=== PATIENT | female | born 1940 | race Caucasian/White ===

== ENCOUNTER → 2017-03-01 | Outpatient (CLI) | payer MEDICARE, OTHER ==
[2017-01-16 12:48] VITALS: BMI 28.3
[~2017-03-01] MED LIST: ACE325 PO; ACET-1718 PO; ACET-2007 PO; ACET-2031 PO; ACET-3017 PO; ACET500T68 PO; ADV250/50 INH; ADV250/50 PUFF; ALB18R INH; ALBU2.5V36 IH; ALBU2.5V36 INH; ALBU2.5V44 IH; ALBU8.5H IH; ALBU8.5H12 IH; ALBUDR INH; ALE70 PO; ALP5 PO; ALPR-429 PO; ALPR-448 PO; ALPR-459 PO; ALPR-698 PO; AMLO-1 PO; AMPH10CA13 PO; AMPH5CAP7 PO; APIX2.5T PO; APIX5TAB PO; ARTO15 OU; ASC500 PO; ASCO-273 PO; ASPI-719 PO; ASPI1TAB35 PO; ASPI81TA94 PO; AZIT-1 PO; AZIT-17 PO; AZIT500T47 PO; Apixaban PO; BEN100 PO; BENADRYL; BETA15OI20 TP; CEFU500T10 PO; CEL100 PO; CELE-1 PO; CEPH-13 PO; CHOL100062 PO; CHOL200025 PO; CIPR-214 PO; CIPR-215 PO; CIPR-326 PO; CIPR500T12 PO; CIPRO; CLO10 MT; CLON0.5T66 PO; CLOT15CR62 TP; CODE118S5 PO; CRAN400C2 PO; CRANBERRY; CYCL1DRO6 OP; CYCL1DRO6 OU; CYCOD OP; DABI150C3 PO; DAR100 PO; DEX4 PO; DEX5 PO; DEXADRINE; DEXT10CA10 PO; DEXT10CA2 PO; DEXT10CA8 PO; DEXT10TA PO; DEXT5CAP PO; DEXT5TAB PO; DEXT5TAB12 PO; DIG125 PO; DIGO125T73 PO; DIGO125T77 PO; DIGO125T90 PO; DILCD120 PO; DILT-145 PO; DILT120C18 PO; DILT120C28 PO; DILT300C41 PO; DILT30TA35 PO; DILT360C25 PO; DILT360C3 PO; DIPH-740 PO; DOC100 PO; DOCU-202 PO; DOCU-416 PO; DOXY-179 PO; DOXY150C4 PO; DUL30 PO; DULO30CA35 PO; DULO30CA4 PO; DULO60CA51 PO; DULO60CA56 PO; ERYT1OIN3 OP; ERYT1OIN3 OU; ESCI20TA38 PO; ESOM20CA31 PO; ESOM40CA42 PO; ESTR0.5T16 PO; ESTR0.5T18 PO; ESTR1PAT95 PO; ESTR2TAB26 PO; EXC PO; EXCEDRIN; EYELID CLEANSER COMBINATION TOP; FISH OIL; FISH OIL 500 M500 MG PO; FISH OIL1 CAP PO; FLE100 PO; FLU IM; FLU45SYR25 IM ONLY; FLUT16SP20 NS; FLUT1DIS28 IH; FLUT1DIS28 INH; FLUT1DIS29 IH; FLUT9.9S NS; FOLI-68 PO; FOSAMAX; FURO-43 PO; FURO-45 PO; FURO-47 PO; FURO20TA19 PO; GABA-549 PO; GLIM2TAB43 PO; GUAI600T PO; GUAI600T57 PO; HYDR-2966 PO; HYDR12.558 PO; HYDROCHLORATHIAZIDE; IBU200 PO; IRO150 PO; L.AC1CAP6 PO; LACT1CAP6 PO; LEV125 PO; LEV500 PO; LEV88 PO; LEVO-3 PO; LEVO-85 PO; LEVO100T95 PO; LEVO125T77 PO; LEVO150T72 PO; LEVO500T83 PO; LEVOXYL; LIS10 PO; LOR5/325 PO; LORA-630 PO; LORA-802 PO; MAGN-40 PO; MAGN296S6 PO; MAGN400T36 PO; MET10 PO; METH4TAB66 PO; METO-1 PO; METO-221 PO; METO-224 PO; METO-253 PO; METO-257 PO; METO-566 PO; METO-734 PO; METO25TA91 PO; METO25TA93 PO; METO5TAB75 PO; MIR15 PO; MIRT-17 PO; MIRT-20 PO; MIRT-22 PO; MIRT-25 PO; MIRT45TA97 PO; MOM PO; MONT10TA PO; MORP-1 PO; MORP-20 PO; MULT-27 PO; MULT-820 PO; MULT1TAB67 PO; MULTI VITAMIN; MULTIPLE VITAMIN; NIT4 SL; NITR-1 PO; NITR-105 PO; NITR0.3T6 SL; OLME1TAB49 PO; OMEP-125 PO; ONDA4TAB PO; ONDA4TAB97 PO; ONDA8TAB91 PO; OXCA150T45 PO; OXYGEN INH; OXYGENHOME INH; POLY17PO25 PO; POTA20TA10 PO; POTA20TA85 PO; POTA20TA94 PO; PRE10 PO; PRE20 PO; PRED-314 PO; PRED20TA6 PO; PROM-110 PO; RHYTHMOL PO; SENN8.6T34 PO; SPIR25TA78 PO; SPIR50TA31 PO; TEL40 PO; TIAZAC; TIO18R INH; TRAM100T PO; TRAZ-133 PO; TRAZ50 PO; TRI100 PO; TRIA15CR40 TP; VALERIAN ROOT; VEN375 PO; VENL37.514 PO; VENL75CA PO; VENL75CA58 PO; VIT D; VIT-7 PO; VIT500TA6 PO; VITAMIN C; WAR5 PO; WARF-18 PO; WARF2.5T11 PO; WARF2.5T62 PO; ZANTAC; [UNRECOGNIZED DRUG - CODE] PO; [UNRECOGNIZED DRUG - CODE] PO; [UNRECOGNIZED DRUG - CODE] PO; [UNRECOGNIZED DRUG - CODE] PO; [UNRECOGNIZED DRUG - CODE] PO; [UNRECOGNIZED DRUG - CODE] PO; [UNRECOGNIZED DRUG - CODE] PO; [UNRECOGNIZED DRUG - CODE] PO; [UNRECOGNIZED DRUG - CODE] PO; [UNRECOGNIZED DRUG - CODE] TP; [UNRECOGNIZED DRUG - MIXTURE] PO; [UNRECOGNIZED DRUG - OTHER]; [UNRECOGNIZED DRUG - OTHER]; [UNRECOGNIZED DRUG - OTHER] PO
== END ==
LOC: AMB 16:22
PROVIDERS: ATTEND Nurse Practitioner
DX: R55 Syncope and collapse (principal); R42 Dizziness and giddiness; M25.562 Pain in left knee; M25.561 Pain in right knee; W18.30XA Fall on same level, unspecified, initial encounter
CPT/HCPCS: A0425; A0427

== ENCOUNTER → 2017-03-01 | Outpatient (CLI) | payer MEDICARE, OTHER ==
[2017-01-16 12:48] VITALS: BMI 28.3
== END ==
LOC: AMB 18:52
PROVIDERS: ATTEND Nurse Practitioner
DX: Z74.09 Other reduced mobility (principal)
CPT/HCPCS: A0425; A0428

== ENCOUNTER 2017-03-06 22:01 | Emergency (ER) | payer MEDICARE, OTHER ==
[2017-01-16 12:48] VITALS: Ht 162.6 cm; Wt 75.1 kg
[~2017-03-06] VITALS: Ht 162.6 cm; Wt 75.1 kg
[~2017-03-06 22:01] MED LIST changes: -ACET500T68 PO; -CLO10 MT; -FOLI-68 PO; -LACT1CAP6 PO; -POLY17PO25 PO; -SENN8.6T34 PO; -[UNRECOGNIZED DRUG - OTHER]
[2017-03-06] MEDS ORDERED: ALBUTEROL/IPRATROPIUM 3 ML NEB NEB ONE (22:35)
--- NOTE | 2017-03-06 22:59 | ER Report ---
History and Physical Time Seen By MD: 22:08 Hx. of Stated Complaint: REPORTED THAT PT HAD ALTERED MENTAL STATUS. PT CURRENTLY A&OX3. HPI/ROS CHIEF COMPLAINT: Altered mental status, syncope, hypotension HISTORY OF PRESENT ILLNESS: 76-year-old female with a host of complex medical problems, most recently she was diagnosed with ovarian carcinomatosis. She is receiving chemotherapy treatments, the last was approximately 10 days ago. Patient was seen in the ER 5 days ago. Macrobid was added for potential urinary tract infection. She is chronically on Cipro for urinary tract suppression Was brought in by EMS from home. Per report from her family. She was unresponsive in her wheelchair. They documented hypotension. EMS states that she perked up immediately after stimulation from them by transferring her to the ambulance gurney. She was documented have stable vital signs by EMS. Patient's family reports no concurrent illness, fever, chills or productive cough. Patient's had no hypoglycemic episodes. She is chronically on Decadron. Family reports she's not missed any doses. Although adrenal insufficiency is considered. Patient's family also reports slurred speech for several hours prior to the syncopal episode. Patient takes numerous medications which could cause sedation. On arrival. Patient's alert and oriented 3 with stable vital signs and stable, pulse ox. There is an extensive oncology note noted from 02/18/17 which was reviewed. Patient's family notes she's been complaining of a dry sore throat since receiving chemotherapy. REVIEW OF SYSTEMS: Respiratory: No cough, no dyspnea. Cardiovascular: No chest pain, no palpitations. Gastrointestinal: No vomiting, no abdominal pain. Musculoskeletal: No back pain. Allergies: Coded Allergies: tetanus toxoid, adsorbed (Verified Allergy, Severe, HIVES, 03/01/17) SHANNA Inhibitors (Verified Allergy, Mild, 03/01/17) Penicillins (Verified Allergy, Mild, SWELLING, 03/01/17) Sulfa (Sulfonamide Antibiotics) (Verified Allergy, Mild, RASH, 03/01/17) prednisone (Verified Allergy, Mild, Hallucinations, 03/01/17) modafinil (Verified Adverse Reaction, Severe, 03/01/17) Suicidal ideation Home Meds Active Scripts Clotrimazole (CLOTRIMAZOLE) 10 Mg Troc, 10 MG MT 3-5 times daily Y for oral candidiasis, #30 Prov:CARLOTA CUNNINGHAM DO 03/07/17 Mirtazapine (MIRTAZAPINE) 15 Mg Tablet, 15 MG PO QHS, #90 TAB 1 Refill Prov:JOSHUA MCGILL APRN 02/26/17 Fluticasone/Salmeterol (ADVAIR 500-50 DISKUS) 1 Each Disk.w.dev, 1 EACH IH BID, #1 INHALER 11 Refills Prov:MANISHA VÁZQUEZ MD 02/23/17 Dextroamphetamine Sulfate (DEXTROAMPHETAMINE SULFATE) 5 Mg Tablet, 5 MG PO BID, #60 TAB Prov:JOSHUA MCGILL APRN 02/22/17 Oxcarbazepine (OXCARBAZEPINE) 150 Mg Tablet, 1 TAB PO BID for to stabilize mood. , #180 TAB 3 Refills Prov:JOSHUA MCGILL APRN 02/22/17 Diltiazem Hcl (DILTIAZEM 24HR ER) 120 Mg Cap.er.24h, 120 MG PO QHS, #30 TAB Prov:MANISHA VÁZQUEZ MD 02/16/17 Diltiazem Hcl (CARDIZEM CD) 180 Mg Cap.er.24h, 180 MG PO QAM, #30 CAP 1 Refill Prov:MANISHA VÁZQUEZ MD 02/16/17 Clonazepam (KLONOPIN) 0.5 Mg Tablet, 1 MG PO BID, #60 TAB Prov:MANISHA VÁZQUEZ MD 02/16/17 Metoprolol Tartrate (METOPROLOL TARTRATE) 50 Mg Tab, 1 TAB PO BID, #180 TAB 4 Refills Prov:MANISHA VÁZQUEZ MD 02/04/17 Dextroamphetamine Sulfate (DEXTROAMPHETAMINE SULFATE) 10 Mg Capsule.er, 10 MG PO QAM, #30 CAP 0 Refills Prov:MANISHA VÁZQUEZ MD 12/31/16 Promethazine Hcl (PROMETHAZINE HCL) 25 Mg Tablet, 25 MG PO PRN for Nausea, #30 TAB Max of 1 a day Prov:MANISHA VÁZQUEZ MD 12/19/16 Nitroglycerin (NITROSTAT) 0.4 Mg Subl, 1 TAB SL Q5MIN, #14 TAB[address] 1 tab under tongue at the 1st sign of chest pain; repeat every 5 min. Prov:JOSHUA MCGILL APRNP-C 11/20/16 Tramadol Hcl (TRAMADOL HCL ER) 100 Mg Tab.er.24h, 3 TAB PO QDAY, #90 TAB 5 Refills Prov:JOSHUA MCGILL APRN [employer]-C 11/13/16 Digoxin (DIGOXIN) 125 Mcg Tablet, 1 TAB PO DAILY for to control heart rate. , # 90 TAB 4 Refills Prov:MANISHA VÁZQUEZ MD 10/23/16 Esomeprazole Magnesium (NEXIUM) 40 Mg Capsule.dr, 1 CAP PO QDAY, #90 CAP 3 Refills Prov:MANISHA VÁZQUEZ MD 10/21/16 Gabapentin (GABAPENTIN) 300 Mg Capsule, 300 MG PO QHS, #30 CAPSULE 11 Refills Prov:MANISHA VÁZQUEZ MD 10/16/16 Levothyroxine Sodium (LEVOTHYROXINE SODIUM) 100 Mcg Tablet, 100 MCG PO QDAY, # 90 TAB 4 Refills Prov:TIKA SCHAEFFER DNP, [facility]- 10/14/16 Ciprofloxacin Hcl (CIPROFLOXACIN HCL) 250 Mg Tablet, 1 TAB PO QDAY, #90 TAB 3 Refills Prov:TIKA SCHAEFFER DNP, [facility]- 10/05/16 Tiotropium [place] (SPIRIVA) 18 Mcg/Cap Inh, 18 MCG INH QDAY, #1 INH 11 Refills Prov:MANISHA VÁZQUEZ MD 09/11/16 Glimepiride (GLIMEPIRIDE) 2 Mg Tablet, 1 TAB PO QDAY, #30 TAB 5 Refills Prov:MANISHA VÁZQUEZ MD 09/04/16 Escitalopram Oxalate (LEXAPRO) 20 Mg Tablet, 1.5 TAB PO QDAY, #90 TAB 3 Refills Prov:MANISHA VÁZQUEZ MD 07/29/16 Oxygen (OXYGEN) Inha, 3 L INH DIRECTED, #2 L Wear 3 L Nasal Canula during the day and continue same dose of oxgen at night. Pt. will need portable oxygen to leave the house. Prov:MANISHA VÁZQUEZ MD 03/13/16 Posen-3 (FISH OIL 500 MG SOFTGEL) 500 Mg Cap, 1000 MG PO QDAY, #30 CAP Prov:YANELIS SO MD 02/27/15 Hypromellose (NATURAL BALANCE TEARS) 15 Ml Drop, 0 ML OU PRN Y for dry eyes, #1 BOTTLE Prov:YANELIS SO MD 02/27/15 Cyclosporine (RESTASIS) 1 Each Droperette, 1 EACH OU BID, #1 BOTTLE Prov:YANELIS SO MD 02/27/15 Reported Medications Acetaminophen (TYLENOL EXTRA STRENGTH) 500 Mg Tablet, 500 MG PO PRN, TAB 03/07/17 Polyethylene Glycol 3350 (MIRALAX) 17 Gm Powd.pack, 17 GM PO ONCE Y for BOWELS, PKT 03/07/17 Sennosides (SENNA) 8.6 Mg Tablet, 8.6 MG PO QPM 03/07/17 Lactobacillus Combination No.4 (PROBIOTIC) 1 Each Capsule, 1 EACH PO QAM, CAPSULE 03/07/17 Folic Acid (FOLIC ACID) 1 Mg Tablet, 1 MG PO QAM, TAB 03/07/17 Dexamethasone 4 Mg Tab (DEXAMETHASONE 4 MG TAB) 4 Mg Tab, 4 MG PO BID for BEFORE DURING AND AFTER CHEMO for 3 Days, TAB 03/07/17 Dabigatran Etexilate Mesylate (PRADAXA) 150 Mg Capsule, 150 MG PO BID, CAPSULE 02/02/17 Magnesium Oxide (MAGNESIUM OXIDE) 400 Mg Tablet, 400 MG PO BID 08/26/16 Vit A,C & E/Lutein/Minerals (OCUVITE TABLET) 1 Each Tablet, 1 TAB PO QDAY 04/22/16 Cholecalciferol (Vitamin D3) (VITAMIN D3) 2,000 Unit Capsule, 2000 UNIT PO QDAY , CAPSULE 09/28/15 Discontinued Scripts Nitrofurantoin Monohyd/M-Cryst (MACROBID 100 MG CAPSULE) 100 Mg Capsule, 100 MG PO BID, #12 CAPSULE Prov:SHAHZAD HERRERA PA-C 03/01/17 Clotrimazole/Betamethasone Dip (LOTRISONE CREAM) 15 Gm Cream..g., 0 TP BID for 14 Days, #1 TUBE Prov:MANISHA VÁZQUEZ MD 02/03/17 Albuterol Sulfate 0.083% (ALBUTEROL SULFATE 0.083%) 2.5 Mg/3 Ml Vial.neb, 2.5 MG INH Q4-6H Y for SHORTNESS OF BREATH, #20 VIAL Prov:GINA RENDONP 9/6/17 Albuterol Sulfate 90 Mcg/Act (PROAIR HFA 90 MCG/ACT) 8.5 Gm Hfa.aer.ad, 2 PUFF IH Q4-6H, #1 INHALER 9 Refills Prov:MANISHA VÁZQUEZ MD 11/28/15 Past Medical/Surgical History PAST MEDICAL HISTORY 1. Asthma. 2. COPD. 3. Ascites. 4. Hypertension. 5. Hypothyroidism. 6. GERD. 7. CVA. 8. Atrial fibrillation. 9. Congestive heart failure. 10. Depression. PAST SURGICAL HISTORY 1. Status post hysterectomy. 2. Status post cholecystectomy. FAMILY HISTORY Mother with breast cancer. Her father had anemia Reviewed Nurses Notes: Yes Old Medical Records Reviewed: Yes Hx Smoking: No Smoking Status: Never Smoker Exposure to Second Hand Smoke?: No Hx Substance Use Disorder: No (Used Darvocet for pain for 25 years) Hx Alcohol Use: No Constitutional Vital Sign - Last 24 Hours 03/06/17 03/06/17 03/06/17 03/06/17 22:07 22:08 22:31 22:47 Temp 97.5 Pulse 69 65 66 Resp 14 17 20 B/P (MAP) 145/59 (87) 145/59 Pulse Ox 100 100 O2 Delivery Nasal Cannula 03/06/17 03/06/17 03/06/17 03/06/17 22:51 22:53 23:01 23:31 Pulse 71 67 Resp 20 16 15 B/P (MAP) 140/61 (87) Pulse Ox 97 99 O2 Delivery Nasal Cannula O2 Flow Rate 2.0 03/06/17 03/06/17 03/07/17 03/07/17 23:36 23:51 00:06 00:07 Pulse 68 68 74 Resp 10 11 15 Pulse Ox 99 99 O2 Flow Rate 3.0 03/07/17 03/07/17 00:21 00:36 Pulse 67 73 Resp 7 17 Pulse Ox 99 98 Physical Exam Vital signs stable, afebrile, pulse ox normal and baseline O2, alert and oriented 3 General Appearance: The patient is alert, has no immediate need for airway protection and no current signs of toxicity. Skin warm, dry, pink HEENT: Pupils equal and round no injection. TMs normal, oropharynx without redness or exudate, mucous. Membranes are dry Respiratory: Chest is non tender, lungs are clear to auscultation. Cardiac: regular rate and rhythm Gastrointestinal: Abdomen is soft and non tender, no masses, bowel sounds normal. Musculoskeletal: Neck: Neck is supple and non tender. No lymphadenopathy Extremities have full range of motion and are non tender. Skin: No rashes or lesions. DIFFERENTIAL DIAGNOSIS: After history and physical exam differential diagnosis was considered for syncope including but not limited to vasovagal syncope, arrhythmia, dehydration, and blood loss. Additionally,weakness including but not limited to electrolyte abnormality, depression, anxiety, CVA, spinal cord abnormality, toxicity from chemotherapy and infectious causes. Medical Decision Making Data Points Result Diagram: 03/06/17229903/06/172299 Laboratory Hematology Test 03/06/17 00:00 03/06/17 23:00 Digoxin Level 1.2 ng/ml Digoxin Last Dose Date unk Digoxin Last Dose Time unk Carbamazepine (Tegretol) Level < 3.0 ug/ml Carbamazepine Time Since Last Dose unk Carbamazepine Last Dose Date unk Red Blood Count 3.22 M/uL (4.17-5.56) Mean Corpuscular Volume 95.2 fL (80.0-96.0) Mean Corpuscular Hemoglobin 32.7 pg (26.0-33.0) Mean Corpuscular Hemoglobin Concent 34.4 g/dL (32.0-36.0) Red Cell Distribution Width 16.4 % (11.5-14.5) Mean Platelet Volume 8.0 fL (7.2-11.1) Neutrophils (%) (Auto) 71.9 % (39.4-72.5) Lymphocytes (%) (Auto) 9.5 % (17.6-49.6) Monocytes (%) (Auto) 16.8 % (4.1-12.4) Eosinophils (%) (Auto) 1.5 % (0.4-6.7) Basophils (%) (Auto) 0.3 % (0.3-1.4) Nucleated RBC Relative Count (auto) 0.0 /100WBC Neutrophils # (Auto) 4.7 K/uL (2.0-7.4) Lymphocytes # (Auto) 0.6 K/uL (1.3-3.6) Monocytes # (Auto) 1.1 K/uL (0.3-1.0) Eosinophils # (Auto) 0.1 K/uL (0.0-0.5) Basophils # (Auto) 0.0 K/uL (0.0-0.1) Nucleated RBC Absolute Count (auto) 0.00 K/uL Peripheral Blood Smear Yes Y/N Sodium Level 131 mmol/L (137-145) Potassium Level 4.1 mmol/L (3.5-5.0) Chloride Level 93 mmol/L (98-107) Carbon Dioxide Level 30 mmol/L (22-31) Blood Urea Nitrogen 27 mg/dl (7-18) Creatinine 1.10 mg/dl (0.52-1.04) Glomerular Filtration Rate Calc 48.2 Random Glucose 196 mg/dl (75-110) Calcium Level 8.9 mg/dl (8.4-10.2) Total Bilirubin 0.6 mg/dl (0.2-1.3) Aspartate Amino Transf (AST/SGOT) 36 U/L (0-35) Alanine Aminotransferase (ALT/SGPT) 43 U/L (0-56) Alkaline Phosphatase 111 U/L (0-126) Troponin I < 0.012 ng/ml B-Type Natriuretic Peptide 274 pg/ml (0-100) Total Protein 6.4 gm/dl (6.3-8.2) Albumin 3.2 g/dl (3.5-5.0) Chemistry Test 03/06/17 00:00 03/06/17 23:00 Digoxin Level 1.2 ng/ml Digoxin Last Dose Date unk Digoxin Last Dose Time unk Carbamazepine (Tegretol) Level < 3.0 ug/ml Carbamazepine Time Since Last Dose unk Carbamazepine Last Dose Date unk White Blood Count 6.6 k/uL (4.5-11.0) Red Blood Count 3.22 M/uL (4.17-5.56) Hemoglobin 10.6 g/dL (12.0-16.0) Hematocrit 30.7 % (34.0-47.0) Mean Corpuscular Volume 95.2 fL (80.0-96.0) Mean Corpuscular Hemoglobin 32.7 pg (26.0-33.0) Mean Corpuscular Hemoglobin Concent 34.4 g/dL (32.0-36.0) Red Cell Distribution Width 16.4 % (11.5-14.5) Platelet Count 139 K/uL (150-450) Mean Platelet Volume 8.0 fL (7.2-11.1) Neutrophils (%) (Auto) 71.9 % (39.4-72.5) Lymphocytes (%) (Auto) 9.5 % (17.6-49.6) Monocytes (%) (Auto) 16.8 % (4.1-12.4) Eosinophils (%) (Auto) 1.5 % (0.4-6.7) Basophils (%) (Auto) 0.3 % (0.3-1.4) Nucleated RBC Relative Count (auto) 0.0 /100WBC Neutrophils # (Auto) 4.7 K/uL (2.0-7.4) Lymphocytes # (Auto) 0.6 K/uL (1.3-3.6) Monocytes # (Auto) 1.1 K/uL (0.3-1.0) Eosinophils # (Auto) 0.1 K/uL (0.0-0.5) Basophils # (Auto) 0.0 K/uL (0.0-0.1) Nucleated RBC Absolute Count (auto) 0.00 K/uL Peripheral Blood Smear Yes Y/N Glomerular Filtration Rate Calc 48.2 Calcium Level 8.9 mg/dl (8.4-10.2) Total Bilirubin 0.6 mg/dl (0.2-1.3) Aspartate Amino Transf (AST/SGOT) 36 U/L (0-35) Alanine Aminotransferase (ALT/SGPT) 43 U/L (0-56) Alkaline Phosphatase 111 U/L (0-126) Troponin I < 0.012 ng/ml B-Type Natriuretic Peptide 274 pg/ml (0-100) Total Protein 6.4 gm/dl (6.3-8.2) Albumin 3.2 g/dl (3.5-5.0) Toxicology Test 03/06/17 00:00 Digoxin Level 1.2 ng/ml Digoxin Last Dose Date unk Digoxin Last Dose Time unk Carbamazepine (Tegretol) Level < 3.0 ug/ml Carbamazepine Time Since Last Dose unk Carbamazepine Last Dose Date unk EKG/Imaging EKG Interpretation 12 lead EK Rhythm: Atrial fibrillation, a rate of 75 bpm [place]: normal QRS: normal ST segments: Nonspecific ST and T-wave slurring? Digitalis effect, comparison to previous EKG dated 03/01/17, no significant change ED Course/Re-evaluation Clinical Indication for ER IV: IV Access ED Course Patient was admitted to an examination room. H&P was done. The differential diagnosis was considered. On clinical examination. Patient's alert and oriented 3. She has stable vital signs. She's voicing no complaints. Apparently she had a syncopal episode or fell asleep in her chair. I'm suspicious that she is overmedicated. Patient noted some slurred speech throughout the afternoon. She takes numerous sedating medications. A CT of the head was performed which was unremarkable for acute disease. Her diagnostic laboratory studies look good. Patient has follow-up scheduled with Dr. Traylor on Wednesday. I see no indication for admission at this time. Patient 's other complaint was a dry sore throat. I recommended Biotene moisturizing solution or lozengers. Mycelex troches were prescribed for potential oral candidiasis. Decision to Disposition Date: Mar 07, 2017 Decision to Disposition Time: 00:28 Depart Departure Latest Vital Signs Vital Signs Date Time Temp Pulse Resp B/P (MAP) Pulse Ox O2 Delivery O2 Flow Rate FiO2 03/07/17 00:36 73 17 98 03/07/17 00:07 3.0 03/06/17 23:31 140/61 (87) 03/06/17 22:51 Nasal Cannula 03/06/17 22:08 97.5 Impression: Primary Impression: Weakness Additional Impressions: Altered mental status, unspecified Ovarian cancer Sore throat Condition: Improved Disposition: HOME OR SELF-CARE Referrals: MANISHA VÁZQUEZ MD (PCP) New Scripts Clotrimazole (CLOTRIMAZOLE) 10 Mg Troc 10 MG MT 3-5 times daily Y for oral candidiasis, #30 Prov: CARLOTA CUNNINGHAM DO 03/07/17 Patient Instructions: Oral Candidiasis (ED) Additional Instructions: Use Biotene solution or candies to moisturize mouth and throat Follow-up with primary care as planned on Wednesday Problem Qualifiers Additional Impressions: Altered mental status, unspecified Altered mental status type: unspecified Qualified Codes: R41.82 - Altered mental status, unspecified Ovarian cancer Laterality: unspecified laterality Qualified Codes: C56.9 - Malignant neoplasm of unspecified ovary CARLOTA CUNNINGHAM DO Mar 06, 2017 22:58
--- NOTE | 2017-03-06 23:01 | EKG ---
FACILITY: [facility] PATIENT NAME: PEGGY LOZOYA : [id number] MR: [id number] V: [id number] EXAM DATE: ORDERING PHYSICIAN: CARLOTA CUNNINGHAM TECHNOLOGIST: STEPHANY Test Reason : DYSPNEA AMS Blood Pressure : / mmHG Vent. Rate : 075 BPM Atrial Rate : 357 BPM P-R Int : 000 ms QRS Dur : 096 ms QT Int : 406 ms P-R-T Axes : 000 021 097 degrees QTc Int : 453 ms Atrial fibrillation with a competing junctional pacemaker Nonspecific ST and T wave abnormality , probably digitalis effect Abnormal ECG When compared with ECG of 01-MAR-2017 17:03, No significant change was found Confirmed by YARELIS VAZ ([id number]) on 03/07/2017 3:05:01 PM Referred By: Confirmed By:YARELIS VZA
[2017-03-06 23:14] LABS: PLATELET COUNT, AUTOMATED 139 K/uL (150-450)
[2017-03-06 23:31] VITALS: BP 140/61
--- NOTE | 2017-03-06 23:45 | RADIOLOGY IMAGING REPORT ---
FACILITY: [facility] PATIENT NAME: El Hastings : 1940 MR: [id number] V: [id number] EXAM DATE: ORDERING PHYSICIAN: CARLOTA CUNNINGHAM TECHNOLOGIST: Location: [facility] Patient: El Hastings : 1940 Visit/Account:[id number] Date of Sevice: 03/06/2017 CHEST SINGLE AP History: Respiratory distress Comparison 03/01/2017. FINDINGS: Cardiomegaly and mediastinal contour stable. No focal consolidation. Mild bibasilar atelectasis. No g ross effusion. No pneumothorax. Right-sided chest port in place. IMPRESSION: Mild bibasilar atelectasis, otherwise no evidence of acute cardiopulmonary disease. Report Dictated By: Rudy Hameed MD at 03/06/2017 11:39 PM Report E-Signed By: Rudy Hameed MD at 03/06/2017 11:41 PM WSN:[id number]
--- NOTE | 2017-03-06 23:48 | RADIOLOGY IMAGING REPORT ---
FACILITY: [facility] [place] PATIENT NAME: El Hastings : 1940 MR: [id number] V: [id number] EXAM DATE: ORDERING PHYSICIAN: CARLOTA CUNNINGHAM TECHNOLOGIST: Location: [facility] [place] Patient: El Hastings : 1940 Visit/Account:[id number] Date of Sevice: 03/06/2017 EXAMINATION: Head CT without intravenous contrast History:Altered mental status TECHNIQUE: Contiguous axial images were obtained from the skull base to the vertex without intraven ous contrast. One of the following dose optimization techniques was utilized in the performance of th is exam: Automated exposure control; adjustment of the mA and/or kV according to the patient's size; or use of an iterative reconstruction technique. Specific details can be referenced in the facility 's radiology CT exam operational policy. COMPARISON STUDIES: 03/01/2017 FINDINGS: Visualized mastoid air cells / paranasal sinuses: Mucosal thickening with increased fluid level left maxillary sinus. Skull base / calvarium: negative White matter: Moderate chronic small vessel disease with evidence of multiple remote lacunar infarcts in the basal ganglia. Dural venous sinuses / arterial structures: negative Ventricles / sulci / fissures: Enlarged but within normal limits for age. Masses / hemorrhage / midline shift: negative Extra-axial spaces: negative IMPRESSION: 1. No evidence of an intracranial mass, hemorrhage or acute cortical infarct. 2. Stable findings of moderate chronic small vessel disease and multiple remote lacunar infarcts in t he basal ganglia. 3. Progression of left maxillary paranasal sinus disease. Report Dictated By: Rudy Hameed MD at 03/06/2017 11:41 PM Report E-Signed By: Rudy Hameed MD at 03/06/2017 11:44 PM WSN:[id number]
[2017-03-07] MEDS ORDERED: DEX4 PO
[2017-03-07] MEDS ORDERED: FOLI-68 PO (00:04)
[2017-03-07] MEDS ORDERED: LACT1CAP6 PO (00:04)
[2017-03-07] MEDS ORDERED: SENN8.6T34 PO (00:05)
[2017-03-07] MEDS ORDERED: POLY17PO25 PO (00:06)
[2017-03-07] MEDS ORDERED: ACET500T68 PO (00:07)
[2017-03-07] MEDS ORDERED: CLO10 MT (00:31)
[2017-03-07] MEDS ORDERED: HEPARIN FLSH (PORT) 500 UN/5ML ONE (00:43)
== END 2017-03-07 00:57 | disposition home or self-care (01) ==
LOC: ER 22:06
DX: R41.82 Altered mental status, unspecified (principal); R53.1 Weakness; C56.9 Malignant neoplasm of unspecified ovary; J02.9 Acute pharyngitis, unspecified; R06.00 Dyspnea, unspecified; I48.91 Unspecified atrial fibrillation; Z95.0 Presence of cardiac pacemaker
CPT/HCPCS: 70450; 71010; 80156; 80162; 83880; 84484; 85025; 93005; 94640; 99284; J1642; J7620; 82040; 82247; 82310; 82374; 82435; 82565; 82947; 84075; 84132; 84155; 84295; 84450; 84460; 84520

== ENCOUNTER → 2017-03-06 | Outpatient (CLI) | payer MEDICARE, OTHER ==
[2017-03-10 15:50] VITALS: BMI 28.5
== END ==
LOC: AMB 21:49
PROVIDERS: ATTEND Nurse Practitioner
DX: R41.82 Altered mental status, unspecified (principal); I95.9 Hypotension, unspecified
CPT/HCPCS: A0425; A0429

== ENCOUNTER → 2017-03-07 | Outpatient (CLI) | payer MEDICARE, OTHER ==
[~2017-03-07] MED LIST changes: +ACET500T68 PO; +CLO10 MT; +FOLI-68 PO; +LACT1CAP6 PO; +POLY17PO25 PO; +SENN8.6T34 PO; +[UNRECOGNIZED DRUG - OTHER]
[2017-03-10 15:50] VITALS: BMI 28.5
== END ==
LOC: AMB 00:46
PROVIDERS: ATTEND Nurse Practitioner
DX: R53.1 Weakness (principal); C56.9 Malignant neoplasm of unspecified ovary
CPT/HCPCS: A0425; A0428

== ENCOUNTER 2017-03-09 13:27 | Inpatient (IN) | payer MEDICARE, OTHER ==
[~2017-03-09] VITALS: Ht 162.6 cm; Wt 75.3 kg
[~2017-03-09 13:27] MED LIST changes: -[UNRECOGNIZED DRUG - OTHER]
--- NOTE | 2017-03-09 13:33 | ER Report ---
History and Physical Time Seen By : 13:32 HPI/ROS CHIEF COMPLAINT: Altered mental status HISTORY OF PRESENT ILLNESS: 76-year-old female patient presents to emergency room with complaint of altered mental status. Patient has a history of breast cancer and is well-known to emergency room. Her family states that the last couple days she's not been acting like herself. She's been more fatigued, more lethargic. They state that she's not had any fevers, chills, nausea, vomiting or diarrhea. He states that she just does not seem to be normal. She was seen in the emergency room 2 days ago and was discharged home. Family states she's gotten worse. They did take her to see her primary care provider who evaluated her and felt that she likely is dehydrated should be admitted. She talked with the hospitalist who recommended she come over here for further evaluation and workup. REVIEW OF SYSTEMS: Unable to obtain due to patient's mental status Allergies: Coded Allergies: tetanus toxoid, adsorbed (Verified Allergy, Severe, HIVES, 03/09/17) SHANNA Inhibitors (Verified Allergy, Mild, 03/09/17) Penicillins (Verified Allergy, Mild, SWELLING, 03/09/17) Sulfa (Sulfonamide Antibiotics) (Verified Allergy, Mild, RASH, 03/09/17) prednisone (Verified Allergy, Mild, Hallucinations, 03/09/17) modafinil (Verified Adverse Reaction, Severe, 03/09/17) Suicidal ideation Home Meds Active Scripts Clotrimazole (CLOTRIMAZOLE) 10 Mg Troc, 10 MG MT 3-5 times daily Y for oral candidiasis, #30 Prov:CARLOTA CUNNINGHAM DO 03/07/17 Mirtazapine (MIRTAZAPINE) 15 Mg Tablet, 15 MG PO QHS, #90 TAB 1 Refill Prov:JOSHUA MCGILL APRN-C 02/26/17 Fluticasone/Salmeterol (ADVAIR 500-50 DISKUS) 1 Each Disk.w.dev, 1 EACH IH BID, #1 INHALER 11 Refills Prov:MANISHA VÁZQUEZ MD 02/23/17 Dextroamphetamine Sulfate (DEXTROAMPHETAMINE SULFATE) 5 Mg Tablet, 5 MG PO BID, #60 TAB Prov:JOSHUA MCGILL APRNP-C 02/22/17 Oxcarbazepine (OXCARBAZEPINE) 150 Mg Tablet, 1 TAB PO BID for to stabilize mood. , #180 TAB 3 Refills Prov:JOSHUA MCGILL APRN 02/22/17 Diltiazem Hcl (DILTIAZEM 24HR ER) 120 Mg Cap.er.24h, 120 MG PO QHS, #30 TAB Prov:MANISHA VÁZQUEZ MD 02/16/17 Diltiazem Hcl (CARDIZEM CD) 180 Mg Cap.er.24h, 180 MG PO QAM, #30 CAP 1 Refill Prov:MANISHA VÁZQUEZ MD 02/16/17 Clonazepam (KLONOPIN) 0.5 Mg Tablet, 1 MG PO BID, #60 TAB Prov:MANISHA VÁZQUEZ MD 02/16/17 Metoprolol Tartrate (METOPROLOL TARTRATE) 50 Mg Tab, 1 TAB PO BID, #180 TAB 4 Refills Prov:MANISHA VÁZQUEZ MD 02/04/17 Dextroamphetamine Sulfate (DEXTROAMPHETAMINE SULFATE) 10 Mg Capsule.er, 10 MG PO QAM, #30 CAP 0 Refills Prov:MANISHA VÁZQUEZ MD 12/31/16 Promethazine Hcl (PROMETHAZINE HCL) 25 Mg Tablet, 25 MG PO PRN for Nausea, #30 TAB Max of 1 a day Prov:MANISHA VÁZQUEZ MD 12/19/16 Nitroglycerin (NITROSTAT) 0.4 Mg Subl, 1 TAB SL Q5MIN, #14 TAB[address] 1 tab under tongue at the 1st sign of chest pain; repeat every 5 min. Prov:JOSHUA MCGILL APRN 11/20/16 Tramadol Hcl (TRAMADOL HCL ER) 100 Mg Tab.er.24h, 3 TAB PO QDAY, #90 TAB 5 Refills Prov:JOSHUA MCGILL APRN 11/13/16 Digoxin (DIGOXIN) 125 Mcg Tablet, 1 TAB PO DAILY for to control heart rate. , # 90 TAB 4 Refills Prov:MANISHA VÁZQUEZ MD 10/23/16 Esomeprazole Magnesium (NEXIUM) 40 Mg Capsule.dr, 1 CAP PO QDAY, #90 CAP 3 Refills Prov:MANISHA VÁZQUEZ MD 10/21/16 Gabapentin (GABAPENTIN) 300 Mg Capsule, 300 MG PO QHS, #30 CAPSULE 11 Refills Prov:MANISHA VÁZQUEZ MD 10/16/16 Levothyroxine Sodium (LEVOTHYROXINE SODIUM) 100 Mcg Tablet, 100 MCG PO QDAY, # 90 TAB 4 Refills Prov:TIKA SCHAEFFER DNP, [facility] 10/14/16 Ciprofloxacin Hcl (CIPROFLOXACIN HCL) 250 Mg Tablet, 1 TAB PO QDAY, #90 TAB 3 Refills Prov:TIKA SCHAEFFER DNP, [facility] 10/05/16 Tiotropium Albert (SPIRIVA) 18 Mcg/Cap Inh, 18 MCG INH QDAY, #1 INH 11 Refills Prov:MANISHA VÁZQUEZ MD 09/11/16 Glimepiride (GLIMEPIRIDE) 2 Mg Tablet, 1 TAB PO QDAY, #30 TAB 5 Refills Prov:MANISHA VÁZQUEZ MD 09/04/16 Escitalopram Oxalate (LEXAPRO) 20 Mg Tablet, 1.5 TAB PO QDAY, #90 TAB 3 Refills Prov:MANISHA VÁZQUEZ MD 07/29/16 Oxygen (OXYGEN) Inha, 3 L INH DIRECTED, #2 L Wear 3 L Nasal Canula during the day and continue same dose of oxgen at night. Pt. will need portable oxygen to leave the house. Prov:MANISHA VÁZQUEZ MD 03/13/16 Saluda-3 (FISH OIL 500 MG SOFTGEL) 500 Mg Cap, 1000 MG PO QDAY, #30 CAP Prov:YANELIS SO MD 02/27/15 Hypromellose (NATURAL BALANCE TEARS) 15 Ml Drop, 0 ML OU PRN Y for dry eyes, #1 BOTTLE Prov:YANELIS SO MD 02/27/15 Cyclosporine (RESTASIS) 1 Each Droperette, 1 EACH OU BID, #1 BOTTLE Prov:YANELIS SO MD 02/27/15 Reported Medications [Misolex] No Conflict Check 03/09/17 Acetaminophen (TYLENOL EXTRA STRENGTH) 500 Mg Tablet, 500 MG PO PRN, TAB 03/07/17 Polyethylene Glycol 3350 (MIRALAX) 17 Gm Powd.pack, 17 GM PO ONCE Y for BOWELS, PKT 03/07/17 Sennosides (SENNA) 8.6 Mg Tablet, 8.6 MG PO QPM 03/07/17 Lactobacillus Combination No.4 (PROBIOTIC) 1 Each Capsule, 1 EACH PO QAM, CAPSULE 03/07/17 Folic Acid (FOLIC ACID) 1 Mg Tablet, 1 MG PO QAM, TAB 03/07/17 Dexamethasone 4 Mg Tab (DEXAMETHASONE 4 MG TAB) 4 Mg Tab, 4 MG PO BID for BEFORE DURING AND AFTER CHEMO for 3 Days, TAB 03/07/17 Dabigatran Etexilate Mesylate (PRADAXA) 150 Mg Capsule, 150 MG PO BID, CAPSULE 02/02/17 Magnesium Oxide (MAGNESIUM OXIDE) 400 Mg Tablet, 400 MG PO BID 08/26/16 Vit A,C & E/Lutein/Minerals (OCUVITE TABLET) 1 Each Tablet, 1 TAB PO QDAY 04/22/16 Cholecalciferol (Vitamin D3) (VITAMIN D3) 2,000 Unit Capsule, 2000 UNIT PO QDAY , CAPSULE 09/28/15 Discontinued Scripts Nitrofurantoin Monohyd/M-Cryst (MACROBID 100 MG CAPSULE) 100 Mg Capsule, 100 MG PO BID, #12 CAPSULE Prov:SHAHZAD HERRERA PA-C 03/01/17 Clotrimazole/Betamethasone Dip (LOTRISONE CREAM) 15 Gm Cream..g., 0 TP BID for 14 Days, #1 TUBE Prov:MANISHA VÁZQUEZ MD 02/03/17 Albuterol Sulfate 0.083% (ALBUTEROL SULFATE 0.083%) 2.5 Mg/3 Ml Vial.neb, 2.5 MG INH Q4-6H Y for SHORTNESS OF BREATH, #20 VIAL Prov:GINA RENDON 11/11/16 Albuterol Sulfate 90 Mcg/Act (PROAIR HFA 90 MCG/ACT) 8.5 Gm Hfa.aer.ad, 2 PUFF IH Q4-6H, #1 INHALER 9 Refills Prov:MANISHA VÁZQUEZ MD 11/28/15 Past Medical/Surgical History Patient has a past medical history of narcolepsy, dementia, A. fib, congestive heart failure, DVT, hypertension, sleep apnea, asthma, pneumonia, COPD, reflux, ovarian cancer, arthritis, osteoporosis, back pain, hypothyroidism. Patient has a surgical history of angiography, appendectomy, cholecystectomy, bilateral knee surgery, right hip surgery, screws and back, rotator cuff surgery , tonsillectomy, glaucoma surgery. Patient has a family medical history of cancer, stroke. Reviewed Nurses Notes: Yes Hx Smoking: No Smoking Status: Never Smoker Exposure to Second Hand Smoke?: No Hx Substance Use Disorder: No (Used Darvocet for pain for 25 years) Hx Alcohol Use: No Constitutional Vital Sign - Last 24 Hours 03/09/17 03/09/17 03/09/17 03/09/17 13:33 13:37 13:57 14:00 Temp 99.2 Pulse 120 Resp 20 B/P (MAP) 116/72 116/72 (87) 132/90 (104) Pulse Ox 96 98 O2 Delivery Nasal Cannula 03/09/17 03/09/17 03/09/17 03/09/17 14:05 14:10 14:32 14:40 Pulse 116 120 98 B/P (MAP) 133/85 (101) Pulse Ox 98 98 03/09/17 03/09/17 03/09/17 03/09/17 15:10 15:30 15:40 16:00 Pulse 84 85 B/P (MAP) 148/86 (106) 156/73 (100) Pulse Ox 98 97 03/09/17 03/09/17 03/09/17 03/09/17 16:05 16:30 16:35 17:00 Pulse 74 81 B/P (MAP) 129/51 (77) 134/63 (86) Pulse Ox 96 98 03/09/17 17:05 Pulse 70 Pulse Ox 98 Intake and Output 03/09/17 03/09/17 03/10/17 15:00 23:00 07:00 Output Total 50 ml Balance -50 ml Physical Exam General Appearance: The patient is alert, has no immediate need for airway protection and no current signs of toxicity. Respiratory: Chest is non tender, lungs are clear to auscultation. Cardiac: regular rate and rhythm Gastrointestinal: Abdomen is soft and non tender, no masses, bowel sounds normal. Musculoskeletal: Neck: Neck is supple and non tender. Extremities have full range of motion and are non tender. Skin: No rashes or lesions. Neuro: Patient struggled answering questions, patient has very little energy, she is slumped over in her chair. Patient was transferred to bed, which took 3 staff to transfer. DIFFERENTIAL DIAGNOSIS: After history and physical exam differential diagnosis was considered for weakness, urinary tract infection, stroke, MD. Medical Decision Making Data Points Laboratory Hematology Test 03/09/17 13:48 03/09/17 14:03 03/09/17 16:00 Ammonia 15 UMOL/L (9-33) Troponin I < 0.012 ng/ml Serum Alcohol < 10 mg/dl Blood Gas Puncture Site Right radial Blood Gas Patient Temperature 99.2 DEGREES Arterial Blood pH 7.50 (7.35-7.45) Arterial Blood Partial Pressure CO2 33 mmHg (32-37) Arterial Blood Partial Pressure O2 106 mmHg (60-80) Arterial Blood HCO3 26 mmol/L (20-26) Arterial Blood Oxygen Saturation 99 % (92-100) Arterial Blood Base Excess 2.0 mmol/L Hardeep Test Acceptable Oxygen Liters/Minute 4l Urine Color Zehra Urine Clarity Cloudy Urine pH 5.0 pH (4.8-9.5) Urine Specific Andrews 1.015 Urine Protein 30 mg/dL (NEGATIVE) Urine Glucose (UA) Negative mg/dL (NEGATIVE) Urine Ketones Negative mg/dL (NEGATIVE) Urine Blood Negative (NEGATIVE) Urine Nitrite Negative (NEGATIVE) Urine Bilirubin Negative (NEGATIVE) Urine Urobilinogen Negative mg/dL (0.2-1.9) Urine Leukocyte Esterase Large (NEGATIVE) Urine RBC <1 /HPF (0-2/HPF) Urine WBC 149 /HPF (0-5/HPF) Urine WBC Clumps Many /HPF Urine Squamous Epithelial Cells None /LPF (</=FEW) Urine Transitional Epithelial Cells Many /LPF (NONE-FEW) Urine Bacteria Many /HPF (NONE-FEW) Urine Mucus Few /HPF (NONE-FEW) Urine Opiates Screen Negative Urine Barbiturates Screen Negative Ur Tricyclic Antidepressants Screen Negative Urine Phencyclidine Screen Negative Urine Amphetamines Screen Positive Urine Benzodiazepines Screen Negative Urine Cocaine Screen Negative Urine Cannabinoids Screen Negative Chemistry Test 03/09/17 13:48 03/09/17 14:03 03/09/17 16:00 Ammonia 15 UMOL/L (9-33) Troponin I < 0.012 ng/ml Serum Alcohol < 10 mg/dl Blood Gas Puncture Site Right radial Blood Gas Patient Temperature 99.2 DEGREES Arterial Blood pH 7.50 (7.35-7.45) Arterial Blood Partial Pressure CO2 33 mmHg (32-37) Arterial Blood Partial Pressure O2 106 mmHg (60-80) Arterial Blood HCO3 26 mmol/L (20-26) Arterial Blood Oxygen Saturation 99 % (92-100) Arterial Blood Base Excess 2.0 mmol/L Hardeep Test Acceptable Oxygen Liters/Minute 4l Urine Color Zehra Urine Clarity Cloudy Urine pH 5.0 pH (4.8-9.5) Urine Specific Andrews 1.015 Urine Protein 30 mg/dL (NEGATIVE) Urine Glucose (UA) Negative mg/dL (NEGATIVE) Urine Ketones Negative mg/dL (NEGATIVE) Urine Blood Negative (NEGATIVE) Urine Nitrite Negative (NEGATIVE) Urine Bilirubin Negative (NEGATIVE) Urine Urobilinogen Negative mg/dL (0.2-1.9) Urine Leukocyte Esterase Large (NEGATIVE) Urine RBC <1 /HPF (0-2/HPF) Urine WBC 149 /HPF (0-5/HPF) Urine WBC Clumps Many /HPF Urine Squamous Epithelial Cells None /LPF (</=FEW) Urine Transitional Epithelial Cells Many /LPF (NONE-FEW) Urine Bacteria Many /HPF (NONE-FEW) Urine Mucus Few /HPF (NONE-FEW) Urine Opiates Screen Negative Urine Barbiturates Screen Negative Ur Tricyclic Antidepressants Screen Negative Urine Phencyclidine Screen Negative Urine Amphetamines Screen Positive Urine Benzodiazepines Screen Negative Urine Cocaine Screen Negative Urine Cannabinoids Screen Negative Toxicology Test 03/09/17 13:48 03/09/17 16:00 Serum Alcohol < 10 mg/dl Urine Opiates Screen Negative Urine Barbiturates Screen Negative Ur Tricyclic Antidepressants Screen Negative Urine Phencyclidine Screen Negative Urine Amphetamines Screen Positive Urine Benzodiazepines Screen Negative Urine Cocaine Screen Negative Urine Cannabinoids Screen Negative Urinalysis Test 03/09/17 16:00 Urine Color Zhera Urine Clarity Cloudy Urine pH 5.0 pH (4.8-9.5) Urine Specific Andrews 1.015 Urine Protein 30 mg/dL (NEGATIVE) Urine Glucose (UA) Negative mg/dL (NEGATIVE) Urine Ketones Negative mg/dL (NEGATIVE) Urine Blood Negative (NEGATIVE) Urine Nitrite Negative (NEGATIVE) Urine Bilirubin Negative (NEGATIVE) Urine Urobilinogen Negative mg/dL (0.2-1.9) Urine Leukocyte Esterase Large (NEGATIVE) Urine RBC <1 /HPF (0-2/HPF) Urine WBC 149 /HPF (0-5/HPF) Urine WBC Clumps Many /HPF Urine Squamous Epithelial Cells None /LPF (</=FEW) Urine Transitional Epithelial Cells Many /LPF (NONE-FEW) Urine Bacteria Many /HPF (NONE-FEW) Urine Mucus Few /HPF (NONE-FEW) EKG/Imaging EKG Interpretation 12 lead EKG: Rhythm: Atrial fibrillation with RVR, ventricular rate of 106 bpm [place]: normal QRS: normal ST segments: ST depression in V2 through V6 as well as V1. Imaging Exam type: CHEST SINGLE AP History: AMS Comparison: March 06, 2017. Findings: Cardiac silhouette is enlarged but unchanged. There Is a implanted right IJ port with the distal tip projecting over the superior vena cava. There is very mild haziness over the inferolateral right thorax which could represent a developing airspace consolidation or small right pleural effusion. There is no evidence of overt pulmonary edema. Extensive degenerative changes of both shoulder joints noted IMPRESSION: 1. Cardiomegaly unchanged Subtle haziness over the inferolateral right thorax which could be related to developing airspace consolidation versus small right pleural effusion Report Dictated By: Ricarda Candelario MD at 03/09/2017 3:13 PM Report E-Signed By: Ricarda Candelario MD at 03/09/2017 3:14 PM ED Course/Re-evaluation ED Course Patient was admitted to examine room, history of physical or obtained. Differential diagnoses were considered. On examination patient has some altered mental status. Lungs are clear, heart is regular. A CBC, CMP were done in the cancer center. The emergency room patient had an ABG which was done which showed an elevated PO2 of 106, ammonia 15 and a negative alcohol. Urinalysis was also done which showed a large urinary tract infection with 149 I blood cells per high-power field. Patient had a purulent drainage from the catheter replaced. Chest x-ray, CT scan of the head were done. The CT scan was negative, the chest x-ray was also negative. The EKG showed fibrillation with rapid ventricular response, patient has a ventricular rate of 106 bpm. a troponin was done which was negative. I discussed the case with Dr. Duncan Basurto, hospitalist who agreed to accept the patient for admission with diagnosis of altered mental status, urinary tract infection. Discussed this with the patient and her family who verbalized understanding and agreement. Decision to Disposition Date: Mar 09, 2017 Decision to Disposition Time: 17:11 Depart Departure Latest Vital Signs Vital Signs Date Time Temp Pulse Resp B/P (MAP) Pulse Ox O2 Delivery O2 Flow Rate FiO2 03/09/17 17:05 70 98 1/2/18 17:00 134/63 (86) 03/09/17 13:33 99.2 20 Nasal Cannula Impression: Primary Impression: UTI (urinary tract infection) Additional Impression: Altered mental status Condition: Condition Unchanged Disposition: Admitted from ER Referrals: MANISHA VÁZQUEZ MD (PCP) Problem Qualifiers Primary Impression: UTI (urinary tract infection) Urinary tract infection type: acute cystitis Hematuria presence: without hematuria Qualified Codes: N30.00 - Acute cystitis without hematuria Additional Impression: Altered mental status Altered mental status type: transient alteration of awareness Qualified Codes : R40.4 - Transient alteration of awareness GINA RENDON Mar 09, 2017 13:33
[2017-03-09] MEDS ORDERED: [UNRECOGNIZED DRUG - OTHER] (13:42)
--- NOTE | 2017-03-09 14:00 | EKG ---
[place] [facility] [place] NAME: PEGGY LOZOYA : [id number] MR: [id number] V: [id number] EXAM DATE: ORDERING PHYSICIAN: GINA RENDON TECHNOLOGIST: Willard Juarez Reason : Blood Pressure : / mmHG Vent. Rate : 106 BPM Atrial Rate : 083 BPM P-R Int : 000 ms QRS Dur : 106 ms QT Int : 296 ms P-R-T Axes : 000 006 201 degrees QTc Int : 393 ms Atrial fibrillation with rapid ventricular response Marked ST abnormality, possible lateral subendocardial injury Abnormal ECG When compared with ECG of 06-MAR-2017 22:47, ST now depressed in Anterolateral leads T wave inversion now evident in Inferior leads QT has shortened Confirmed by VICTOR HUGO RUBI ([id number]) on 03/10/2017 1:56:58 AM Referred By: Confirmed By:VICTOR HUGO RUBI
--- NOTE | 2017-03-09 15:18 | RADIOLOGY IMAGING REPORT ---
FACILITY: [facility] PATIENT NAME: El Hastings : 1940 MR: [id number] V: [id number] EXAM DATE: ORDERING PHYSICIAN: GINA RENDON TECHNOLOGIST: [facility] Patient: El Hastings : 1940 Visit/Account:[id number] Date of Sevice: 03/09/2017 Exam type: CHEST SINGLE AP History: AMS Comparison: March 06, 2017. Findings: Cardiac silhouette is enlarged but unchanged. There Is a implanted right IJ port with the distal tip projecting over the superior vena cava. There is very mild haziness over the inferolateral right th orax which could represent a developing airspace consolidation or small right pleural effusion. Ther e is no evidence of overt pulmonary edema. Extensive degenerative changes of both shoulder joints no leatha IMPRESSION: 1. Cardiomegaly unchanged Subtle haziness over the inferolateral right thorax which could be related to developing airspace con solidation versus small right pleural effusion Report Dictated By: Ricarda Candelario MD at 03/09/2017 3:13 PM Report E-Signed By: Ricarda Candelario MD at 03/09/2017 3:14 PM [id number]
--- NOTE | 2017-03-09 16:45 | RADIOLOGY IMAGING REPORT ---
[place] [facility] [place]: El Hastings : 1940 MR: [id number] V: [id number] EXAM DATE: ORDERING PHYSICIAN: GINA RENDON TECHNOLOGIST: [place] [facility] [place] El [place] : 1940 Visit/Account:[id number] Date of Sevice: 03/09/[address] scan without contrast COMPARISONS: 03/06/2017 HISTORY: Altered TECHNIQUE: Non-contrast head CT was performed with sagittal and coronal reformations. One of the following dose optimization techniques was utilized in the performance of this exam: autom ated exposure control; adjustment of the mA and/or kV according to patient size; or use of iterative reconstruction technique. Specific details can be referenced in the facility's radiology CT exam ope rational policy. FINDINGS: There is no intracranial hemorrhage, hydrocephalus or midline shift. The basal cisterns, clemons-white differentiation, and convexity sulci are maintained. Vascular calcifications noted. Mild atrophy. Cat aract postsurgical change noted. Bilateral unchanged chronic lacunar infarcts. Unchanged patchy white matter hypoattenuation. Clear mastoid air cells, left maxillary sinus mucosal thickening. No acute osseous abnormality. IMPRESSION: No acute intracranial abnormality. Unchanged bilateral chronic lacunar infarcts and unchanged moderate chronic small vessel ischemic ronny nge. Report Dictated By: Reg Keane MD at 03/09/2017 4:35 PM Report E-Signed By: Reg Keane MD at 03/09/2017 4:40 PM WSN:[id number]
[2017-03-09] MEDS ORDERED: NS(*) 0.9% 1000 ML BAG 1,000 ML IV ONE (16:55)
[2017-03-09 18:09] VITALS: BP 160/71
[2017-03-09] MEDS ORDERED: ACETAMINOPHEN(*)1000 MG/100 ML 100 ML IVPB PRN (21:00)
[2017-03-09] MEDS ORDERED: INFLUENZA VIRUS VAC 0.5 ML SYR IM ONLY ONE (21:00)
[2017-03-09] MEDS ORDERED: PROMETHAZINE 25 MG/ML 1 ML AMP IVP PRN (21:00)
[2017-03-09] MEDS ORDERED: VANCOMYCIN(*) 1 GM VIAL 1 GM, VANCOMYCIN HCL 0.750 GM VIAL 0.75 GM in NS(*) 0.9% 500 ML... IVPB ONE (22:00)
[2017-03-09] MEDS: NS(*) 0.9% 1000 ML BAG 1,000 ML IV PRN (22:12)
--- NOTE | 2017-03-09 22:17 | History & Physical ---
History of Present Illness History of Present Illness 76yo female with abdominal carcinomatosis, atrial fibrillation, chronic pain who was sent to the ER from her PCP for AMS. The patient last received chemotherapy 12 days ago. For the last 8-9 days, she has been more weak, such that she has difficulty helping with transitions. She was in the ER about 8 days ago and they diagnosed a UTI and started her on Macrobid. She progressively weakened and having more difficulty swallowing. She was in the ER 3 days ago, and was started on clotrimazole troches for concern of thrush. Very little oral intake, but taking medications for the last couple of days. The family has had some concern that she is swallowing well. She has been having more pain with rolling in bed, specifically in her left shoulder. There has been no trauma. She has an intermittent cough for many days to weeks. No BM for about 4 days. Today, it was noted that her right 2nd MCP was erythematous and tender. She was seen at her PCP's office today, who noted that she more lethargic. She has an intermittent cough for many days to weeks. No BM for about 4 days. In the ER, she was given IVF. History Problems: (1) GERD (gastroesophageal reflux disease) Status: Chronic (2) CVA (cerebral infarction) Status: Chronic (3) Atrial fibrillation Status: Chronic (4) Depression Status: Chronic (5) Hypertension, benign Status: Chronic (6) Hypothyroidism Status: Chronic (7) Incontinence Onset Date: 11/07/2013 Status: Chronic (8) Chronic heart failure with normal ejection fraction Status: Chronic (9) Asthma with COPD Status: Chronic Home Meds Active Scripts Clotrimazole (CLOTRIMAZOLE) 10 Mg Troc, 10 MG MT 3-5 times daily Y for oral candidiasis, #30 Prov:CARLOTA CUNNINGHAM DO 03/07/17 Mirtazapine (MIRTAZAPINE) 15 Mg Tablet, 15 MG PO QHS, #90 TAB 1 Refill Prov:JOSHUA MCGILL APRN TELETYPESETTER MONITOR-C 02/26/17 Fluticasone/Salmeterol (ADVAIR 500-50 DISKUS) 1 Each Disk.w.dev, 1 EACH IH BID, #1 INHALER 11 Refills Prov:NORY MESA MD 02/23/17 Dextroamphetamine Sulfate (DEXTROAMPHETAMINE SULFATE) 5 Mg Tablet, 5 MG PO BID, #60 TAB Prov:JOSHUA MCGILL APRN 02/22/17 Oxcarbazepine (OXCARBAZEPINE) 150 Mg Tablet, 1 TAB PO BID for to stabilize mood. , #180 TAB 3 Refills Prov:JOSHUA MCGILL APRN 02/22/17 Diltiazem Hcl (DILTIAZEM 24HR ER) 120 Mg Cap.er.24h, 120 MG PO QHS, #30 TAB Prov:NORY MESA MD 02/16/17 Diltiazem Hcl (CARDIZEM CD) 180 Mg Cap.er.24h, 180 MG PO QAM, #30 CAP 1 Refill Prov:NORY MESA MD 02/16/17 Clonazepam (KLONOPIN) 0.5 Mg Tablet, 1 MG PO BID, #60 TAB Prov:NORY MESA MD 02/16/17 Metoprolol Tartrate (METOPROLOL TARTRATE) 50 Mg Tab, 1 TAB PO BID, #180 TAB 4 Refills Prov:NORY MESA MD 02/04/17 Dextroamphetamine Sulfate (DEXTROAMPHETAMINE SULFATE) 10 Mg Capsule.er, 10 MG PO QAM, #30 CAP 0 Refills Prov:NORY MESA MD 12/31/16 Promethazine Hcl (PROMETHAZINE HCL) 25 Mg Tablet, 25 MG PO PRN for Nausea, #30 TAB Max of 1 a day Prov:NORY MESA MD 12/19/16 Nitroglycerin (NITROSTAT) 0.4 Mg Subl, 1 TAB SL Q5MIN, #14 TAB[address]SL [address] 1 tab under tongue at the 1st sign of chest pain; repeat every 5 min. Prov:JOSHUA MCGILL APRN 11/20/16 Tramadol Hcl (TRAMADOL HCL ER) 100 Mg Tab.er.24h, 3 TAB PO QDAY, #90 TAB 5 Refills Prov:JOSHUA MCGILL APRN 11/13/16 Digoxin (DIGOXIN) 125 Mcg Tablet, 1 TAB PO DAILY for to control heart rate. , # 90 TAB 4 Refills Prov:NORY MESA MD 10/23/16 Esomeprazole Magnesium (NEXIUM) 40 Mg Capsule.dr, 1 CAP PO QDAY, #90 CAP 3 Refills Prov:NORY MESA MD 10/21/16 Gabapentin (GABAPENTIN) 300 Mg Capsule, 300 MG PO QHS, #30 CAPSULE 11 Refills Prov:NORY MESA MD 10/16/16 Levothyroxine Sodium (LEVOTHYROXINE SODIUM) 100 Mcg Tablet, 100 MCG PO QDAY, # 90 TAB 4 Refills Prov:TIKA SCHAEFFER DNP, [facility]- 10/14/16 Ciprofloxacin Hcl (CIPROFLOXACIN HCL) 250 Mg Tablet, 1 TAB PO QDAY, #90 TAB 3 Refills Prov:TIKA SCHAEFFER DNP, [facility]- 10/05/16 Tiotropium [place] (SPIRIVA) 18 Mcg/Cap Inh, 18 MCG INH QDAY, #1 INH 11 Refills Prov:NORY MESA MD 09/11/16 Glimepiride (GLIMEPIRIDE) 2 Mg Tablet, 1 TAB PO QDAY, #30 TAB 5 Refills Prov:NORY MESA MD 09/04/16 Escitalopram Oxalate (LEXAPRO) 20 Mg Tablet, 1.5 TAB PO QDAY, #90 TAB 3 Refills Prov:NORY MESA MD 07/29/16 Oxygen (OXYGEN) Inha, 3 L INH DIRECTED, #2 L Wear 3 L Nasal Canula during the day and continue same dose of oxgen at night. Pt. will need portable oxygen to leave the house. Prov:NORY MESA MD 03/13/16 Lachine-3 (FISH OIL 500 MG SOFTGEL) 500 Mg Cap, 1000 MG PO QDAY, #30 CAP Prov:YANELIS SO MD 02/27/15 Hypromellose (NATURAL BALANCE TEARS) 15 Ml Drop, 0 ML OU PRN Y for dry eyes, #1 BOTTLE Prov:YANELIS SO MD 02/27/15 Cyclosporine (RESTASIS) 1 Each Droperette, 1 EACH OU BID, #1 BOTTLE Prov:YANELIS SO MD 02/27/15 Reported Medications [Misolex] No Conflict Check 03/09/17 Acetaminophen (TYLENOL EXTRA STRENGTH) 500 Mg Tablet, 500 MG PO PRN, TAB 03/07/17 Polyethylene Glycol 3350 (MIRALAX) 17 Gm Powd.pack, 17 GM PO ONCE Y for BOWELS, PKT 03/07/17 Sennosides (SENNA) 8.6 Mg Tablet, 8.6 MG PO QPM 03/07/17 Lactobacillus Combination No.4 (PROBIOTIC) 1 Each Capsule, 1 EACH PO QAM, CAPSULE 03/07/17 Folic Acid (FOLIC ACID) 1 Mg Tablet, 1 MG PO QAM, TAB 03/07/17 Dexamethasone 4 Mg Tab (DEXAMETHASONE 4 MG TAB) 4 Mg Tab, 4 MG PO BID for BEFORE DURING AND AFTER CHEMO for 3 Days, TAB 03/07/17 Dabigatran Etexilate Mesylate (PRADAXA) 150 Mg Capsule, 150 MG PO BID, CAPSULE 02/02/17 Magnesium Oxide (MAGNESIUM OXIDE) 400 Mg Tablet, 400 MG PO BID 08/26/16 Vit A,C & E/Lutein/Minerals (OCUVITE TABLET) 1 Each Tablet, 1 TAB PO QDAY 04/22/16 Cholecalciferol (Vitamin D3) (VITAMIN D3) 2,000 Unit Capsule, 2000 UNIT PO QDAY , CAPSULE 09/28/15 Discontinued Scripts Nitrofurantoin Monohyd/M-Cryst (MACROBID 100 MG CAPSULE) 100 Mg Capsule, 100 MG PO BID, #12 CAPSULE Prov:SHAHZAD HERRERA PA-C 03/01/17 Clotrimazole/Betamethasone Dip (LOTRISONE CREAM) 15 Gm Cream..g., 0 TP BID for 14 Days, #1 TUBE Prov:NORY MESA MD 02/03/17 Albuterol Sulfate 0.083% (ALBUTEROL SULFATE 0.083%) 2.5 Mg/3 Ml Vial.neb, 2.5 MG INH Q4-6H Y for SHORTNESS OF BREATH, #20 VIAL Prov:GINA RENDON TELETYPESETTER MONITOR 11/11/16 Albuterol Sulfate 90 Mcg/Act (PROAIR HFA 90 MCG/ACT) 8.5 Gm Hfa.aer.ad, 2 PUFF IH Q4-6H, #1 INHALER 9 Refills Prov:NORY MESA MD 11/28/15 Allergies: Coded Allergies: tetanus toxoid, adsorbed (Verified Allergy, Severe, HIVES, 03/09/17) SHANNA Inhibitors (Verified Allergy, Mild, 03/09/17) Penicillins (Verified Allergy, Mild, SWELLING, 1/2/18) Sulfa (Sulfonamide Antibiotics) (Verified Allergy, Mild, RASH, 03/09/17) prednisone (Verified Allergy, Mild, Hallucinations, 03/09/17) modafinil (Verified Adverse Reaction, Severe, 03/09/17) Suicidal ideation Patient History: FH: CHF (congestive heart failure) MOTHER FH: breast cancer MOTHER MATERNAL GRANDMOTHER FH: dementia FATHER FHx: anemia FHx: anemia FHx: anemia Unobtainable due to patient's condition FATHER MOTHER MATERNAL GRANDMOTHER CHILD, Age:54 CHILD, Age:50 Valvular heart disease MOTHER Hx Smoking: No Smoking Status: Never Smoker Exposure to Second Hand Smoke?: No Caffeine Intake: Coffee, Soda Caffeine/Cups Per Day: "I consume a great deal of all three" Hx Alcohol Use: No Hx Substance Use Disorder: No (Used Darvocet for pain for 25 years) Social Drug Use: Never Social Drugs: Prescription Drugs Review of Systems All Systems Reviewed/Normal: Yes, Except as Noted Exam Vital Signs Vital Signs Date Time Temp Pulse Resp B/P (MAP) Pulse Ox O2 Delivery O2 Flow Rate FiO2 03/09/17 18:13 94 Nasal Cannula 4.0 03/09/17 18:09 99.2 79 20 160/71 (100) General Appearance: No Acute Distress, Other (Sleepy, but awakens easily) Neuro: No Gross deficits (but not talkative and not clear on the events of the day.) ENT: Moist Mucous Membranes (no white plaques) Cardiovascular: Regular Rate and Rhythm Respiratory: Clear to Auscultation GI: Other (mildly firm. Diffusely tender with palpation. Active BS.) Extremities: No Edema, Other (Right 2nd MCP with erythema, warmth, tenderness and swelling) Medical Decision Making Data Points Item Value Date Time Cyclosporine 1 ea 01/11/11 1915 (Restasis 0.05% BID/OU 01/19/11 0903 (Or Equiv)) White Blood Count 11.3 k/uL H 03/09/17 1225 White Blood Count 6.6 k/uL 03/06/17 2300 Hemoglobin 10.6 g/dL L 03/06/17 2300 Hemoglobin 10.3 g/dL L 03/09/17 1225 Platelet Count 139 K/uL L 03/06/17 2300 Platelet Count 187 K/uL 03/09/17 1225 Neutrophils (%) (Auto) 71.9 % 03/06/17 2300 Neutrophils (%) (Auto) 75.4 % H 03/09/17 1225 Arterial Blood pH 7.50 H 03/09/17 1403 Arterial Blood Partial Pressure CO2 33 mmHg 03/09/17 1403 Arterial Blood Partial Pressure O2 106 mmHg *H 03/09/17 1403 Arterial Blood HCO3 26 mmol/L 03/09/17 1403 Arterial Blood Oxygen Saturation 99 % 03/09/17 1403 Arterial Blood Base Excess 2.0 mmol/L 03/09/17 1403 Troponin I < 0.012 ng/ml 03/09/17 1348 Ammonia 15 UMOL/L 03/09/17 1348 Total Bilirubin 0.7 mg/dl 03/09/17 1225 Aspartate Amino Transf (AST/SGOT) 28 U/L 03/09/17 1225 Alanine Aminotransferase (ALT/SGPT) 33 U/L 03/09/17 1225 Alkaline Phosphatase 131 U/L H 03/09/17 1225 Creatinine 1.00 mg/dl 03/01/17 1710 Creatinine 1.10 mg/dl H 03/06/17 2300 Creatinine 0.90 mg/dl 02/25/17 1330 Creatinine 1.30 mg/dl H 03/09/17 1225 Urine RBC <1 /HPF 03/09/17 1600 Urine WBC 149 /HPF 03/09/17 1600 Urine Leukocyte Esterase Large H 03/09/17 1600 Urine Leukocyte Esterase Moderate H 03/01/17 1800 Urine RBC 1 /HPF 03/01/17 1800 Urine WBC 37 /HPF 03/01/17 1800 Urine Transitional Epithelial Cells Many /LPF H 03/09/17 1600 Urine Squamous Epithelial Cells None /LPF 03/09/17 1600 Urine Bacteria Many /HPF H 03/09/17 1600 Urine Mucus Few /HPF 03/09/17 1600 Urine Amphetamines Screen Positive 03/09/17 1600 Influenza Type A Antigen Negative 04/22/16 1128 Influenza Type B Antigen Negative 04/22/16 1128 EKG / Imaging Imaging CXR - 1. Cardiomegaly unchanged Subtle haziness over the inferolateral right thorax which could be related to developing airspace consolidation versus small right pleural effusion Head CT - No acute intracranial abnormality. Unchanged bilateral chronic lacunar infarcts and unchanged moderate chronic small vessel ischemic change. Assessment and Plan Problems: (1) Altered mental status, unspecified Status: Acute Assessment & Plan: Secondary to dehydration, UTI, and sedating medications. She has been progressively getting weaker, taking in littler fluids/food and more somnolent over the last week and a half. However, she has been given her usual medications. She was started on Macrobid and Clotrimazole troches on two different ER visits. Will hold her tramadol, Klonopin and Remeron. Will delay the dose of Gabapentin until tomorrow. She is getting hydrated. (2) UTI (urinary tract infection) Status: Acute Assessment & Plan: She grew Enterococcus Faecalis on 03/01, but has been growing it on 3 other cultures back to December. She seems to have failed Macrobid because on the catheter UA she has more WBC. Will treat with IV Vancomycin and Rocephin. Will give a dose of Vancomycin and now then check a random tomorrow because of the ARF. Blood cultures from the port and periphery have been done. Urine culture is pending. She has a catheter in place. (3) ARF (acute renal failure) Status: Acute Assessment & Plan: Secondary to dehydration. Hydrating with fluids. (4) Gout Status: Acute Assessment & Plan: Right second MCP. Will try methylprednisone IV. It might help the left shoulder pain, also. (5) Carcinomatosis Status: Chronic Assessment & Plan: Last chemotherapy was 12 days prior to admission with Avastin and Alimta. She received Neulasta and Dexamethasone around the time of chemotherapy. (6) Sore throat Status: Acute Assessment & Plan: She is reporting mouth pain, but it appears clear. Will change from the clotrimazole troches to Nystatin swish and spit. (7) Atrial fibrillation *Optional Permanent Comment*: With intermittent RVR Last Edited By: Nory Mesa MD on Jun 19, 2016 10:30 Status: Chronic Assessment & Plan: Rate controlled currently. Continue pradaxa, diltiazem and metoprolol. Will check a digoxin level. (8) Asthma with COPD Status: Chronic Assessment & Plan: Lungs clear. Continue Spiriva. (9) DM2 (diabetes mellitus, type 2) Status: Chronic Assessment & Plan: Hold glimepiride because of the ARF and use SSI. (10) Hypothyroidism Status: Chronic Assessment & Plan: Continue levothyroxine. (11) Narcolepsy Status: Chronic Assessment & Plan: Continue dextroamphetamine (12) Chronic heart failure with normal ejection fraction Status: Chronic Assessment & Plan: No evidence of exacerbation. Follow closely for fluid overload with the hydration. Copies to: SADIE ROMERO MD; NORY MESA MD Venous Thromboembolism Antithrombotics Is Pt On Any Antithrombotics?: Yes Exam Sepsis Risk: No Definite Risk VICTOR HUGO RUBI MD Mar 09, 2017 22:17
[2017-03-09] MEDS ORDERED: NS(*) 0.9% 500 ML BAG 500 ML ONE (22:19)
[2017-03-09] MEDS: DABIGATRAN ETEXILATE 75 MG CAP PO SCH (22:26)
[2017-03-09] MEDS: METOPROLOL TART 50 MG TAB PO SCH (22:26)
[2017-03-09] MEDS: NYSTATIN 5 ML UDCUP PO SCH (22:27)
[2017-03-09] MEDS: cycloSPORINE 0.05% EMUL 1 DROP OU SCH (22:30)
[2017-03-09] MEDS: DEXTROAMPHETAMINE 5 MG PO SCH (22:31)
[2017-03-09] MEDS: cefTRIAXone 2 GM VIAL IVP SCH (22:31)
[2017-03-09] MEDS: DILTIAZEM CD 120 MG CAPCR PO SCH (22:31)
[2017-03-10 02:14] VITALS: BP 147/59
[2017-03-10] MEDS: TIOTROPIUM BROM INH 18 MCG/CAP INH SCH (05:30)
[2017-03-10] MEDS: LEVOTHYROXINE SOD 0.1 MG TAB PO SCH (05:55)
--- NOTE | 2017-03-10 06:36 | EKG ---
FACILITY: [facility] PATIENT NAME: PEGGY LOZOYA : [id number] MR: [id number] V: [id number] EXAM DATE: ORDERING PHYSICIAN: VICTOR HUGO RUBI TECHNOLOGIST: KIMBERLYN Juarez Reason : ST DEPRESSION Blood Pressure : / mmHG Vent. Rate : 058 BPM Atrial Rate : 079 BPM P-R Int : 000 ms QRS Dur : 100 ms QT Int : 340 ms P-R-T Axes : 000 025 245 degrees QTc Int : 333 ms Atrial fibrillation with controlled ventricular response. ST and T wave abnormality, consider inferior ischemia or digitalis effect . Changes are less pronoun maurice that on ECG from 03/06/17 Abnormal ECG Confirmed by STUART DUMONT ([id number]) on 03/10/2017 8:31:51 AM Referred By: Confirmed By:STUART DUMONT
[2017-03-10 06:51] LABS: PLATELET COUNT, AUTOMATED 147 K/uL (150-450)
[2017-03-10 07:35] VITALS: BP 148/69
[2017-03-10] MEDS: DILTIAZEM CD 180 MG CAPCR PO SCH (08:38)
[2017-03-10] MEDS: DEXTROAMPHETAMINE 10 MG PO SCH (08:38)
[2017-03-10] MEDS: DEXTROAMPHETAMINE 5 MG PO SCH ×2 (08:38→21:39)
[2017-03-10] MEDS: METOPROLOL TART 50 MG TAB PO SCH ×2 (08:38→21:39)
[2017-03-10] MEDS: cycloSPORINE 0.05% EMUL 1 DROP OU SCH ×2 (08:39→21:41)
[2017-03-10] MEDS: NYSTATIN 100,000 U/GM PWD 15GM TP SCH ×2 (08:39→21:42)
[2017-03-10] MEDS: PANTOPRAZOLE SOD 40 MG IV VIAL IVP SCH (08:39)
[2017-03-10] MEDS: OXCARBAZEPINE 150 MG TABLET PO SCH ×2 (08:39→21:41)
[2017-03-10] MEDS: NYSTATIN 5 ML UDCUP PO SCH ×4 (08:39→21:39)
[2017-03-10] MEDS: DABIGATRAN ETEXILATE 75 MG CAP PO SCH ×2 (08:39→21:39)
[2017-03-10] MEDS: POLYETHYLENE GLYCOL 17 GM PKT PO SCH (08:43)
[2017-03-10] MEDS: FOLIC ACID 1 MG TAB PO SCH (10:24)
[2017-03-10 10:48] VITALS: BP 138/62
[2017-03-10] MEDS: NS(*) 0.9% 1000 ML BAG 1,000 ML IV PRN ×2 (11:35→22:57)
--- NOTE | 2017-03-10 12:13 | RADIOLOGY IMAGING REPORT ---
[place] [facility] [place] NAME: El Hastings : 1940 MR: [id number] V: [id number] EXAM DATE: ORDERING PHYSICIAN: AVTAR SO TECHNOLOGIST: Location: [facility] [place] Patient: El Hastings : 1940 Visit/Account:[id number] Date of Sevice: 03/10/2017 SHOULDER MIN 2 VIEWS LEFT Provided history: left shoulder pain Additional pertinent history: Possible fall Views obtained: 2 views COMPARISON STUDIES: Chest x-ray 03/06/17 FINDINGS: Acute osseous and soft tissue findings: None Chronic osseous and soft tissue findings: There is near complete loss of glenohumeral joint thicknes s. A large spur projects along the undersurface of the humeral head, unchanged. There is mild spurr ing about the AC joint. No abnormal calcification course of the cuff. Calcified lymph node noted left hilum. Visualized left lung otherwise clear. Lesions: None significant IMPRESSION: Stable chronic changes as noted. No acute bone or joint abnormality. Report Dictated By: Eddie Whitman MD at 03/10/2017 12:05 PM Report E-Signed By: Eddie Whitman MD at 03/10/2017 12:08 PM WSN:[id number]
[2017-03-10] MEDS ORDERED: BISACODYL 10 MG SUPP PR ONE (12:15)
[2017-03-10] MEDS: INSULIN HUM LISPRO 100 UN/ML 3 ML VIAL SUBQ PRN ×2 (12:29→17:15)
[2017-03-10] MEDS ORDERED: DEXT10CA2 PO (13:06)
--- NOTE | 2017-03-10 13:44 | Hospitalist Progress Note ---
Subjective Progress Notes Subjective She is awake and alert. She does c/o left shoulder pain. Physical Exam Vital Signs Date Time Temp Pulse Resp B/P (MAP) Pulse Ox O2 Delivery O2 Flow Rate FiO2 03/10/17 10:48 97.6 68 16 138/62 (87) 98 Nasal Cannula 4.0 Intake and Output 03/11/17 07:00 Intake Total 980 ml Balance 980 ml IV Total 980 ml General Appearance: Alert, Awake Cardiovascular: Other (Irregular) Respiratory: Other (fairly clear) GI: Soft and Non-Tender Extremities: Warm, Perfused, Other (very limited ROM left shoulder with significant pain with testing ROM/possible small effusion/no callor or erythema) Integumentary: Generalized Fragile Skin Result Diagram: 03/10/1761903/10/17619 Assessment and Plan Problems: (1) Altered mental status, unspecified Status: Acute Assessment & Plan: Secondary to dehydration, UTI, and sedating medications. She has been progressively getting weaker, taking in less fluids/food and more somnolent over the last week and a half. However, she has been given her usual medications. She was started on Macrobid and Clotrimazole troches on two different ER visits. We have started her on IV Rocephin. Will continue to hold her tramadol, Klonopin and Remeron for now. Continue IV fluids. (2) UTI (urinary tract infection) Status: Acute Assessment & Plan: She grew Enterococcus faecalis on 03/01, but has also been growing it on 3 other cultures back to December 2016. She seems to have failed Macrobid. Will continue with IV Vancomycin and Rocephin. Blood cultures from the port and peripheral have been done. Urine culture is pending. She has a catheter in place. (3) ARF (acute renal failure) Status: Acute Assessment & Plan: Secondary to dehydration. Continue with IV fluids. (4) Gout Status: Acute Assessment & Plan: Right second MCP. Improved with IV steroids. It might help the left shoulder pain, also. (5) Carcinomatosis Status: Chronic Assessment & Plan: Last chemotherapy was 12 days prior to admission with Avastin and Alimta. She received Neulasta and Dexamethasone around the time of chemotherapy. (6) Sore throat Status: Acute Assessment & Plan: Will continue Nystatin swish and spit. (7) Atrial fibrillation *Optional Permanent Comment*: With intermittent RVR Last Edited By: Nory Mesa MD on Jun 19, 2016 10:30 Status: Chronic Assessment & Plan: Rate controlled currently. Continue pradaxa, diltiazem and metoprolol. Digoxin level 1.2. (8) Asthma with COPD Status: Chronic Assessment & Plan: Lungs clear. Continue Spiriva. (9) DM2 (diabetes mellitus, type 2) Status: Chronic Assessment & Plan: Hold glimepiride and use SSI. (10) Hypothyroidism Status: Chronic Assessment & Plan: Continue levothyroxine. (11) Narcolepsy Status: Chronic Assessment & Plan: Continue dextroamphetamine (12) Chronic heart failure with normal ejection fraction Status: Chronic Assessment & Plan: No evidence of exacerbation. Follow closely for fluid overload with the hydration. Exam Sepsis Risk: No Definite Risk AVTAR SO MD Mar 10, 2017 13:44
[2017-03-10] MEDS: VANCOMYCIN IVPB SCH (14:13)
[2017-03-10] MEDS: [UNRECOGNIZED DRUG - OTHER] IVPB SCH (14:13)
[2017-03-10 15:08] VITALS: BP 141/60
[2017-03-10 15:50] VITALS: Ht 162.6 cm; Wt 75.3 kg
[2017-03-10 18:28] VITALS: BP 142/69
[2017-03-10] MEDS ORDERED: methylPREDNIS SUCC 125 MG/2ML IVP SCH (21:30)
[2017-03-10] MEDS: GABAPENTIN 300 MG CAP PO SCH (21:39)
[2017-03-10] MEDS: DILTIAZEM CD 120 MG CAPCR PO SCH (21:41)
[2017-03-10] MEDS: cefTRIAXone 2 GM VIAL IVP SCH (22:55)
[2017-03-11] MEDS: VANCOMYCIN IVPB SCH (02:24)
[2017-03-11] MEDS: [UNRECOGNIZED DRUG - OTHER] IVPB SCH (02:24)
[2017-03-11] MEDS ORDERED: methylPREDNIS SUCC 125 MG/2ML IVP SCH (05:00)
[2017-03-11] MEDS: TIOTROPIUM BROM INH 18 MCG/CAP INH SCH (05:37)
[2017-03-11] MEDS: LEVOTHYROXINE SOD 0.1 MG TAB PO SCH ×3 (06:15→07:17)
[2017-03-11 06:25] LABS: PLATELET COUNT, AUTOMATED 164 K/uL (150-450)
[2017-03-11 07:10] VITALS: BP 148/65
[2017-03-11] MEDS: POLYETHYLENE GLYCOL 17 GM PKT PO SCH (07:25)
[2017-03-11] MEDS: PANTOPRAZOLE SOD 40 MG IV VIAL IVP SCH (07:27)
[2017-03-11] MEDS: OXCARBAZEPINE 150 MG TABLET PO SCH ×2 (07:28→20:53)
[2017-03-11] MEDS: DEXTROAMPHETAMINE 5 MG PO SCH ×2 (07:29→20:54)
[2017-03-11] MEDS: DEXTROAMPHETAMINE 10 MG PO SCH (07:29)
[2017-03-11] MEDS: FOLIC ACID 1 MG TAB PO SCH (07:29)
[2017-03-11] MEDS: cycloSPORINE 0.05% EMUL 1 DROP OU SCH ×2 (07:29→20:52)
[2017-03-11] MEDS: DABIGATRAN ETEXILATE 75 MG CAP PO SCH ×2 (07:29→20:52)
[2017-03-11] MEDS: METOPROLOL TART 50 MG TAB PO SCH ×2 (07:29→20:52)
[2017-03-11] MEDS: NYSTATIN 5 ML UDCUP PO SCH ×4 (07:29→20:54)
[2017-03-11] MEDS: DILTIAZEM CD 180 MG CAPCR PO SCH (07:29)
[2017-03-11] MEDS: NYSTATIN 100,000 U/GM PWD 15GM TP SCH ×2 (07:32→20:51)
[2017-03-11] MEDS: INSULIN HUM LISPRO 100 UN/ML 3 ML VIAL SUBQ PRN ×4 (08:00→20:55)
[2017-03-11 10:48] VITALS: BP 143/55
--- NOTE | 2017-03-11 11:32 | Hospitalist Progress Note ---
Subjective Progress Notes Subjective She is more alert and interactive. She denies any pain and has no concerns. Eating well this morning and slept well last night. Physical Exam Vital Signs Date Time Temp Pulse Resp B/P (MAP) Pulse Ox O2 Delivery O2 Flow Rate FiO2 03/11/17 10:48 97.8 72 16 143/55 (84) 97 Nasal Cannula 4.0 Intake and Output 03/12/17 07:00 Intake Total 1872 ml Balance 1872 ml Intake Oral 120 ml IV Total 1752 ml General Appearance: Alert, Awake, No Acute Distress Result Diagram: 03/11/1752303/11/17523 Assessment and Plan Problems: (1) Altered mental status, unspecified Status: Acute Assessment & Plan: Secondary to dehydration, UTI, and sedating medications. She has been progressively getting weaker, taking in less fluids/food and more somnolent over the last week and a half prior to admission. However, she had been given her usual medications. Today, she is much improved. Will continue to hold her tramadol, Klonopin and Remeron for now. Stop IV fluids (2) UTI (urinary tract infection) Status: Acute Assessment & Plan: She grew Enterococcus faecalis on 03/01, but has also been growing it on 3 other cultures back to December 2016. She seems to have failed Macrobid. Will continue with IV Vancomycin and Rocephin. Blood cultures from the port and peripheral have been done. Urine culture is pending. She has a catheter in place. (3) ARF (acute renal failure) Status: Acute Assessment & Plan: Secondary to dehydration. Better with fluids, and will saline lock today. (4) Gout Status: Resolved Assessment & Plan: Right second MCP. Improved with IV steroids. Will stop steroids. Still having left shoulder pain which doesn't appear to be gout related and more from arthritis by the Xray. (5) Carcinomatosis Status: Chronic Assessment & Plan: Last chemotherapy was 12 days prior to admission. She received Neulasta and Dexamethasone around the time of chemotherapy. (6) Sore throat Status: Acute Assessment & Plan: Will continue Nystatin swish and spit. (7) Atrial fibrillation *Optional Permanent Comment*: With intermittent RVR Last Edited By: Nory Mesa MD on Jun 19, 2016 10:30 Status: Chronic Assessment & Plan: Rate controlled currently. Continue pradaxa, diltiazem and metoprolol. Digoxin level 1.2. (8) Asthma with COPD Status: Chronic Assessment & Plan: Lungs clear. Continue Spiriva. (9) DM2 (diabetes mellitus, type 2) Status: Chronic Assessment & Plan: Glimepiride held, but will restart. Continue SSI. (10) Hypothyroidism Status: Chronic Assessment & Plan: Continue levothyroxine. (11) Narcolepsy Status: Chronic Assessment & Plan: Continue dextroamphetamine (12) Chronic heart failure with normal ejection fraction Status: Chronic Assessment & Plan: No evidence of exacerbation. Follow closely for fluid overload with the hydration. Exam Sepsis Risk: No Definite Risk VICTOR HUGO RUBI MD Mar 11, 2017 11:32
[2017-03-11] MEDS: GLIMEPIRIDE 2 MG TAB PO SCH (12:07)
[2017-03-11 15:04] VITALS: BP 149/73
--- NOTE | 2017-03-11 16:56 | Medical Nutrition Therapy ---
Nutrition Anthropometrics Height (Inches): 64.00 Height (Calculated Centimeters: 162.141074 Weight (Pounds): 166 Weight (Calculated Kilograms): 75.523 BMI Calculated: 28.49 Ryan Nutrition Score: Probably Inadequate Ryan Nutrition Risk Score: 14 Dietary Referral Nutrition Risk Factors: Diff. Swallowing Nutrition Risk Comment: Pt has stage 4 cancer and is on chemotherapy Physical Findings Physical Appearance: Overweight BMI 25-29 Skin Appearance Skin Appearance: Edema Edema Location Modifier: Both Edema Location: Lower Extremity Type of Edema: Degree of Edema: Gastrointestinal Symptoms GI Symtoms: Tube Present: Bowel Sounds: Recent Bowel Pattern: Stool Characteristics: Nutritional Diagnosis Nutritional Risk Acuity 1: Acute/ES Renal Nutritional Risk Acuity 2: Pr Appetite > 3d Nutritional Risk Acuity 3: Cancer Nutritional Risk Acuity 4: Good Appetite Past Medical History: breast cancer, chemo, UTI, GERD, CVA, depression, acute renal failure, gout, type 2 DM, HTN, hypothyroidism, CHF, COPD, a fib, abdominal carcinomatosis Nutritional Acuity: 1-High Nutrition Diagnosis: Increased Nutrient Needs Nutrition Etiology: Physiological Causes Nutrition Problem/Etiology/Sym: Increased fluid needs r/t acute renal failure secondary to dehydration AEB elevated Cr/BUN. Energy Requirement: 1580 ([place] Jeor) Protein Requirement: 75 (1 g/kg) Fluid Requirement: 2250 (30 ml/kg) Diet Type: Diabetic Nutrition Intervention: Cont diet as ordered, Encourage intake Diet Comment To [facility]: PLEASE OFFER DIABETIC NUTR SUPPLEMENT PLEASE PUT PROTEIN POWDER IN APPROPRIATE FOODS Nutrition Monitoring & Eval Nutrition Goals: Drink > 1500 cc/day RD Patient Assessment Time: [address] Assessment Type: RD Assessment Patient Nutrition Acuity: 1-High Follow Up Date: Mar 12, 2017 Nutritional Comment: 03/10 Pt admitted for AMS and UTI. Pt has acute renal failure secondary to dehydration. Family reports little intake over last few days. Last chemotherapy was 12 days ago. Pt had 25% of clear liquids at breakfast. Upgraded to diabetic diet. Notable labs include low H/H, alb 2.6, total pro 5.3, elevated BUN/CR. Will provide diabetic nutrition supplement and encourage food/fluid intake. / Pt continues on ADA diet with 100% intake over last 2 meals. Pt also had 100% of a sugar free health shake at breakfast. Total pro 5.7 and alb 2.8, both improving. Bun/Cr WNL. Pt is more alert and eating with this morning, per hospitalist note. Will continue to encourage intake of food and fluids. WISAM BONILLA Mar 11, 2017 13:24
[2017-03-11 18:31] VITALS: BP 172/87
[2017-03-11] MEDS: DILTIAZEM CD 120 MG CAPCR PO SCH (20:53)
[2017-03-11] MEDS: GABAPENTIN 300 MG CAP PO SCH (20:54)
[2017-03-11] MEDS: cefTRIAXone 2 GM VIAL IVP SCH (23:15)
[2017-03-11 23:39] VITALS: BP 164/72
[2017-03-12] MEDS: TIOTROPIUM BROM INH 18 MCG/CAP INH SCH (06:05)
[2017-03-12] MEDS: LEVOTHYROXINE SOD 0.1 MG TAB PO SCH (06:13)
[2017-03-12 06:24] LABS: PLATELET COUNT, AUTOMATED 186 K/uL (150-450)
[2017-03-12 07:30] VITALS: BP 161/62
[2017-03-12] MEDS: PANTOPRAZOLE SOD 40 MG TABEC PO SCH (09:12)
[2017-03-12] MEDS: NYSTATIN 5 ML UDCUP PO SCH ×4 (09:12→21:11)
[2017-03-12] MEDS: METOPROLOL TART 50 MG TAB PO SCH ×2 (09:12→21:10)
[2017-03-12] MEDS: GLIMEPIRIDE 2 MG TAB PO SCH (09:12)
[2017-03-12] MEDS: OXCARBAZEPINE 150 MG TABLET PO SCH ×2 (09:12→21:10)
[2017-03-12] MEDS: POLYETHYLENE GLYCOL 17 GM PKT PO SCH (09:12)
[2017-03-12] MEDS: DABIGATRAN ETEXILATE 75 MG CAP PO SCH ×2 (09:12→21:11)
[2017-03-12] MEDS: NYSTATIN 100,000 U/GM PWD 15GM TP SCH ×2 (09:12→21:11)
[2017-03-12] MEDS: cycloSPORINE 0.05% EMUL 1 DROP OU SCH ×2 (09:12→21:11)
[2017-03-12] MEDS: FOLIC ACID 1 MG TAB PO SCH (09:12)
[2017-03-12] MEDS: DILTIAZEM CD 180 MG CAPCR PO SCH (09:12)
[2017-03-12] MEDS: INSULIN HUM LISPRO 100 UN/ML 3 ML VIAL SUBQ PRN ×3 (09:14→21:24)
[2017-03-12] MEDS: DEXTROAMPHETAMINE 5 MG PO SCH ×2 (09:18→21:10)
[2017-03-12] MEDS: DEXTROAMPHETAMINE 10 MG PO SCH (09:19)
--- NOTE | 2017-03-12 10:41 | Hospitalist Depart ---
Discharge Summary Reason for Hosp/Final Diag: (1) Altered mental status, unspecified Status: Acute Hospital Course & Plan: Secondary to dehydration, UTI, and sedating medications. We have discontinued several of her psychotropic medications. (2) UTI (urinary tract infection) Status: Acute Hospital Course & Plan: She grew Enterococcus faecalis on 03/01, but has also been growing it on 3 other cultures back to December 2016. We did treat her with ceftriaxone and vancomycin. Her last vancomycin trough was 18, and we suspect that this will maintain her levels through a full course of treatment. She will require a repeat urine culture at her follow up visit in the cancer center. (3) ARF (acute renal failure) Status: Acute Hospital Course & Plan: Resolved with IV fluids. (4) Gout Status: Resolved Hospital Course & Plan: She did have a flair of gout in her right 2nd metacarpal phalangeal joint. It resolved with a dose of IV steroids. (5) Carcinomatosis Status: Chronic Hospital Course & Plan: Last chemotherapy was 12 days prior to admission. She received Neulasta and Dexamethasone around the time of chemotherapy. (6) Sore throat Status: Acute Hospital Course & Plan: She was treated with nystatin. (7) Atrial fibrillation *Optional Permanent Comment*: With intermittent RVR Last Edited By: Nory Mesa MD on Jun 19, 2016 10:30 Status: Chronic Hospital Course & Plan: She is on chronic treatment with diltiazem, metoprolol , and Pradaxa. (8) Asthma with COPD Status: Chronic Hospital Course & Plan: She is on chronic treatment with Spiriva. (9) DM2 (diabetes mellitus, type 2) Status: Chronic Hospital Course & Plan: She is on chronic treatment with glimepiride. (10) Hypothyroidism Status: Chronic Hospital Course & Plan: She is on chronic treatment with levothyroxine. (11) Narcolepsy Status: Chronic Hospital Course & Plan: She is on chronic treatment with dextroamphetamine Departure Latest Vital Signs Vital Signs 03/12/17 07:30 Temp 98.3 Pulse 66 Resp 16 B/P (MAP) 161/62 (95) Pulse Ox 100 O2 Delivery Nasal Cannula O2 Flow Rate 4.0 Weight (Pounds): 166 Weight (Ounces): 8.0 Result Diagram: 03/12/17 0546 03/12/17 0546 Condition: Improved Discharge: Home Health PT/OT Follow Up For: PT Evaluation and Treat Home Health RN Follow Up For: Nursing Assessment Discharge Instructions Home Meds Active Scripts Dextroamphetamine Sulfate (DEXTROAMPHETAMINE SULFATE) 10 Mg Capsule.er, 10 MG PO QAM, #30 CAP 0 Refills Prov:NORY MESA MD 03/10/17 Clotrimazole (CLOTRIMAZOLE) 10 Mg Troc, 10 MG MT 3-5 times daily Y for oral candidiasis, #30 Prov:CARLOTA CUNNINGHAM DO 03/07/17 Dextroamphetamine Sulfate (DEXTROAMPHETAMINE SULFATE) 5 Mg Tablet, 5 MG PO BID, #60 TAB Prov:JOSHUA MCGILL APRN 02/22/17 Oxcarbazepine (OXCARBAZEPINE) 150 Mg Tablet, 1 TAB PO BID for to stabilize mood. , #180 TAB 3 Refills Prov:JOSHUA MCGILL APRN 02/22/17 Diltiazem Hcl (DILTIAZEM 24HR ER) 120 Mg Cap.er.24h, 120 MG PO QHS, #30 TAB Prov:NORY MESA MD 02/16/17 Diltiazem Hcl (CARDIZEM CD) 180 Mg Cap.er.24h, 180 MG PO QAM, #30 CAP 1 Refill Prov:NORY MESA MD 02/16/17 Metoprolol Tartrate (METOPROLOL TARTRATE) 50 Mg Tab, 1 TAB PO BID, #180 TAB 4 Refills Prov:NORY MESA MD 02/04/17 Nitroglycerin (NITROSTAT) 0.4 Mg Subl, 1 TAB SL Q5MIN, #14 TAB[address] 1 tab under tongue at the 1st sign of chest pain; repeat every 5 min. Prov:JOSHUA MCGILL APRN 11/20/16 Tramadol Hcl (TRAMADOL HCL ER) 100 Mg Tab.er.24h, 3 TAB PO QDAY, #90 TAB 5 Refills Prov:JOSHUA MCGILL APRN 11/13/16 Gabapentin (GABAPENTIN) 300 Mg Capsule, 300 MG PO QHS, #30 CAPSULE 11 Refills Prov:NORY MESA MD 10/16/16 Levothyroxine Sodium (LEVOTHYROXINE SODIUM) 100 Mcg Tablet, 100 MCG PO QDAY, # 90 TAB 4 Refills Prov:TIKA SCHAEFFER DNP, FINGERER-BC 10/14/16 Tiotropium [place] (SPIRIVA) 18 Mcg/Cap Inh, 18 MCG INH QDAY, #1 INH 11 Refills Prov:NORY MESA MD 09/11/16 Glimepiride (GLIMEPIRIDE) 2 Mg Tablet, 1 TAB PO QDAY, #30 TAB 5 Refills Prov:NORY MESA MD 09/04/16 Oxygen (OXYGEN) Inha, 3 L INH DIRECTED, #2 L Wear 3 L Nasal Canula during the day and continue same dose of oxgen at night. Pt. will need portable oxygen to leave the house. Prov:NORY MESA MD 03/13/16 [place]-3 (FISH OIL 500 MG SOFTGEL) 500 Mg Cap, 1000 MG PO QDAY, #30 CAP Prov:YANELIS SO MD 02/27/15 Hypromellose (NATURAL BALANCE TEARS) 15 Ml Drop, 0 ML OU PRN Y for dry eyes, #1 BOTTLE Prov:YANELIS SO MD 02/27/15 Cyclosporine (RESTASIS) 1 Each Droperette, 1 EACH OU BID, #1 BOTTLE Prov:YANELIS SO MD 02/27/15 Reported Medications Acetaminophen (TYLENOL EXTRA STRENGTH) 500 Mg Tablet, 500 MG PO PRN, TAB 03/07/17 Polyethylene Glycol 3350 (MIRALAX) 17 Gm Powd.pack, 17 GM PO ONCE Y for BOWELS, PKT 03/07/17 Sennosides (SENNA) 8.6 Mg Tablet, 8.6 MG PO QPM 03/07/17 Lactobacillus Combination No.4 (PROBIOTIC) 1 Each Capsule, 1 EACH PO QAM, CAPSULE 03/07/17 Folic Acid (FOLIC ACID) 1 Mg Tablet, 1 MG PO QAM, TAB 03/07/17 Dabigatran Etexilate Mesylate (PRADAXA) 150 Mg Capsule, 150 MG PO BID, CAPSULE 02/02/17 Vit A,C & E/Lutein/Minerals (OCUVITE TABLET) 1 Each Tablet, 1 TAB PO QDAY 04/22/16 Cholecalciferol (Vitamin D3) (VITAMIN D3) 2,000 Unit Capsule, 2000 UNIT PO QDAY , CAPSULE 09/28/15 Discontinued Reported Medications [Misolex] No Conflict Check 03/09/17 Dexamethasone 4 Mg Tab (DEXAMETHASONE 4 MG TAB) 4 Mg Tab, 4 MG PO BID for BEFORE DURING AND AFTER CHEMO for 3 Days, TAB 03/07/17 Magnesium Oxide (MAGNESIUM OXIDE) 400 Mg Tablet, 400 MG PO BID 08/26/16 Discontinued Scripts Mirtazapine (MIRTAZAPINE) 15 Mg Tablet, 15 MG PO QHS, #90 TAB 1 Refill Prov:JOSHUA MCGILL APRN FINGERER-C 02/26/17 Fluticasone/Salmeterol (ADVAIR 500-50 DISKUS) 1 Each Disk.w.dev, 1 EACH IH BID, #1 INHALER 11 Refills Prov:NORY MESA MD 02/23/17 Clonazepam (KLONOPIN) 0.5 Mg Tablet, 1 MG PO BID, #60 TAB Prov:NORY MESA MD 02/16/17 Promethazine Hcl (PROMETHAZINE HCL) 25 Mg Tablet, 25 MG PO PRN for Nausea, #30 TAB Max of 1 a day Prov:NORY MESA MD 12/19/16 Digoxin (DIGOXIN) 125 Mcg Tablet, 1 TAB PO DAILY for to control heart rate. , # 90 TAB 4 Refills Prov:NORY MESA MD 10/23/16 Esomeprazole Magnesium (NEXIUM) 40 Mg Capsule.dr, 1 CAP PO QDAY, #90 CAP 3 Refills Prov:NORY MESA MD 10/21/16 Ciprofloxacin Hcl (CIPROFLOXACIN HCL) 250 Mg Tablet, 1 TAB PO QDAY, #90 TAB 3 Refills Prov:TIKA SCHAEFFER DNP, FINGERER-BC 10/05/16 Escitalopram Oxalate (LEXAPRO) 20 Mg Tablet, 1.5 TAB PO QDAY, #90 TAB 3 Refills Prov:NORY MESA MD 07/29/16 Nitrofurantoin Monohyd/M-Cryst (MACROBID 100 MG CAPSULE) 100 Mg Capsule, 100 MG PO BID, #12 CAPSULE Prov:SHAHZAD HERRERA PA-C 03/01/17 Clotrimazole/Betamethasone Dip (LOTRISONE CREAM) 15 Gm Cream..g., 0 TP BID for 14 Days, #1 TUBE Prov:NORY MESA MD 02/03/17 Albuterol Sulfate 0.083% (ALBUTEROL SULFATE 0.083%) 2.5 Mg/3 Ml Vial.neb, 2.5 MG INH Q4-6H Y for SHORTNESS OF BREATH, #20 VIAL Prov:GINA RENDON SUKHWINDER 11/11/16 Albuterol Sulfate 90 Mcg/Act (PROAIR HFA 90 MCG/ACT) 8.5 Gm Hfa.aer.ad, 2 PUFF IH Q4-6H, #1 INHALER 9 Refills Prov:NORY MESA MD 11/28/15 Diet: Diabetic Activity: As Tolerated Copies to: GREGORY ARMSTRONG FINGERER-BC, ONC Venous Thromboembolism Antithrombotics Is Pt On Any Antithrombotics?: Yes [id number] Certification Face to Face Home Health Certification [facility] Provider conducted the [id number] encounter. Electronic Undersigning Physician Certifies Home Health. I certify that the patient has been under my care and that I had a [id number] encounter that meets the physician [id number] encounter requirements with this patient. This patient is home-bound due to safety issues and continues to require assistance with ADL's. I certify that based on my findings, that Nursing, Aides and the following Home Health services are medically necessary: Medical Necessity: Nursing, Rehab Date Face to Face Conducted: Mar 12, 2017 YARELIS VAZ DO Mar 12, 2017 10:41
[2017-03-12 11:16] VITALS: BP 165/70
[2017-03-12] MEDS ORDERED: HEPARIN FLSH (PORT) 500 UN/5ML ONE (11:48)
[2017-03-12 14:15] VITALS: BP 144/57
[2017-03-12 19:33] VITALS: BP 151/63
[2017-03-12] MEDS: DILTIAZEM CD 120 MG CAPCR PO SCH (21:10)
[2017-03-12] MEDS: GABAPENTIN 300 MG CAP PO SCH (21:10)
[2017-03-13 03:41] VITALS: BP 153/51
[2017-03-13] MEDS: TIOTROPIUM BROM INH 18 MCG/CAP INH SCH (05:28)
[2017-03-13] MEDS: LEVOTHYROXINE SOD 0.1 MG TAB PO SCH (05:38)
--- NOTE | 2017-03-13 06:50 | Hospitalist Progress Note ---
Subjective Progress Notes Subjective This patient was scheduled for discharge yesterday, but it was delayed when the family decided that they would prefer to have her [facility] in a prison. She had no acute events overnight. Patient Complains of: Cardiovascular: No: Chest Pain Respiratory: No: Shortness of Breath Physical Exam Vital Signs Date Time Temp Pulse Resp B/P (MAP) Pulse Ox O2 Delivery O2 Flow Rate FiO2 03/13/17 05:28 74 16 03/13/17 03:41 97.5 153/51 (85) 96 Nasal Cannula 4.0 Cardiovascular: Regular Rate and Rhythm Respiratory: Clear to Auscultation Result Diagram: 03/12/17 0546 03/12/17 0546 Assessment and Plan Problems: (1) Altered mental status, unspecified Status: Acute Assessment & Plan: Secondary to dehydration, UTI, and sedating medications. We have discontinued several of her psychotropic medications. [facility] will [facility] the [facility] once arrangements have been made. (2) UTI (urinary tract infection) Status: Acute Assessment & Plan: She grew Enterococcus faecalis on 03/01, but has also been growing it on 3 other cultures back to December 2016. We did treat her with ceftriaxone and vancomycin. Her last vancomycin trough was 18, and we suspect that this will maintain her levels through a full course of treatment. She will require a repeat urine culture at her follow up visit in the cancer center. (3) ARF (acute renal failure) Status: Acute Assessment & Plan: Resolved with IV fluids. (4) Gout Status: Resolved Assessment & Plan: She did have a flair of gout in her right 2nd metacarpal phalangeal joint. It resolved with a dose of IV steroids. (5) Carcinomatosis Status: Chronic Assessment & Plan: Last chemotherapy was 12 days prior to admission. She received Neulasta and Dexamethasone around the time of chemotherapy. (6) Sore throat Status: Acute Assessment & Plan: She was treated with nystatin. (7) Atrial fibrillation *Optional Permanent Comment*: With intermittent RVR Last Edited By: Nory Mesa MD on Jun 19, 2016 10:30 Status: Chronic Assessment & Plan: She is on chronic treatment with diltiazem, metoprolol, and Pradaxa. (8) Asthma with COPD Status: Chronic Assessment & Plan: She is on chronic treatment with Spiriva. (9) DM2 (diabetes mellitus, type 2) Status: Chronic Assessment & Plan: She is on chronic treatment with glimepiride. (10) Hypothyroidism Status: Chronic Assessment & Plan: She is on chronic treatment with levothyroxine. (11) Narcolepsy Status: Chronic Assessment & Plan: She is on chronic treatment with dextroamphetamine Exam Sepsis Risk: No Definite Risk YARELIS VAZ DO Mar 13, 2017 06:50
[2017-03-13 09:02] VITALS: BP 152/61
[2017-03-13] MEDS: PANTOPRAZOLE SOD 40 MG TABEC PO SCH (10:06)
[2017-03-13] MEDS: METOPROLOL TART 50 MG TAB PO SCH ×2 (10:06→21:48)
[2017-03-13] MEDS: DILTIAZEM CD 180 MG CAPCR PO SCH (10:06)
[2017-03-13] MEDS: GLIMEPIRIDE 2 MG TAB PO SCH (10:06)
[2017-03-13] MEDS: FOLIC ACID 1 MG TAB PO SCH (10:07)
[2017-03-13] MEDS: POLYETHYLENE GLYCOL 17 GM PKT PO SCH (10:07)
[2017-03-13] MEDS: NYSTATIN 5 ML UDCUP PO SCH ×4 (10:07→21:39)
[2017-03-13] MEDS: cycloSPORINE 0.05% EMUL 1 DROP OU SCH ×2 (10:08→21:38)
[2017-03-13] MEDS: OXCARBAZEPINE 150 MG TABLET PO SCH ×2 (10:08→21:39)
[2017-03-13] MEDS: DABIGATRAN ETEXILATE 75 MG CAP PO SCH ×2 (10:08→21:37)
[2017-03-13] MEDS: NYSTATIN 100,000 U/GM PWD 15GM TP SCH ×2 (10:09→21:37)
[2017-03-13] MEDS: DEXTROAMPHETAMINE 10 MG PO SCH (10:12)
[2017-03-13] MEDS: DEXTROAMPHETAMINE 5 MG PO SCH ×2 (10:12→21:48)
--- NOTE | 2017-03-13 10:43 | Medical Nutrition Therapy ---
Nutrition Anthropometrics Height (Inches): 64.00 Height (Calculated Centimeters: 162.433175 Weight (Pounds): 166 Weight (Calculated Kilograms): 75.523 BMI Calculated: 28.49 Ryan Nutrition Score: Probably Inadequate Ryan Nutrition Risk Score: 14 Dietary Referral Nutrition Risk Factors: Diff. Swallowing Nutrition Risk Comment: Pt has stage 4 cancer and is on chemotherapy Physical Findings Physical Appearance: Overweight BMI 25-29 Skin Appearance Skin Appearance: Edema Edema Location Modifier: Both Edema Location: Lower Extremity Type of Edema: Degree of Edema: Gastrointestinal Symptoms GI Symtoms: Tube Present: Bowel Sounds: Recent Bowel Pattern: Stool Characteristics: Nutritional Diagnosis Nutritional Risk Acuity 1: Acute/ES Renal Nutritional Risk Acuity 2: Pr Appetite > 3d Nutritional Risk Acuity 3: Cancer Nutritional Risk Acuity 4: Good Appetite Past Medical History: breast cancer, chemo, UTI, GERD, CVA, depression, acute renal failure, gout, type 2 DM, HTN, hypothyroidism, CHF, COPD, a fib, abdominal carcinomatosis Nutritional Acuity: 1-High Nutrition Diagnosis: Increased Nutrient Needs Nutrition Etiology: Physiological Causes Nutrition Problem/Etiology/Sym: Increased fluid needs r/t acute renal failure secondary to dehydration AEB elevated Cr/BUN. Energy Requirement: 1580 ([place] St Jeor) Protein Requirement: 75 (1 g/kg) Fluid Requirement: 2250 (30 ml/kg) Diet Type: Diabetic Nutrition Intervention: Cont diet as ordered, Encourage intake Diet Comment To RSA: PLEASE OFFER DIABETIC NUTR SUPPLEMENT PLEASE PUT PROTEIN POWDER IN APPROPRIATE FOODS Nutrition Monitoring & Eval Nutrition Goals: Eat 75-100% Meal RD Patient Assessment Time: [address] Assessment Type: RD Assessment Patient Nutrition Acuity: 1-High Follow Up Date: Mar 16, 2017 Nutritional Comment: / Pt admitted for AMS and UTI. Pt has acute renal failure secondary to dehydration. Family reports little intake over last few days. Last chemotherapy was 12 days ago. Pt had 25% of clear liquids at breakfast. Upgraded to diabetic diet. Notable labs include low H/H, alb 2.6, total pro 5.3, elevated BUN/CR. Will provide diabetic nutrition supplement and encourage food/fluid intake. / Pt continues on ADA diet with 100% intake over last 2 meals. Pt also had 100% of a sugar free health shake at breakfast. Total pro 5.7 and alb 2.8, both improving. Bun/Cr WNL. Pt is more alert and eating with this morning, per hospitalist note. Will continue to encourage intake of food and fluids. 03/13/17 Continues on diabetic diet with 100% consumption of meals. Glu 157, Low H/H. [facility] as family finalizes arrangements. Follow intake, labs, etc. DORI QUICK Mar 13, 2017 10:43
[2017-03-13] MEDS: INSULIN HUM LISPRO 100 UN/ML 3 ML VIAL SUBQ PRN (12:43)
[2017-03-13 15:01] VITALS: BP 169/61
[2017-03-13 19:51] VITALS: BP 164/67
[2017-03-13] MEDS: GABAPENTIN 300 MG CAP PO SCH (21:39)
[2017-03-13] MEDS: DILTIAZEM CD 120 MG CAPCR PO SCH (21:39)
[2017-03-13 23:50] VITALS: BP 141/77
[2017-03-14 04:10] VITALS: BP 174/69
[2017-03-14] MEDS: TIOTROPIUM BROM INH 18 MCG/CAP INH SCH (05:18)
[2017-03-14 06:11] LABS: PLATELET COUNT, AUTOMATED 290 K/uL (150-450)
[2017-03-14] MEDS: LEVOTHYROXINE SOD 0.1 MG TAB PO SCH (06:14)
[2017-03-14 07:40] VITALS: BP 175/79
[2017-03-14] MEDS: DEXTROAMPHETAMINE 5 MG PO SCH ×2 (08:47→21:00)
[2017-03-14] MEDS: NYSTATIN 5 ML UDCUP PO SCH ×4 (08:47→20:59)
[2017-03-14] MEDS: DEXTROAMPHETAMINE 10 MG PO SCH (08:47)
[2017-03-14] MEDS: METOPROLOL TART 50 MG TAB PO SCH ×2 (08:47→21:00)
[2017-03-14] MEDS: GLIMEPIRIDE 2 MG TAB PO SCH (08:47)
[2017-03-14] MEDS: PANTOPRAZOLE SOD 40 MG TABEC PO SCH (08:47)
[2017-03-14] MEDS: POLYETHYLENE GLYCOL 17 GM PKT PO SCH (08:47)
[2017-03-14] MEDS: FOLIC ACID 1 MG TAB PO SCH (08:47)
[2017-03-14] MEDS: DILTIAZEM CD 180 MG CAPCR PO SCH (08:47)
[2017-03-14] MEDS: cycloSPORINE 0.05% EMUL 1 DROP OU SCH ×2 (08:49→21:00)
[2017-03-14] MEDS: OXCARBAZEPINE 150 MG TABLET PO SCH ×2 (08:52→21:00)
[2017-03-14] MEDS: NYSTATIN 100,000 U/GM PWD 15GM TP SCH ×2 (08:52→21:05)
[2017-03-14] MEDS: DABIGATRAN ETEXILATE 75 MG CAP PO SCH ×2 (09:00→21:00)
[2017-03-14] MEDS: INSULIN HUM LISPRO 100 UN/ML 3 ML VIAL SUBQ PRN ×3 (12:23→17:28)
--- NOTE | 2017-03-14 13:21 | Hospitalist Progress Note ---
Subjective Progress Notes Subjective She is awake and alert. She denies any new problems. Physical Exam Vital Signs Date Time Temp Pulse Resp B/P (MAP) Pulse Ox O2 Delivery O2 Flow Rate FiO2 03/14/17 07:40 95 Nasal Cannula 4.0 03/14/17 07:40 98.5 78 16 175/79 (111) Intake and Output 03/15/17 07:01 Intake Total 300 ml Balance 300 ml Intake Oral 300 ml # Voids 2 # Bowel Movements 2 General Appearance: Alert, Awake Cardiovascular: Other (Irregular) Respiratory: Other (decreased effort, but fairly clear) GI: Soft and Non-Tender Extremities: Warm, Perfused Integumentary: Generalized Fragile Skin Result Diagram: 03/14/1759903/14/17599 Assessment and Plan Problems: (1) Altered mental status, unspecified Status: Acute Assessment & Plan: Secondary to dehydration, UTI, and sedating medications. We have discontinued several of her psychotropic medications. [facility] been made. (2) UTI (urinary tract infection) Status: Acute Assessment & Plan: She grew Enterococcus faecalis on 03/01, but has also been growing it on 3 other cultures back to December 2016. We did treat her with ceftriaxone and vancomycin. She will require a repeat UA and urine culture to make sure she has cleared. (3) ARF (acute renal failure) Status: Acute Assessment & Plan: Resolved with IV fluids. Creatinine is 1.2 today. (4) Gout Status: Resolved Assessment & Plan: She did have a flair of gout in her right 2nd metacarpal phalangeal joint. It resolved with a dose of IV steroids. (5) Carcinomatosis Status: Chronic Assessment & Plan: Last chemotherapy was 12 days prior to admission. She received Neulasta and Dexamethasone around the time of chemotherapy. (6) Sore throat Status: Acute Assessment & Plan: She was treated with nystatin. (7) Atrial fibrillation *Optional Permanent Comment*: With intermittent RVR Last Edited By: Nory Mesa MD on Jun 19, 2016 10:30 Status: Chronic Assessment & Plan: She is on chronic treatment with diltiazem, metoprolol, and Pradaxa. (8) Asthma with COPD Status: Chronic Assessment & Plan: She is on chronic treatment with Spiriva. (9) DM2 (diabetes mellitus, type 2) Status: Chronic Assessment & Plan: She is on chronic treatment with glimepiride. (10) Hypothyroidism Status: Chronic Assessment & Plan: She is on chronic treatment with levothyroxine. (11) Narcolepsy Status: Chronic Assessment & Plan: She is on chronic treatment with dextroamphetamine (12) ANEMIA, UNSPECIFIED Status: Chronic Assessment & Plan: Most likely due to her malignancy and chemotherapy. No evidence of overt blood loss. Exam Sepsis Risk: No Definite Risk AVTAR SO MD Mar 14, 2017 13:21
[2017-03-14 18:47] VITALS: BP 186/86
[2017-03-14] MEDS: GABAPENTIN 300 MG CAP PO SCH (21:00)
[2017-03-14] MEDS: DILTIAZEM CD 120 MG CAPCR PO SCH (21:00)
[2017-03-15 03:33] VITALS: BP 156/67
[2017-03-15] MEDS: TIOTROPIUM BROM INH 18 MCG/CAP INH SCH (05:31)
[2017-03-15] MEDS: LEVOTHYROXINE SOD 0.1 MG TAB PO SCH (06:17)
[2017-03-15 07:22] VITALS: BP 166/75
[2017-03-15] MEDS: INSULIN HUM LISPRO 100 UN/ML 3 ML VIAL SUBQ PRN ×2 (07:26→11:20)
[2017-03-15] MEDS: NYSTATIN 100,000 U/GM PWD 15GM TP SCH ×2 (09:06→20:42)
[2017-03-15] MEDS: POLYETHYLENE GLYCOL 17 GM PKT PO SCH (09:06)
[2017-03-15] MEDS: OXCARBAZEPINE 150 MG TABLET PO SCH ×2 (09:06→20:44)
[2017-03-15] MEDS: cycloSPORINE 0.05% EMUL 1 DROP OU SCH ×2 (09:06→20:43)
[2017-03-15] MEDS: METOPROLOL TART 50 MG TAB PO SCH ×2 (09:06→20:43)
[2017-03-15] MEDS: DABIGATRAN ETEXILATE 75 MG CAP PO SCH ×2 (09:06→20:44)
[2017-03-15] MEDS: GLIMEPIRIDE 2 MG TAB PO SCH (09:07)
[2017-03-15] MEDS: DEXTROAMPHETAMINE 10 MG PO SCH (09:07)
[2017-03-15] MEDS: NYSTATIN 5 ML UDCUP PO SCH ×4 (09:07→20:43)
[2017-03-15] MEDS: FOLIC ACID 1 MG TAB PO SCH (09:07)
[2017-03-15] MEDS: DILTIAZEM CD 180 MG CAPCR PO SCH (09:07)
[2017-03-15] MEDS: PANTOPRAZOLE SOD 40 MG TABEC PO SCH (09:07)
[2017-03-15] MEDS: DEXTROAMPHETAMINE 5 MG PO SCH ×2 (09:07→20:43)
--- NOTE | 2017-03-15 10:24 | Hospitalist Progress Note ---
Subjective Progress Notes Subjective This patient was admitted for urinary infection. She had no acute events overnight. Patient Complains of: Cardiovascular: No: Chest Pain Respiratory: No: Shortness of Breath Physical Exam Vital Signs Date Time Temp Pulse Resp B/P (MAP) Pulse Ox O2 Delivery O2 Flow Rate FiO2 03/15/17 07:29 97 Nasal Cannula 2.0 03/15/17 07:22 98.1 72 16 166/75 (105) Intake and Output 03/16/17 07:01 Intake Total 640 ml Balance 640 ml Intake Oral 640 ml # Voids 1 # Bowel Movements 1 Cardiovascular: Regular Rate and Rhythm Respiratory: Clear to Auscultation Result Diagram: 03/14/17 0600 03/14/17 0600 Item Value Date Time Urine Culture - Final Complete 03/09/17 1600 Cath Urine Enterococcus Faecalis (Grp D) Assessment and Plan Problems: (1) Altered mental status, unspecified Status: Acute Assessment & Plan: Secondary to dehydration, UTI, and sedating medications. We have discontinued several of her psychotropic medications. She will discharge to the [facility] once arrangements have been made. (2) UTI (urinary tract infection) Status: Acute Assessment & Plan: She grew Enterococcus faecalis on 03/01, but has also been growing it on 3 other cultures back to December 2016. We did treat her with ceftriaxone and vancomycin. A repeat urine culture is pending. Her antibiotics have been discontinued. (3) ARF (acute renal failure) Status: Acute Assessment & Plan: Resolved with IV fluids. Creatinine is 1.2 today. (4) Gout Status: Resolved Assessment & Plan: She did have a flair of gout in her right 2nd metacarpal phalangeal joint. It resolved with a dose of IV steroids. (5) Carcinomatosis Status: Chronic Assessment & Plan: Last chemotherapy was 12 days prior to admission. She received Neulasta and Dexamethasone around the time of chemotherapy. (6) Sore throat Status: Acute Assessment & Plan: She was treated with nystatin. (7) Atrial fibrillation *Optional Permanent Comment*: With intermittent RVR Last Edited By: Nory Mesa MD on Jun 19, 2016 10:30 Status: Chronic Assessment & Plan: She is on chronic treatment with diltiazem, metoprolol, and Pradaxa. (8) Asthma with COPD Status: Chronic Assessment & Plan: She is on chronic treatment with Spiriva. (9) DM2 (diabetes mellitus, type 2) Status: Chronic Assessment & Plan: She is on chronic treatment with glimepiride. (10) Hypothyroidism Status: Chronic Assessment & Plan: She is on chronic treatment with levothyroxine. (11) Narcolepsy Status: Chronic Assessment & Plan: She is on chronic treatment with dextroamphetamine (12) ANEMIA, UNSPECIFIED Status: Chronic Assessment & Plan: Most likely due to her malignancy and chemotherapy. No evidence of overt blood loss. Exam Sepsis Risk: No Definite Risk YARELIS VAZ DO Mar 15, 2017 10:24
[2017-03-15 11:02] VITALS: BP 149/84
[2017-03-15] MEDS: HYPROMELLOSE 0.4% LUB 15ML BTL OU PRN ×3 (12:54→23:00)
[2017-03-15 16:25] VITALS: BP 184/90
[2017-03-15 16:30] VITALS: BP 181/70
[2017-03-15 18:45] VITALS: BP 153/76
[2017-03-15] MEDS: GABAPENTIN 300 MG CAP PO SCH (20:43)
[2017-03-15] MEDS: DILTIAZEM CD 120 MG CAPCR PO SCH (20:43)
[2017-03-16] MEDS: TIOTROPIUM BROM INH 18 MCG/CAP INH SCH (05:28)
[2017-03-16] MEDS: LEVOTHYROXINE SOD 0.1 MG TAB PO SCH (05:47)
[2017-03-16 07:10] VITALS: BP 153/73
[2017-03-16] MEDS: HYPROMELLOSE 0.4% LUB 15ML BTL OU PRN ×2 (07:20→11:24)
[2017-03-16] MEDS: POLYETHYLENE GLYCOL 17 GM PKT PO SCH (09:00)
[2017-03-16] MEDS: OXCARBAZEPINE 150 MG TABLET PO SCH (09:25)
[2017-03-16] MEDS: DEXTROAMPHETAMINE 5 MG PO SCH (09:25)
[2017-03-16] MEDS: DILTIAZEM CD 180 MG CAPCR PO SCH (09:25)
[2017-03-16] MEDS: DEXTROAMPHETAMINE 10 MG PO SCH (09:25)
[2017-03-16] MEDS: NYSTATIN 5 ML UDCUP PO SCH ×2 (09:25→13:35)
[2017-03-16] MEDS: METOPROLOL TART 50 MG TAB PO SCH (09:25)
[2017-03-16] MEDS: GLIMEPIRIDE 2 MG TAB PO SCH (09:26)
[2017-03-16] MEDS: PANTOPRAZOLE SOD 40 MG TABEC PO SCH (09:26)
[2017-03-16] MEDS: NYSTATIN 100,000 U/GM PWD 15GM TP SCH (09:26)
[2017-03-16] MEDS: FOLIC ACID 1 MG TAB PO SCH (09:26)
[2017-03-16] MEDS: DABIGATRAN ETEXILATE 75 MG CAP PO SCH (09:26)
[2017-03-16] MEDS: cycloSPORINE 0.05% EMUL 1 DROP OU SCH (09:26)
[2017-03-16] MEDS: INSULIN HUM LISPRO 100 UN/ML 3 ML VIAL SUBQ PRN (11:21)
[2017-03-16 11:23] VITALS: BP 164/72
--- NOTE | 2017-03-16 12:31 | Hospitalist Progress Note ---
Subjective Progress Notes Subjective No concerns from the patient or staff. Physical Exam Vital Signs Date Time Temp Pulse Resp B/P (MAP) Pulse Ox O2 Delivery O2 Flow Rate FiO2 03/16/17 11:23 98.3 73 14 164/72 (102) 96 Nasal Cannula 2.0 Intake and Output 03/17/17 07:00 Intake Total 840 ml Balance 840 ml Intake Oral 840 ml # Voids 2 # Bowel Movements 2 General Appearance: Alert, Awake, No Acute Distress Result Diagram: 03/14/17 0600 03/14/17 0600 Item Value Date Time Blood Urea Nitrogen 21 mg/dl H 03/14/17 0600 Creatinine 1.20 mg/dl H 03/14/17 0600 Blood Urea Nitrogen 22 mg/dl H 03/12/17 0546 Creatinine 1.00 mg/dl 03/12/17 0546 Blood Urea Nitrogen 17 mg/dl 03/11/17 0524 Creatinine 0.90 mg/dl 03/11/17 0524 Troponin I < 0.012 ng/ml 03/10/17 0620 Blood Urea Nitrogen 23 mg/dl H 03/10/17 0620 Creatinine 1.10 mg/dl H 03/10/17 0620 Urine Amphetamines Screen Positive 03/09/17 1600 Serum Alcohol < 10 mg/dl 03/09/17 1348 Urine Leukocyte Esterase Large H 03/09/17 1600 Urine Leukocyte Esterase Negative 03/14/17 2210 Urine RBC <1 /HPF 03/09/17 1600 Urine RBC 1 /HPF 03/14/17 2210 Urine WBC 149 /HPF 03/09/17 1600 Urine WBC <1 /HPF 03/14/17 2210 Urine Squamous Epithelial Cells Many /LPF H 03/14/17 2210 Urine Squamous Epithelial Cells None /LPF 03/09/17 1600 Urine Transitional Epithelial Cells Many /LPF H 03/09/17 1600 Urine Bacteria Many /HPF H 03/09/17 1600 Urine Bacteria Negative /HPF 03/14/17 2210 Urine Mucus None /HPF 03/14/17 2210 Urine Mucus Few /HPF 03/09/17 1600 Urine Blood Small 03/14/17 2210 Urine Blood Negative 03/09/17 1600 Urine Protein 30 mg/dL 03/09/17 1600 Urine Protein Negative mg/dL 03/14/17 2210 Arterial Blood pH 7.50 H 03/09/17 1403 Arterial Blood Partial Pressure CO2 33 mmHg 03/09/17 1403 Arterial Blood Partial Pressure O2 106 mmHg *H 03/09/17 1403 Arterial Blood HCO3 26 mmol/L 03/09/17 1403 Arterial Blood Oxygen Saturation 99 % 03/09/17 1403 Arterial Blood Base Excess 2.0 mmol/L 03/09/17 1403 Whole Blood Glucose 131 mg/DL H 03/16/17 0709 Whole Blood Glucose 143 mg/DL H 03/15/17 2043 Whole Blood Glucose 84 mg/DL 03/15/17 1623 Whole Blood Glucose 288 mg/DL H 03/15/17 1119 Whole Blood Glucose 161 mg/DL H 03/15/17 0723 Assessment and Plan Problems: (1) Altered mental status, unspecified Status: Resolved Assessment & Plan: Secondary to dehydration, UTI, and sedating medications. We have discontinued several of her psychotropic medications, given her hydration and treated the UTI. She will discharged to the [facility] today. (2) UTI (urinary tract infection) Status: Resolved Assessment & Plan: She grew Enterococcus faecalis on 03/01, but has also been growing it on 3 other cultures back to December 2016. We did treat her with ceftriaxone and vancomycin until 03/11. A repeat urine culture from 03/14 has no growth to date. (3) CKD (chronic kidney disease) stage 3, GFR 30-59 ml/min Status: Chronic Assessment & Plan: Creatinine was 1.1 on admission and then as low as 0.9. On 03/14, it was 1.2. She will need a BMP on 03/18. (4) Carcinomatosis Status: Chronic Assessment & Plan: Last chemotherapy was 12 days prior to admission. She received Neulasta and Dexamethasone around the time of chemotherapy. (5) Sore throat Status: Acute Assessment & Plan: She was treated with nystatin. (6) Atrial fibrillation *Optional Permanent Comment*: With intermittent RVR Last Edited By: Nory Vázquez MD on Jun 19, 2016 10:30 Status: Chronic Assessment & Plan: She is on chronic treatment with diltiazem, metoprolol, and Pradaxa. (7) ANEMIA, UNSPECIFIED Status: Chronic Assessment & Plan: Most likely due to her malignancy and chemotherapy. No evidence of overt blood loss. CBC on 03/18. (8) Asthma with COPD Status: Chronic Assessment & Plan: She is on chronic treatment with Spiriva. (9) DM2 (diabetes mellitus, type 2) Status: Chronic Assessment & Plan: She is on chronic treatment with glimepiride. (10) Hypothyroidism Status: Chronic Assessment & Plan: She is on chronic treatment with levothyroxine. (11) Narcolepsy Status: Chronic Assessment & Plan: She is on chronic treatment with dextroamphetamine (12) Gout Status: Resolved Assessment & Plan: She did have a flair of gout in her right 2nd metacarpal phalangeal joint. It resolved with a dose of IV steroids. Copies to: AJ HERRERA MD; NORY VÁZQUEZ MD Exam Sepsis Risk: No Definite Risk VICTOR HUGO RUBI MD Mar 16, 2017 12:31
--- NOTE | 2017-03-17 10:06 | Medical Nutrition Therapy ---
Nutrition Anthropometrics Height (Inches): 64.00 Height (Calculated Centimeters: 162.632422 Weight (Pounds): 166 Weight (Calculated Kilograms): 75.523 BMI Calculated: 28.49 Ryan Nutrition Score: Adequate Ryan Nutrition Risk Score: 15 Dietary Referral Nutrition Risk Factors: Diff. Swallowing Nutrition Risk Comment: Pt has stage 4 cancer and is on chemotherapy Physical Findings Physical Appearance: Overweight BMI 25-29 Skin Appearance Skin Appearance: Edema Edema Location Modifier: Both Edema Location: Generalized Type of Edema: Degree of Edema: Gastrointestinal Symptoms GI Symtoms: Tube Present: Bowel Sounds: Recent Bowel Pattern: Stool Characteristics: Nutritional Diagnosis Nutritional Risk Acuity 1: Acute/ES Renal Nutritional Risk Acuity 2: Pr Appetite > 3d Nutritional Risk Acuity 3: Cancer Nutritional Risk Acuity 4: Good Appetite Past Medical History: breast cancer, chemo, UTI, GERD, CVA, depression, acute renal failure, gout, type 2 DM, HTN, hypothyroidism, CHF, COPD, a fib, abdominal carcinomatosis Nutritional Acuity: 1-High Nutrition Diagnosis: Increased Nutrient Needs Nutrition Etiology: Physiological Causes Nutrition Problem/Etiology/Sym: Increased fluid needs r/t acute renal failure secondary to dehydration AEB elevated Cr/BUN. Energy Requirement: 1580 ([place] St Jeor) Protein Requirement: 75 (1 g/kg) Fluid Requirement: 2250 (30 ml/kg) Diet Type: Diabetic Nutrition Intervention: Cont diet as ordered, Encourage intake Diet Comment To RSA: PLEASE OFFER DIABETIC NUTR SUPPLEMENT PLEASE PUT PROTEIN POWDER IN APPROPRIATE FOODS Nutrition Monitoring & Eval Nutrition Goals: Eat 75-100% Meal Nutrition Follow-Up: Good Intake RD Patient Assessment Time: [address] Assessment Type: RD Re-Assessment Patient Nutrition Acuity: 1-High Follow Up Date: Mar 18, 2017 Nutritional Comment: 1/3 Pt admitted for AMS and UTI. Pt has acute renal failure secondary to dehydration. Family reports little intake over last few days. Last chemotherapy was 12 days ago. Pt had 25% of clear liquids at breakfast. Upgraded to diabetic diet. Notable labs include low H/H, alb 2.6, total pro 5.3, elevated BUN/CR. Will provide diabetic nutrition supplement and encourage food/fluid intake. / Pt continues on ADA diet with 100% intake over last 2 meals. Pt also had 100% of a sugar free health shake at breakfast. Total pro 5.7 and alb 2.8, both improving. Bun/Cr WNL. Pt is more alert and eating with this morning, per hospitalist note. Will continue to encourage intake of food and fluids. 03/13/17 Continues on diabetic diet with 100% consumption of meals. Glu 157, Low H/H. [facility] family finalizes arrangements. Follow intake, labs, etc. 03/16 Pt continues on diabetic diet averging 95% intake. Low H/H, Glu 131. Pt continues to await discharge to care center. Will continue to monitor. WISAM BONILLA Mar 16, 2017 08:59
[2017-03-19] MEDS ORDERED: DEXT5TAB PO (13:26)
[2017-03-19] MEDS ORDERED: DEXT10CA2 PO (13:26)
== END 2017-03-16 14:45 | disposition home or self-care (01) | DRG 690 ==
LOC: ER 13:44 → MED 17:19
PROVIDERS: ADMIT Internal Medicine; ATTEND Internal Medicine
DX: N39.0 Urinary tract infection, site not specified (principal); N17.9 Acute kidney failure, unspecified; I13.0 Hypertensive heart and chronic kidney disease with heart failure and stage 1 through stage 4 chronic kidney disease, or unspecified chronic kidney disease; C80.0 Disseminated malignant neoplasm, unspecified; I50.32 Chronic diastolic (congestive) heart failure; E86.0 Dehydration; B95.2 Enterococcus as the cause of diseases classified elsewhere; M1A.9XX0 Chronic gout, unspecified, without tophus (tophi); J02.9 Acute pharyngitis, unspecified; I48.0 Paroxysmal atrial fibrillation; J44.9 Chronic obstructive pulmonary disease, unspecified; E03.9 Hypothyroidism, unspecified; G47.419 Narcolepsy without cataplexy; K21.9 Gastro-esophageal reflux disease without esophagitis; F32.9 Major depressive disorder, single episode, unspecified; E11.22 Type 2 diabetes mellitus with diabetic chronic kidney disease; N18.3 Chronic kidney disease, stage 3 (moderate); F03.90 Unspecified dementia, unspecified severity, without behavioral disturbance, psychotic disturbance, mood disturbance, and anxiety; G47.30 Sleep apnea, unspecified; M81.0 Age-related osteoporosis without current pathological fracture; T43.025A Adverse effect of tetracyclic antidepressants, initial encounter; T42.4X5A Adverse effect of benzodiazepines, initial encounter; T40.4X5A Adverse effect of other synthetic narcotics, initial encounter; D63.0 Anemia in neoplastic disease; D64.81 Anemia due to antineoplastic chemotherapy; Z79.01 Long term (current) use of anticoagulants; Z86.73 Personal history of transient ischemic attack (TIA), and cerebral infarction without residual deficits; Z92.21 Personal history of antineoplastic chemotherapy; Z85.3 Personal history of malignant neoplasm of breast; Z86.718 Personal history of other venous thrombosis and embolism; Z90.49 Acquired absence of other specified parts of digestive tract; Z88.2 Allergy status to sulfonamides; Z88.8 Allergy status to other drugs, medicaments and biological substances; Z88.7 Allergy status to serum and vaccine; Z79.02 Long term (current) use of antithrombotics/antiplatelets; Z99.81 Dependence on supplemental oxygen; Z79.84 Long term (current) use of oral hypoglycemic drugs; Z88.0 Allergy status to penicillin
CPT/HCPCS: 36415; 36416; 36591; 36600; 70450; 71010; 71045; 80156; 80162; 80202; 80305; 80320; 81001; 82040; 82140; 82247; 82310; 82374; 82435; 82565; 82803; 82947; 82948; 83880; 84075; 84132; 84155; 84295; 84450; 84460; 84484; 84520; 85014; 85018; 85025; 87040; 87077; 87088; 87186; 93005; 94640; 96360; 97161; 97166; 99284; 99285; A4353; C9113; J0696; J1642; J2930; J3370; J3535; J7030; J7040; J7060

== ENCOUNTER 2017-03-16 10:29 | Outpatient (RCR) | payer MEDICARE, OTHER ==
[2017-03-10 15:50] VITALS: BMI 28.5
--- NOTE | 2017-03-16 10:25 | PT PLAN OF CARE ---
Physician: SUKHWINDER Inman Patient is being seen: 1x/MO~1/2x/Week depending on pt preference Therapist: Bárbara Engel, PT, DPT, CLT Medical Diagnosis: Ovarian Cancer Treatment Diagnosis: Ovarian Cancer, Generalized Weakness Date of Onset: 01/25/15 Date of Initial Evaluation: 11/12/16 Date patient was last seen: 02/04/17 Number of treatments: 3 Number of cancellations/No shows: 2 INTERVENTIONS: Manual Therapy/STM/MET Strengthening/condition Ice/Heat Range of Motion Spinal Stabilization Ultrasound Work Hardening/Cond Stretching Iontophoresis Neuromuscular Re-ed Closed Chain Program Electrical Stim Posture/Body mechanics Gait Trg/Balance Trg Biofeedback Home Exercise Program Mech./Manual Traction Therapeutic Activities Pelvic Floor GOALS: In 3 Months pt will be able to perform 3 sit<>stand transfers without use of B UE from regular chair height increase ability to perform transfers and ADL's and decrease caregiver burden. In progress In 3 Months pt will increase B LE strength to 4/5 or greater in all major muscle groups to increase ability to perform transfers and ADL's and decrease caregiver burden. In Progress In 3 Months pt will improve FACT-G score to > 45/108 indicating improved physical, emotional, functional, and social wellness. In 6 Months pt will improve FACT-G score to > 45/108 indicating improved physical, emotional, functional, and social wellness. PATIENT'S GOAL: Decrease pain and improve/maintain well-being Status of Patient's Goals: In Progress Patient Compliance: Poor Prognosis: Fair Reasons for discharge from therapy: Juanita is to discharge from outpatient physical therapy at this time secondary to recent hospitalization. At the time of discharge pt had poor compliance with treatment, but was starting to initiate more frequent outpatient PT visits to maintain activity and function despite decreased activity at home. Posture: Pt has forward trunk lean and constant flexed hips and rounded lumbar spine. Strength: LE MMT: Hip: flexion: L 4/5, R 3/5, ext: B 3+/5, abd/add: B 4/5. Knee : flexion: B 3+/5, ext: L 4/5, R 3+/5. Ankle: DF: L 4/5, R 3+/5, PF: B 2+/5. Mobility: Self propels W/C with feet around the house. No formal walking. Uses B UE for transfers from seated<>standing. Outcome Measures: FACT-G outcome measure not performed during this session secondary to time constraints with pt psychosocial status. ECOG Performance Status: 3-4 If you have any questions or concerns, please feel free to contact me at . Thanks, Bárbara Engel, PT, DPT, CLT MTDD
[~2017-03-16 10:29] MED LIST changes: +[UNRECOGNIZED DRUG - OTHER]
== END 2017-03-16 11:00 | disposition home or self-care (01) ==
LOC: PT 10:29
PROVIDERS: ATTEND Nurse Practitioner Family
DX: C56.9 Malignant neoplasm of unspecified ovary (principal); M62.81 Muscle weakness (generalized)

== ENCOUNTER → 2017-03-18 | Outpatient (REF) | payer MEDICARE, OTHER ==
[2017-03-10 15:50] VITALS: BMI 28.5
== END ==
LOC: ZZLCC 15:17
PROVIDERS: ATTEND Internal Medicine Hematology
DX: C80.0 Disseminated malignant neoplasm, unspecified (principal)
CPT/HCPCS: 82040; 82247; 82310; 82374; 82435; 82565; 82947; 84075; 84132; 84155; 84295; 84450; 84460; 84520; 85027

== ENCOUNTER → 2017-03-23 | Outpatient (REF) | payer MEDICARE, OTHER ==
[2017-03-10 15:50] VITALS: BMI 28.5
[2017-03-23 14:02] LABS: PLATELET COUNT, AUTOMATED 443 K/uL (150-450)
== END ==
LOC: ZZSENDIN 13:36
PROVIDERS: ATTEND Internal Medicine Hematology
DX: C56.9 Malignant neoplasm of unspecified ovary (principal)
CPT/HCPCS: 82040; 82247; 82310; 82374; 82435; 82565; 82947; 84075; 84132; 84155; 84295; 84450; 84460; 84520; 85025

== ENCOUNTER → 2017-03-30 | Outpatient (REF) | payer MEDICARE, OTHER ==
[2017-03-10 15:50] VITALS: BMI 28.5
[2017-03-30 13:24] LABS: PLATELET COUNT, AUTOMATED 308 K/uL (150-450)
== END ==
LOC: ZZLCC 12:55
PROVIDERS: ATTEND Internal Medicine Hematology
DX: C56.9 Malignant neoplasm of unspecified ovary (principal)
CPT/HCPCS: 82040; 82247; 82310; 82374; 82435; 82565; 82947; 84075; 84132; 84155; 84295; 84450; 84460; 84520; 85025

== ENCOUNTER → 2017-04-09 | Outpatient (REF) | payer MEDICARE, OTHER ==
[2017-03-10 15:50] VITALS: BMI 28.5
== END ==
LOC: ZZLCC 08:28
PROVIDERS: ATTEND Family Medicine
DX: C80.0 Disseminated malignant neoplasm, unspecified (principal)
CPT/HCPCS: 82040; 82247; 82310; 82374; 82435; 82565; 82947; 84075; 84132; 84155; 84295; 84450; 84460; 84520; 85027

== ENCOUNTER → 2017-04-10 | Outpatient (CLI) | payer MEDICARE, OTHER ==
[2017-03-10 15:50] VITALS: BMI 28.5
[~2017-04-10] MED LIST changes: -WARF-18 PO; +WARF5TAB23 PO
== END ==
LOC: AMB 10:05
PROVIDERS: ATTEND Nurse Practitioner
DX: R53.1 Weakness (principal)
CPT/HCPCS: A0425; A0428

== ENCOUNTER → 2017-04-10 | Outpatient (REF) | payer MEDICARE, OTHER ==
[2017-03-10 15:50] VITALS: BMI 28.5
[~2017-04-10] MED LIST changes: +WARF-18 PO; -WARF5TAB23 PO
== END ==
LOC: ZZSENDIN 10:03
PROVIDERS: ATTEND Family Medicine
DX: R71.0 Precipitous drop in hematocrit (principal); D64.9 Anemia, unspecified
CPT/HCPCS: 85014; 85018

== ENCOUNTER → 2017-04-10 | Outpatient (CLI) | payer MEDICARE, OTHER ==
[2017-03-10 15:50] VITALS: BMI 28.5
[~2017-04-10] MED LIST changes: -WARF-18 PO; +WARF5TAB23 PO
== END ==
LOC: AMB 12:04
PROVIDERS: ATTEND Nurse Practitioner
DX: R53.1 Weakness (principal)
CPT/HCPCS: A0425; A0428

== ENCOUNTER → 2017-04-14 | Outpatient (REF) | payer MEDICARE, OTHER ==
[2017-03-10 15:50] VITALS: BMI 28.5
[~2017-04-14] MED LIST changes: +WARF-18 PO; -WARF5TAB23 PO
[2017-04-14 08:02] LABS: PLATELET COUNT, AUTOMATED 173 K/uL (150-450)
== END ==
LOC: ZZSENDIN 07:32
PROVIDERS: ATTEND Family Medicine
DX: D64.9 Anemia, unspecified (principal); C80.0 Disseminated malignant neoplasm, unspecified; I63.9 Cerebral infarction, unspecified; I48.2 Chronic atrial fibrillation
CPT/HCPCS: 82040; 82247; 82310; 82374; 82435; 82565; 82947; 84075; 84132; 84155; 84295; 84450; 84460; 84520; 85025

== ENCOUNTER → 2017-04-16 | Outpatient (REF) | payer MEDICARE, OTHER ==
[2017-03-10 15:50] VITALS: BMI 28.5
[2017-04-16 08:28] LABS: PLATELET COUNT, AUTOMATED 211 K/uL (150-450)
== END ==
LOC: ZZLCC 08:16
PROVIDERS: ATTEND Internal Medicine Hematology
DX: C56.9 Malignant neoplasm of unspecified ovary (principal)
CPT/HCPCS: 82040; 82247; 82310; 82374; 82435; 82565; 82947; 84075; 84132; 84155; 84295; 84450; 84460; 84520; 85025

== ENCOUNTER → 2017-04-23 | Outpatient (REF) | payer MEDICARE, OTHER ==
[2017-03-10 15:50] VITALS: BMI 28.5
[~2017-04-23] MED LIST changes: -WARF-18 PO; +WARF5TAB23 PO
[2017-04-23 08:01] LABS: PLATELET COUNT, AUTOMATED 399 K/uL (150-450)
== END ==
LOC: ZZLCC 07:47
PROVIDERS: ATTEND Internal Medicine Hematology
DX: C56.9 Malignant neoplasm of unspecified ovary (principal)
CPT/HCPCS: 82040; 82247; 82310; 82374; 82435; 82565; 82947; 84075; 84132; 84155; 84295; 84450; 84460; 84520; 85025

== ENCOUNTER → 2017-04-30 | Outpatient (REF) | payer MEDICARE, OTHER ==
[2017-03-10 15:50] VITALS: BMI 28.5
[2017-04-30 10:37] LABS: PLATELET COUNT, AUTOMATED 259 K/uL (150-450)
== END ==
LOC: ZZLCC 10:27
PROVIDERS: ATTEND Internal Medicine Hematology
DX: C56.9 Malignant neoplasm of unspecified ovary (principal)
CPT/HCPCS: 82040; 82247; 82310; 82374; 82435; 82565; 82947; 84075; 84132; 84155; 84295; 84450; 84460; 84520; 85025

== ENCOUNTER 2017-05-06 13:56 | Observation (INO) | payer MEDICARE, OTHER ==
[~2017-05-06] VITALS: Ht 162.6 cm; Wt 74.2 kg
[2017-05-06] MEDS ORDERED: OMEP-137 PO (14:29)
[2017-05-06] MEDS ORDERED: RANI-324 PO (14:29)
[2017-05-06] MEDS ORDERED: PROM-110 PO (14:29)
--- NOTE | 2017-05-06 14:39 | ER Report ---
History and Physical Time Seen By MD: 14:39 Hx. of Stated Complaint: PT PRESENTS FROM [facility] WHERE SHE WAS TP HAVE A BLOOD DRAW. THEY WERE CONCERNED TO HER DECREASED MENTAL STATUS. PT HAS BEEN IN [facility] FOR SEVERAL WEEKS FOR REHAB, DID NOT LIKE IT AND WENT HOME 2 DAYS AGO. PT HAS FREQUENT UTI'S WITH SEPSIS. PT RECEIVING CHEMO FOR STAGE 4 OVARIAN CANCER HPI/ROS CHIEF COMPLAINT: altered mental status, and other complaints. HISTORY OF PRESENT ILLNESS: This is a 76 year old female. She was sent to the ER from the cancer center. She was at the cancer center to get blood drawn, however there was concern about her mental status being altered. She had been doing rehab at [facility] for several weeks, but was discharged home because she did not like it there. She was discharged a few days ago. She is receiving Chemo for stage 4 ovarian cancer. Report that she is not getting out of bed, for the last 3 days. She says that it singleton when she urinates and has a history of urinary tract infections. She has been having frequent bouts of diarrhea. She seems to be alert and oriented at this time, but reports from caregiver that this varies. El also states that she has been short of breath recently, saying it feels like her lungs are "filling up". Denies any abdominal pain at this time. No reported fevers, but she always feels cold. Has various musculoskeletal pain off and on. She has some heaviness in chest associated with the shortness of breath, but no pain there. REVIEW OF SYSTEMS: As above. Allergies: Coded Allergies: tetanus toxoid, adsorbed (Verified Allergy, Severe, HIVES, 03/09/17) SHANNA Inhibitors (Verified Allergy, Mild, 03/09/17) Penicillins (Verified Allergy, Mild, SWELLING, 03/09/17) Sulfa (Sulfonamide Antibiotics) (Verified Allergy, Mild, RASH, 03/09/17) prednisone (Verified Allergy, Mild, Hallucinations, 03/09/17) modafinil (Verified Adverse Reaction, Severe, 03/09/17) Suicidal ideation Home Meds Active Scripts Dexamethasone 4 Mg Tab (DEXAMETHASONE 4 MG TAB) 4 Mg Tab, 4 MG PO BID for before during and after chemo for 3 Days, #12 TAB 3 Refills Prov:AJ HERRERA MD 04/09/17 Dextroamphetamine Sulfate (DEXTROAMPHETAMINE SULFATE) 10 Mg Capsule.er, 10 MG PO QAM, #30 CAP 0 Refills Prov:AJ HERRERA MD 04/05/17 Dextroamphetamine Sulfate (DEXTROAMPHETAMINE SULFATE) 5 Mg Tablet, 5 MG PO BID, #60 TAB Prov:AJ HERRERA MD 04/05/17 Oxcarbazepine (OXCARBAZEPINE) 150 Mg Tablet, 1 TAB PO BID for to stabilize mood. , #180 TAB 3 Refills Prov:JOSHUA MCGILL APRN BATHHOUSE KEEPER-C 02/22/17 Diltiazem Hcl (DILTIAZEM 24HR ER) 120 Mg Cap.er.24h, 120 MG PO QHS, #30 TAB Prov:MANISHA VÁZQUEZ MD 02/16/17 Diltiazem Hcl (CARDIZEM CD) 180 Mg Cap.er.24h, 180 MG PO QAM, #30 CAP 1 Refill Prov:MANISHA VÁZQUEZ MD 02/16/17 Metoprolol Tartrate (METOPROLOL TARTRATE) 50 Mg Tab, 1 TAB PO BID, #180 TAB 4 Refills Prov:MANISHA VÁZQUEZ MD 02/04/17 Nitroglycerin (NITROSTAT) 0.4 Mg Subl, 1 TAB SL Q5MIN, #[address] 1 tab under tongue at the 1st sign of chest pain; repeat every 5 min. Prov:JOSHUA MCGILL APRN BATHHOUSE KEEPER-C 11/20/16 Gabapentin (GABAPENTIN) 300 Mg Capsule, 300 MG PO QHS, #30 CAPSULE 11 Refills Prov:MANISHA VÁZQUEZ MD 10/16/16 Levothyroxine Sodium (LEVOTHYROXINE SODIUM) 100 Mcg Tablet, 100 MCG PO QDAY, # 90 TAB 4 Refills Prov:TIKA SCHAEFFER DNP, BATHHOUSE KEEPER-BC 10/14/16 Tiotropium [place] (SPIRIVA) 18 Mcg/Cap Inh, 18 MCG INH QDAY, #1 INH 11 Refills Prov:MANISHA VÁZQUEZ MD 09/11/16 Glimepiride (GLIMEPIRIDE) 2 Mg Tablet, 1 TAB PO QDAY, #30 TAB 5 Refills Prov:MANISHA VÁZQUEZ MD 09/04/16 Oxygen (OXYGEN) Inha, 3 L INH DIRECTED, #2 L Wear 3 L Nasal Canula during the day and continue same dose of oxgen at night. Pt. will need portable oxygen to leave the house. Prov:MANISHA VÁZQUEZ MD 03/13/16 [place]-3 (FISH OIL 500 MG SOFTGEL) 500 Mg Cap, 1000 MG PO QDAY, #30 CAP Prov:YANELIS SO MD 02/27/15 Hypromellose (NATURAL BALANCE TEARS) 15 Ml Drop, 0 ML OU PRN Y for dry eyes, #1 BOTTLE Prov:YANELIS SO MD 02/27/15 Cyclosporine (RESTASIS) 1 Each Droperette, 1 EACH OU BID, #1 BOTTLE Prov:YANELIS SO MD 02/27/15 Reported Medications Promethazine Hcl (PROMETHAZINE HCL) 25 Mg Tablet, 25 MG PO Q8H, TAB 05/06/17 Omeprazole (OMEPRAZOLE) 20 Mg Tablet.dr, 20 MG PO BID, TAB 05/06/17 Ranitidine Hcl (ZANTAC) 150 Mg Tablet, 75 MG PO QDAY, TAB 05/06/17 Acetaminophen (TYLENOL EXTRA STRENGTH) 500 Mg Tablet, 500 MG PO PRN, TAB 03/07/17 Polyethylene Glycol 3350 (MIRALAX) 17 Gm Powd.pack, 17 GM PO ONCE Y for BOWELS, PKT 03/07/17 Sennosides (SENNA) 8.6 Mg Tablet, 8.6 MG PO QPM 03/07/17 Lactobacillus Combination No.4 (PROBIOTIC) 1 Each Capsule, 1 EACH PO QAM, CAPSULE 03/07/17 Folic Acid (FOLIC ACID) 1 Mg Tablet, 1 MG PO QAM, TAB 03/07/17 Dabigatran Etexilate Mesylate (PRADAXA) 150 Mg Capsule, 150 MG PO BID, CAPSULE 02/02/17 Vit A,C & E/Lutein/Minerals (OCUVITE TABLET) 1 Each Tablet, 1 TAB PO QDAY 04/22/16 Cholecalciferol (Vitamin D3) (VITAMIN D3) 2,000 Unit Capsule, 2000 UNIT PO QDAY , CAPSULE 09/28/15 Discontinued Scripts Clotrimazole (CLOTRIMAZOLE) 10 Mg Troc, 10 MG MT 3-5 times daily Y for oral candidiasis, #30 Prov:CARLOTA CUNNINGHAM DO 03/07/17 Reviewed Nurses Notes: Yes Hx Smoking: No Smoking Status: Never Smoker Exposure to Second Hand Smoke?: No Hx Substance Use Disorder: No (Used Darvocet for pain for 25 years) Hx Alcohol Use: No Constitutional Vital Sign - Last 24 Hours 05/06/17 05/06/17 05/06/17 05/06/17 14:19 14:19 14:26 14:30 Temp 98.4 Pulse 82 84 Resp 20 15 B/P (MAP) 135/71 (92) 135/71 123/54 (77) Pulse Ox 98 99 O2 Delivery Room Air 05/06/17 05/06/17 05/06/17 14:56 15:00 15:26 Pulse 87 B/P (MAP) 127/54 (78) Pulse Ox 99 97 Intake and Output 05/06/17 05/06/17 05/07/17 15:00 23:00 07:00 Output Total 20 ml Balance -20 ml Physical Exam General Appearance: The patient is alert. No acute distress. Eyes: Pupils are equal, round. No pallor, injection or icterus. ENT: Mucous membranes are dry. Otherwise unremarkable oral mucosa, and normal posterior oropharynx. Normal tympanic membranes and canals. Neck: Supple and non tender. No lymphadenopathy. Respiratory: Lungs diminished, no rales or wheezing. There are no retractions or accessory muscle use. Cardiovascular: Regular rate and rhythm. No murmurs, gallops or rubs. Normal capillary refill. Gastrointestinal: Abdomen is soft, diffuse discomfort, but without focal tenderness. Nondistended. Normal active bowel sounds. Neurological: Alert, oriented to person and place. Generalized weakness, does not appear focal. Skin: Warm and dry. Musculoskeletal: No tenderness in palpating the chest, neck, arms, back, or legs. DIFFERENTIAL DIAGNOSIS: After history and physical exam, differential diagnosis was considered for altered mental status including but not limited to hypoglycemia, infectious process, electrolyte abnormality, head injury and intoxicants. Medical Decision Making Data Points Laboratory Hematology Test 05/06/17 15:15 05/06/17 15:39 Lactate 1.4 mmol/L (0.7-2.1) Troponin I < 0.012 ng/ml C-Reactive Protein 7.4 mg/dl (<1.0) B-Type Natriuretic Peptide 562 pg/ml (0-100) Amylase Level 74 U/L (0-110) Lipase 119 U/L (23-300) Urine Color Yellow Urine Clarity Cloudy Urine pH 7.0 pH (4.8-9.5) Urine Specific [employer] 1.010 Urine Protein Negative mg/dL (NEGATIVE) Urine Glucose (UA) Negative mg/dL (NEGATIVE) Urine Ketones Negative mg/dL (NEGATIVE) Urine Blood Negative (NEGATIVE) Urine Nitrite Positive (NEGATIVE) Urine Bilirubin Negative (NEGATIVE) Urine Urobilinogen Negative mg/dL (0.2-1.9) Urine Leukocyte Esterase Large (NEGATIVE) Urine RBC <1 /HPF (0-2/HPF) Urine WBC 174 /HPF (0-5/HPF) Urine Squamous Epithelial Cells Many /LPF (NONE-FEW) Urine Bacteria Negative /HPF (NONE-FEW) Urine Mucus None /HPF (NONE-FEW) Chemistry Test 05/06/17 15:15 05/06/17 15:39 Lactate 1.4 mmol/L (0.7-2.1) Troponin I < 0.012 ng/ml C-Reactive Protein 7.4 mg/dl (<1.0) B-Type Natriuretic Peptide 562 pg/ml (0-100) Amylase Level 74 U/L (0-110) Lipase 119 U/L (23-300) Urine Color Yellow Urine Clarity Cloudy Urine pH 7.0 pH (4.8-9.5) Urine Specific [employer] 1.010 Urine Protein Negative mg/dL (NEGATIVE) Urine Glucose (UA) Negative mg/dL (NEGATIVE) Urine Ketones Negative mg/dL (NEGATIVE) Urine Blood Negative (NEGATIVE) Urine Nitrite Positive (NEGATIVE) Urine Bilirubin Negative (NEGATIVE) Urine Urobilinogen Negative mg/dL (0.2-1.9) Urine Leukocyte Esterase Large (NEGATIVE) Urine RBC <1 /HPF (0-2/HPF) Urine WBC 174 /HPF (0-5/HPF) Urine Squamous Epithelial Cells Many /LPF (NONE-FEW) Urine Bacteria Negative /HPF (NONE-FEW) Urine Mucus None /HPF (NONE-FEW) Urinalysis Test 05/06/17 15:39 Urine Color Yellow Urine Clarity Cloudy Urine pH 7.0 pH (4.8-9.5) Urine Specific [employer] 1.010 Urine Protein Negative mg/dL (NEGATIVE) Urine Glucose (UA) Negative mg/dL (NEGATIVE) Urine Ketones Negative mg/dL (NEGATIVE) Urine Blood Negative (NEGATIVE) Urine Nitrite Positive (NEGATIVE) Urine Bilirubin Negative (NEGATIVE) Urine Urobilinogen Negative mg/dL (0.2-1.9) Urine Leukocyte Esterase Large (NEGATIVE) Urine RBC <1 /HPF (0-2/HPF) Urine WBC 174 /HPF (0-5/HPF) Urine Squamous Epithelial Cells Many /LPF (NONE-FEW) Urine Bacteria Negative /HPF (NONE-FEW) Urine Mucus None /HPF (NONE-FEW) EKG/Imaging Imaging Exam type: ACUTE ABDOMEN SERIES 3 VIEW History: ABD PAIN Comparison: KUB December 12, 2016. Findings: Supine and left lateral decubitus views of the abdomen reveal small air-fluid levels in the nondilated small bowel and colon. There is no demonstration of free intraperitoneal air. Surgical clips project over the right upper quadrant of abdomen. There are postsurgical changes the right hip in the lower lumbar spine. AP portable view of the chest reveals a mildly blunted right costophrenic angle which may be related to tiny right pleural effusion or pleural thickening. There is no evidence of acute-appearing pulmonary consolidation. The cardiac silhouette appears mildly enlarged and there is moderate ectasia thoracic aorta. Implanted right IJ port distal tip projects over the superior vena cava IMPRESSION: 1. Small air-fluid levels are identified in the nondilated colon and small bowel which may be related to liquid stool Mildly blunted right costophrenic angle consistent with small right pleural effusion versus pleural thickening Report Dictated By: Ricarda Candelario MD at 05/06/2017 3:51 PM ED Course/Re-evaluation Clinical Indication for ER IV: IV Access ED Course During the ER visit, the patient has had episodes where she is more confused than others, this looks like a delirium picture. Labs look like the source would be urinary tract infection which goes along with the patient complaining of burning with urination. She does have a history of frequent urinary tract infections and I think this is the same. I talked to the family and they indicated that they're having a very difficult time over the last 24 hours especially because of the confusion. Normally they would be able to take care of her at home with oral antibiotics however it sounds like she is worsened to the point where she needs to come in the hospital. CBC and CMP are fairly unremarkable although her BUN and creatinine are elevated. I did speak with Dr. Rolon, our hospitalist, who will be admitting her. I will get blood cultures and urine culture as well before any antibiotics are started. Decision to Disposition Date: May 06, 2017 Decision to Disposition Time: 17:02 Depart Departure Latest Vital Signs Vital Signs Date Time Temp Pulse Resp B/P (MAP) Pulse Ox O2 Delivery O2 Flow Rate FiO2 05/06/17 15:26 97 05/06/17 15:00 127/54 (78) 05/06/17 14:56 87 05/06/17 14:26 15 05/06/17 14:19 98.4 Room Air Impression: Primary Impression: Recurrent urinary tract infection Additional Impression: Acute delirium Condition: Condition Unchanged Disposition: Admitted from ER Referrals: AJ HERRERA MD (PCP) Problem Qualifiers KAMLESH ARCINIEGA MD May 06, 2017 14:39
[2017-05-06] MEDS ORDERED: NS(*) 0.9% 1000 ML BAG 1,000 ML IV ONE ×2 (14:47→17:35)
--- NOTE | 2017-05-06 15:57 | RADIOLOGY IMAGING REPORT ---
FACILITY: [facility] PATIENT NAME: El Hastings : 1940 MR: [id number] V: [id number] EXAM DATE: ORDERING PHYSICIAN: KAMLESH ARCINIEGA TECHNOLOGIST: Location: [facility] Patient: El Hastings : 1940 Visit/Account:[id number] Date of Sevice: 05/06/2017 Exam type: ACUTE ABDOMEN SERIES 3 VIEW History: ABD PAIN Comparison: KUB December 12, 2016. Findings: Supine and left lateral decubitus views of the abdomen reveal small air-fluid levels in the nondilate d small bowel and colon. There is no demonstration of free intraperitoneal air. Surgical clips proj ect over the right upper quadrant of abdomen. There are postsurgical changes the right hip in the lo wer lumbar spine. AP portable view of the chest reveals a mildly blunted right costophrenic angle which may be related to tiny right pleural effusion or pleural thickening. There is no evidence of acute-appearing pulmon ed consolidation. The cardiac silhouette appears mildly enlarged and there is moderate ectasia thor acic aorta. Implanted right IJ port distal tip projects over the superior vena cava IMPRESSION: 1. Small air-fluid levels are identified in the nondilated colon and small bowel which may be relate d to liquid stool Mildly blunted right costophrenic angle consistent with small right pleural effusion versus pleural t hickening Report Dictated By: Ricarda Candelario MD at 05/06/2017 3:51 PM Report E-Signed By: Ricarda Candelario MD at 05/06/2017 3:53 PM WSN:[id number]
[2017-05-06 17:55] VITALS: BP 156/66
[2017-05-06] MEDS ORDERED: NS(*) 0.9% 1000 ML BAG 1,000 ML IV PRN (19:22)
[2017-05-06] MEDS ORDERED: HYPROMELLOSE 0.4% LUB 15ML BTL OU PRN (19:25)
[2017-05-06] MEDS ORDERED: NITROGLYCERIN 0.4 MG SUBL SL PRN (19:25)
[2017-05-06] MEDS ORDERED: POLYETHYLENE GLYCOL 17 GM PKT PO PRN (19:25)
--- NOTE | 2017-05-06 19:40 | History & Physical ---
History of Present Illness Chief Complaint Altered mental status History of Present Illness This patient was brought to the emergency room after she was noted to have altered mental status on a follow up appointment in the [facility]. On arrival to the medical floor she was oriented and was able to identify me and discuss previous visits. She was discharged to the skilled nursing after her last admission, but was discharged from the skilled nursing earlier this week. The patient reports that she felt poorly and weak since leaving the home. She also reports that she has become progressively weaker over the last 2 days. History Problems: (1) Carcinomatosis Status: Chronic (2) CKD (chronic kidney disease) stage 3, GFR 30-59 ml/min Status: Chronic (3) Hypertension, benign Status: Chronic (4) Hypothyroidism Status: Chronic (5) CVA (cerebral infarction) Status: Chronic (6) Atrial fibrillation Status: Chronic (7) Depression Status: Chronic (8) Pulmonary embolism Status: Chronic (9) Depression Status: Chronic (10) DM2 (diabetes mellitus, type 2) Status: Chronic (11) Chronic heart failure with normal ejection fraction Status: Chronic (12) S/P cholecystectomy Status: Chronic (13) S/P hysterectomy Status: Chronic Home Meds Active Scripts Dexamethasone 4 Mg Tab (DEXAMETHASONE 4 MG TAB) 4 Mg Tab, 4 MG PO BID for before during and after chemo for 3 Days, #12 TAB 3 Refills Prov:AJ HERRERA MD 04/09/17 Dextroamphetamine Sulfate (DEXTROAMPHETAMINE SULFATE) 10 Mg Capsule.er, 10 MG PO QAM, #30 CAP 0 Refills Prov:AJ HERRERA MD 04/05/17 Dextroamphetamine Sulfate (DEXTROAMPHETAMINE SULFATE) 5 Mg Tablet, 5 MG PO BID, #60 TAB Prov:AJ HERRERA MD 04/05/17 Oxcarbazepine (OXCARBAZEPINE) 150 Mg Tablet, 1 TAB PO BID for to stabilize mood. , #180 TAB 3 Refills Prov:JOSHUA MCGILL APRN BUSINESS SYSTEMS ADVISOR-C 02/22/17 Diltiazem Hcl (DILTIAZEM 24HR ER) 120 Mg Cap.er.24h, 120 MG PO QHS, #30 TAB Prov:NORY MESA MD 02/16/17 Diltiazem Hcl (CARDIZEM CD) 180 Mg Cap.er.24h, 180 MG PO QAM, #30 CAP 1 Refill Prov:NORY MESA MD 02/16/17 Metoprolol Tartrate (METOPROLOL TARTRATE) 50 Mg Tab, 1 TAB PO BID, #180 TAB 4 Refills Prov:NORY MESA MD 02/04/17 Nitroglycerin (NITROSTAT) 0.4 Mg Subl, 1 TAB SL Q5MIN, #[address] TAB[address] 1 tab under tongue at the 1st sign of chest pain; repeat every 5 min. Prov:JOSHUA MCGILL APRN BUSINESS SYSTEMS ADVISOR-C 11/20/16 Gabapentin (GABAPENTIN) 300 Mg Capsule, 300 MG PO QHS, #30 CAPSULE 11 Refills Prov:NORY MESA MD 10/16/16 Levothyroxine Sodium (LEVOTHYROXINE SODIUM) 100 Mcg Tablet, 100 MCG PO QDAY, # 90 TAB 4 Refills Prov:TIKA SCHAEFFER DNP, BUSINESS SYSTEMS ADVISOR-BC 10/14/16 Tiotropium [place] (SPIRIVA) 18 Mcg/Cap Inh, 18 MCG INH QDAY, #1 INH 11 Refills Prov:NORY MESA MD 09/11/16 Glimepiride (GLIMEPIRIDE) 2 Mg Tablet, 1 TAB PO QDAY, #30 TAB 5 Refills Prov:NORY MESA MD 09/04/16 Oxygen (OXYGEN) Inha, 3 L INH DIRECTED, #2 L Wear 3 L Nasal Canula during the day and continue same dose of oxgen at night. Pt. will need portable oxygen to leave the house. Prov:NORY MESA MD 03/13/16 [place]-3 (FISH OIL 500 MG SOFTGEL) 500 Mg Cap, 1000 MG PO QDAY, #30 CAP Prov:YANELIS SO MD 02/27/15 Hypromellose (NATURAL BALANCE TEARS) 15 Ml Drop, 0 ML OU PRN Y for dry eyes, #1 BOTTLE Prov:YANELIS SO MD 02/27/15 Cyclosporine (RESTASIS) 1 Each Droperette, 1 EACH OU BID, #1 BOTTLE Prov:YANELIS SO MD 02/27/15 Reported Medications Promethazine Hcl (PROMETHAZINE HCL) 25 Mg Tablet, 25 MG PO Q8H, TAB 05/06/17 Omeprazole (OMEPRAZOLE) 20 Mg Tablet.dr, 20 MG PO BID, TAB 05/06/17 Ranitidine Hcl (ZANTAC) 150 Mg Tablet, 75 MG PO QDAY, TAB 05/06/17 Acetaminophen (TYLENOL EXTRA STRENGTH) 500 Mg Tablet, 500 MG PO PRN, TAB 03/07/17 Polyethylene Glycol 3350 (MIRALAX) 17 Gm Powd.pack, 17 GM PO ONCE Y for BOWELS, PKT 03/07/17 Sennosides (SENNA) 8.6 Mg Tablet, 8.6 MG PO QPM 03/07/17 Lactobacillus Combination No.4 (PROBIOTIC) 1 Each Capsule, 1 EACH PO QAM, CAPSULE 03/07/17 Folic Acid (FOLIC ACID) 1 Mg Tablet, 1 MG PO QAM, TAB 03/07/17 Dabigatran Etexilate Mesylate (PRADAXA) 150 Mg Capsule, 150 MG PO BID, CAPSULE 02/02/17 Vit A,C & E/Lutein/Minerals (OCUVITE TABLET) 1 Each Tablet, 1 TAB PO QDAY 04/22/16 Cholecalciferol (Vitamin D3) (VITAMIN D3) 2,000 Unit Capsule, 2000 UNIT PO QDAY , CAPSULE 09/28/15 Discontinued Scripts Clotrimazole (CLOTRIMAZOLE) 10 Mg Troc, 10 MG MT 3-5 times daily Y for oral candidiasis, #30 Prov:MARISARICHMirella Terrell DO 03/07/17 Allergies: Coded Allergies: tetanus toxoid, adsorbed (Verified Allergy, Severe, HIVES, 03/09/17) SHANNA Inhibitors (Verified Allergy, Mild, 03/09/17) Penicillins (Verified Allergy, Mild, SWELLING, 03/09/17) Sulfa (Sulfonamide Antibiotics) (Verified Allergy, Mild, RASH, 03/09/17) prednisone (Verified Allergy, Mild, Hallucinations, 03/09/17) modafinil (Verified Adverse Reaction, Severe, 03/09/17) Suicidal ideation Patient History: FH: CHF (congestive heart failure) MOTHER FH: breast cancer MOTHER MATERNAL GRANDMOTHER FH: dementia FATHER FHx: anemia FHx: anemia FHx: anemia Unobtainable due to patient's condition FATHER MOTHER MATERNAL GRANDMOTHER CHILD, Age:55 CHILD, Age:50 Valvular heart disease MOTHER Hx Smoking: No Smoking Status: Never Smoker Exposure to Second Hand Smoke?: No Caffeine Intake: Coffee, Tea, Soda Caffeine/Cups Per Day: "I consume a great deal of all three" Hx Alcohol Use: No Alcohol Used: Liquor Hx Substance Use Disorder: No (Used Darvocet for pain for 25 years) Social Drug Use: Never Social Drugs: Prescription Drugs History of IV Drug Use: No Review of Systems All Systems Reviewed/Normal: Yes, Except as Noted Neurological: Weakness Exam Vital Signs Vital Signs Date Time Temp Pulse Resp B/P (MAP) Pulse Ox O2 Delivery O2 Flow Rate FiO2 05/06/17 17:55 85 05/06/17 17:55 Nasal Cannula 3.0 05/06/17 17:55 98.2 97 20 156/66 (96) Neuro: No Gross deficits Eyes: PERRLA Cardiovascular: Regular Rate and Rhythm Respiratory: Clear to Auscultation GI: Abd Soft and Non-Tender Extremities: No Edema Integumentary: No Cyanosis Assessment and Plan Problems: (1) Altered mental status Status: Acute Assessment & Plan: Her mentation was clear by the time she arrived to the medical floor. Her laboratory examination (partially resulted under a prior encounter) is relatively benign other than a contaminated urine sample. She is afebrile and her WBC is normal. We will continue IV fluids overnight and repeat labs in the morning. We will defer starting antibiotics at this time. A urine culture is pending. (2) Atrial fibrillation *Optional Permanent Comment*: With intermittent RVR Last Edited By: Nory Mesa MD on Jun 19, 2016 10:30 Status: Chronic Assessment & Plan: She is on chronic treatment with Pradaxa and diltiazem. (3) DM2 (diabetes mellitus, type 2) Status: Chronic Assessment & Plan: She is on chronic treatment with glimepiride. (4) Hypothyroidism Status: Chronic Assessment & Plan: She is on chronic treatment with levothyroxine. (5) Narcolepsy Status: Chronic Assessment & Plan: She is on chronic treatment with dextroamphetamine. (6) Hypertension, benign Status: Chronic Assessment & Plan: She is on chronic treatment with metoprolol. Copies to: GREGORY ARMSTRONG BUSINESS SYSTEMS ADVISOR-BC, ONC Venous Thromboembolism Antithrombotics Is Pt On Any Antithrombotics?: Yes Exam Sepsis Risk: No Definite Risk YARELIS VAZ DO May 06, 2017 19:40
[2017-05-06] MEDS: DILTIAZEM CD 120 MG CAPCR PO SCH (20:17)
[2017-05-06] MEDS: DEXTROAMPHETAMINE 5 MG PO SCH (20:17)
[2017-05-06] MEDS: METOPROLOL TART 50 MG TAB PO SCH (20:17)
[2017-05-06] MEDS: GABAPENTIN 300 MG CAP PO SCH (20:17)
[2017-05-06] MEDS: OXCARBAZEPINE 150 MG TABLET PO SCH (20:18)
[2017-05-06] MEDS: cycloSPORINE 0.05% EMUL 1 DROP OU SCH (20:18)
[2017-05-06] MEDS: DABIGATRAN ETEXILATE 75 MG CAP PO SCH (20:18)
[2017-05-06 20:20] VITALS: BP 125/91
[2017-05-06] MEDS: ACETAMINOPHEN 500 MG TAB PO PRN (22:31)
[2017-05-06 22:32] VITALS: BP 128/71
[2017-05-07 03:39] VITALS: BP 150/65
[2017-05-07] MEDS: TIOTROPIUM BROM INH 18 MCG/CAP INH SCH (05:18)
[2017-05-07] MEDS: LEVOTHYROXINE SOD 0.1 MG TAB PO SCH (05:25)
[2017-05-07 05:40] LABS: PLATELET COUNT, AUTOMATED 144 K/uL (150-450)
[2017-05-07 08:04] VITALS: BP 134/67
[2017-05-07 08:41] VITALS: Ht 162.6 cm; Wt 74.2 kg
[2017-05-07] MEDS: DEXTROAMPHETAMINE 10 MG PO SCH (09:49)
[2017-05-07] MEDS: METOPROLOL TART 50 MG TAB PO SCH ×2 (09:49→20:44)
[2017-05-07] MEDS: FOLIC ACID 1 MG TAB PO SCH (09:49)
[2017-05-07] MEDS: GLIMEPIRIDE 2 MG TAB PO SCH (09:49)
[2017-05-07] MEDS: DABIGATRAN ETEXILATE 75 MG CAP PO SCH ×2 (09:50→20:44)
[2017-05-07] MEDS: DILTIAZEM CD 180 MG CAPCR PO SCH (09:50)
[2017-05-07] MEDS: cycloSPORINE 0.05% EMUL 1 DROP OU SCH ×2 (09:50→20:44)
[2017-05-07] MEDS: OXCARBAZEPINE 150 MG TABLET PO SCH ×2 (09:50→20:44)
[2017-05-07] MEDS: DEXTROAMPHETAMINE 5 MG PO SCH ×2 (09:50→20:44)
--- NOTE | 2017-05-07 10:53 | Hospitalist Progress Note ---
Subjective Progress Notes Subjective The patient reports some mild dysuria. Otherwise, she is feeling well. She doesn't want to go back home or the [facility]. Physical Exam Vital Signs Date Time Temp Pulse Resp B/P (MAP) Pulse Ox O2 Delivery O2 Flow Rate FiO2 05/07/17 09:53 86 05/07/17 08:04 97.7 16 134/67 (89) 98 Nasal Cannula 2.0 Intake and Output 05/08/17 07:00 Intake Total 1380 ml Balance 1380 ml Intake Oral 500 ml IV Total 880 ml General Appearance: Alert, Awake, No Acute Distress Neuro: No Gross deficits (Knows where she is and why she is in the hospital. She knows the events that led to her admission. Equal drywall application supervisor, elbow flexion/ extension, dorsiflexion and plantar flexion strength. She sounds like she is slurring some words, but doesn't have her dentures in. No facial droop.) GI: Soft and Non-Tender Result Diagram: 05/07/17 0505/07/17 05 Assessment and Plan Problems: (1) Altered mental status Status: Resolved Assessment & Plan: Her mentation was clear by the time she arrived to the medical floor. Her laboratory examination (partially resulted under a prior encounter) is relatively benign other than a contaminated urine sample. She is afebrile and her WBC is normal. She was given gentle hydration that has been stopped. We will defer starting antibiotics at this time. A urine culture is pending. She will work with OT/PT. SW to help with disposition as the patient is refusing to go home or the [facility]. (2) Atrial fibrillation *Optional Permanent Comment*: With intermittent RVR Last Edited By: Nory Mesa MD on Jun 19, 2016 10:30 Status: Chronic Assessment & Plan: She is on chronic treatment with Pradaxa and diltiazem. (3) DM2 (diabetes mellitus, type 2) Status: Chronic Assessment & Plan: She is on chronic treatment with glimepiride. (4) Hypothyroidism Status: Chronic Assessment & Plan: She is on chronic treatment with levothyroxine. (5) Narcolepsy Status: Chronic Assessment & Plan: She is on chronic treatment with dextroamphetamine. (6) Hypertension, benign Status: Chronic Assessment & Plan: She is on chronic treatment with metoprolol. Exam Sepsis Risk: No Definite Risk VICTOR HUGO RUBI MD May 07, 2017 10:53
[2017-05-07 11:27] VITALS: BP 142/69
[2017-05-07 16:13] VITALS: BP 129/58
[2017-05-07] MEDS: ACETAMINOPHEN 500 MG TAB PO PRN (16:19)
[2017-05-07] MEDS ORDERED: SENNOSIDES 8.6 MG TAB PO SCH (17:00)
[2017-05-07] MEDS ORDERED: CALCIUM CARBONATE 500 MG CHEW PO PRN (19:15)
[2017-05-07 20:01] VITALS: BP 132/57
[2017-05-07] MEDS: GABAPENTIN 300 MG CAP PO SCH (20:43)
[2017-05-07] MEDS: DILTIAZEM CD 120 MG CAPCR PO SCH (20:44)
[2017-05-07] MEDS: RANITIDINE HCL 150 MG TAB PO SCH (20:44)
[2017-05-07] MEDS ORDERED: INSULIN HUM LISPRO 100 UN/ML 3 ML VIAL SUBQ PRN (21:20)
[2017-05-07 23:29] VITALS: BP 134/70
[2017-05-08] MEDS: TIOTROPIUM BROM INH 18 MCG/CAP INH SCH (05:09)
[2017-05-08 05:37] VITALS: BP 144/63
[2017-05-08] MEDS: LEVOTHYROXINE SOD 0.1 MG TAB PO SCH (05:51)
[2017-05-08 06:04] LABS: PLATELET COUNT, AUTOMATED 157 K/uL (150-450)
[2017-05-08 07:30] VITALS: BP 149/71
[2017-05-08] MEDS: METOPROLOL TART 50 MG TAB PO SCH (09:39)
[2017-05-08] MEDS: GLIMEPIRIDE 2 MG TAB PO SCH (09:39)
[2017-05-08] MEDS: DILTIAZEM CD 180 MG CAPCR PO SCH (09:39)
[2017-05-08] MEDS: OXCARBAZEPINE 150 MG TABLET PO SCH (09:40)
[2017-05-08] MEDS: FOLIC ACID 1 MG TAB PO SCH (09:40)
[2017-05-08] MEDS: DEXTROAMPHETAMINE 10 MG PO SCH (09:40)
[2017-05-08] MEDS: cycloSPORINE 0.05% EMUL 1 DROP OU SCH (09:40)
[2017-05-08] MEDS: DEXTROAMPHETAMINE 5 MG PO SCH (09:40)
[2017-05-08] MEDS: DABIGATRAN ETEXILATE 75 MG CAP PO SCH (09:40)
[2017-05-08] MEDS: RANITIDINE HCL 150 MG TAB PO SCH (09:40)
--- NOTE | 2017-05-08 10:34 | Hospitalist Progress Note ---
Subjective Progress Notes Subjective The patient feels better today. She is back to her baseline. She ate breakfast well. Physical Exam Vital Signs Date Time Temp Pulse Resp B/P (MAP) Pulse Ox O2 Delivery O2 Flow Rate FiO2 05/08/17 09:48 95 05/08/17 07:34 Nasal Cannula 2.0 05/08/17 07:30 98.1 90 16 149/71 (97) Intake and Output 05/09/17 07:00 Intake Total 596 ml Balance 596 ml Intake Oral 596 ml # Voids 1 General Appearance: Alert, Awake, No Acute Distress, Afebrile Cardiovascular: Regular Rate and Rhythm Respiratory: Clear to Auscultation GI: Soft and Non-Tender Extremities: Warm, Perfused Psych: Appropriate Mood & Affect Result Diagram: 05/08/17 0535 05/08/17 0535 Blood cultures X 2 negative. Urine culture negative after 2 days. Assessment and Plan Problems: (1) Altered mental status Status: Resolved Assessment & Plan: Her mentation was clear by the time she arrived to the medical floor. Her laboratory examination (partially resulted under a prior encounter) is relatively benign other than a contaminated urine sample. She had some pyuria but negative bacteria and many squamous epithelial cells. She remains afebrile and her WBC is normal. She gentle hydrated and now is saline locked. No antibiotics were given. A urine culture is negative after 2 days. She was seen by OT/PT. The patient is agreeable to return home today. (2) Atrial fibrillation *Optional Permanent Comment*: With intermittent RVR Last Edited By: Nory Mesa MD on Jun 19, 2016 10:30 Status: Chronic Assessment & Plan: She is on chronic treatment with Pradaxa and diltiazem. (3) DM2 (diabetes mellitus, type 2) Status: Chronic Assessment & Plan: She is on chronic treatment with glimepiride. (4) Hypothyroidism Status: Chronic Assessment & Plan: She is on chronic treatment with levothyroxine. (5) Narcolepsy Status: Chronic Assessment & Plan: She is on chronic treatment with dextroamphetamine. (6) Hypertension, benign Status: Chronic Assessment & Plan: She is on chronic treatment with metoprolol. Time Spent on Plan of Care: < 30 min Exam Sepsis Risk: No Definite Risk YANELIS SO MD May 08, 2017 10:34
[2017-05-08 11:55] VITALS: BP 158/68
--- NOTE | 2017-05-08 15:02 | Hospitalist Depart ---
Discharge Summary Reason for Hosp/Final Diag: (1) Altered mental status Status: Resolved Hospital Course & Plan: The patient [facility] an [facility] and was transferred to the ER for evaluation. She was subsequently admitted. Her mentation had cleared by the time she arrived to the medical floor. Her laboratory examination was relatively benign other than a contaminated urine sample. On urinalysis, she had pyuria but negative bacteria and many squamous epithelial cells. A urine culture remained negative after 2 days. She remained afebrile and her WBC was normal. She was gently hydrated and then saline locked. No antibiotics were given. She was seen by OT/PT and will continue with therapy through Home Health upon discharge. The patient's requested to take her home noting that she frequently had these episodes at home and she was at her baseline. (2) Atrial fibrillation *Optional Permanent Comment*: With intermittent RVR Last Edited By: Nory Mesa MD on Jun 19, 2016 10:30 Status: Chronic Hospital Course & Plan: She was continued on chronic treatment with Pradaxa and diltiazem. (3) DM2 (diabetes mellitus, type 2) Status: Chronic Hospital Course & Plan: She was continued on chronic treatment with glimepiride. (4) Hypothyroidism Status: Chronic Hospital Course & Plan: She was continued on chronic treatment with levothyroxine. (5) Narcolepsy Status: Chronic Hospital Course & Plan: She was continued on chronic treatment with dextroamphetamine. (6) Hypertension, benign Status: Chronic Hospital Course & Plan: She was continued on chronic treatment with metoprolol. Departure Weight (Pounds): 163 Weight (Ounces): 8.0 Result Diagram: 05/08/17 0535 05/08/17 0535 Condition: Improved Discharge: Home, Home Health PT/OT Follow Up For: PT Evaluation and Treat, OT Evaluation and Treat Home Health RN Follow Up For: Nursing Assessment Home Health FINANCIAL INTERN Follow Up For: ADL Assistance Time Spent: < 30 min Discharge Instructions Home Meds Active Scripts Dexamethasone 4 Mg Tab (DEXAMETHASONE 4 MG TAB) 4 Mg Tab, 4 MG PO BID for before during and after chemo for 3 Days, #12 TAB 3 Refills Prov:JOSSY HERRERA MD 04/09/17 Dextroamphetamine Sulfate (DEXTROAMPHETAMINE SULFATE) 10 Mg Capsule.er, 10 MG PO QAM, #30 CAP 0 Refills Prov:JOSSY HERRERA MD 04/05/17 Dextroamphetamine Sulfate (DEXTROAMPHETAMINE SULFATE) 5 Mg Tablet, 5 MG PO BID, #60 TAB Prov:JOSSY HERRERA MD 04/05/17 Oxcarbazepine (OXCARBAZEPINE) 150 Mg Tablet, 1 TAB PO BID for to stabilize mood. , #180 TAB 3 Refills Prov:JOSHUA MCGILL APRN SENIOR NET ARCHITECT-C 02/22/17 Diltiazem Hcl (DILTIAZEM 24HR ER) 120 Mg Cap.er.24h, 120 MG PO QHS, #30 TAB Prov:NORY MESA MD 02/16/17 Diltiazem Hcl (CARDIZEM CD) 180 Mg Cap.er.24h, 180 MG PO QAM, #30 CAP 1 Refill Prov:NORY MESA MD 02/16/17 Metoprolol Tartrate (METOPROLOL TARTRATE) 50 Mg Tab, 1 TAB PO BID, #180 TAB 4 Refills Prov:NORY MESA MD 02/04/17 Nitroglycerin (NITROSTAT) 0.4 Mg Subl, 1 TAB SL Q5MIN, #[address] TAB[address] 1 tab under tongue at the 1st sign of chest pain; repeat every 5 min. Prov:JOSHUA MCGILL APRN SENIOR NET ARCHITECT-C 11/20/16 Gabapentin (GABAPENTIN) 300 Mg Capsule, 300 MG PO QHS, #30 CAPSULE 11 Refills Prov:NORY MESA MD 10/16/16 Levothyroxine Sodium (LEVOTHYROXINE SODIUM) 100 Mcg Tablet, 100 MCG PO QDAY, # 90 TAB 4 Refills Prov:TIKA SCHAEFFER [facility], SENIOR NET ARCHITECT-BC 10/14/16 Tiotropium [place] (SPIRIVA) 18 Mcg/Cap Inh, 18 MCG INH QDAY, #1 INH 11 Refills Prov:NORY MESA MD 09/11/16 Glimepiride (GLIMEPIRIDE) 2 Mg Tablet, 1 TAB PO QDAY, #30 TAB 5 Refills Prov:NORY MESA MD 09/04/16 Oxygen (OXYGEN) Inha, 3 L INH DIRECTED, #2 L Wear 3 L Nasal Canula during the day and continue same dose of oxgen at night. Pt. will need portable oxygen to leave the house. Prov:NORY MESA MD 03/13/16 [place]-3 (FISH OIL 500 MG SOFTGEL) 500 Mg Cap, 1000 MG PO QDAY, #30 CAP Prov:YANELIS SO MD 02/27/15 Hypromellose (NATURAL BALANCE TEARS) 15 Ml Drop, 0 ML OU PRN Y for dry eyes, #1 BOTTLE Prov:YANELIS SO MD 02/27/15 Cyclosporine (RESTASIS) 1 Each Droperette, 1 EACH OU BID, #1 BOTTLE Prov:YANELIS SO MD 02/27/15 Reported Medications Promethazine Hcl (PROMETHAZINE HCL) 25 Mg Tablet, 25 MG PO Q8H, TAB 05/06/17 Omeprazole (OMEPRAZOLE) 20 Mg Tablet.dr, 20 MG PO BID, TAB 05/06/17 Ranitidine Hcl (ZANTAC) 150 Mg Tablet, 75 MG PO QDAY, TAB 05/06/17 Acetaminophen (TYLENOL EXTRA STRENGTH) 500 Mg Tablet, 500 MG PO PRN, TAB 03/07/17 Polyethylene Glycol 3350 (MIRALAX) 17 Gm Powd.pack, 17 GM PO ONCE Y for BOWELS, PKT 03/07/17 Sennosides (SENNA) 8.6 Mg Tablet, 8.6 MG PO QPM 03/07/17 Lactobacillus Combination No.4 (PROBIOTIC) 1 Each Capsule, 1 EACH PO QAM, CAPSULE 03/07/17 Folic Acid (FOLIC ACID) 1 Mg Tablet, 1 MG PO QAM, TAB 03/07/17 Dabigatran Etexilate Mesylate (PRADAXA) 150 Mg Capsule, 150 MG PO BID, CAPSULE 02/02/17 Vit A,C & E/Lutein/Minerals (OCUVITE TABLET) 1 Each Tablet, 1 TAB PO QDAY 04/22/16 Cholecalciferol (Vitamin D3) (VITAMIN D3) 2,000 Unit Capsule, 2000 UNIT PO QDAY , CAPSULE 09/28/15 Discontinued Scripts Clotrimazole (CLOTRIMAZOLE) 10 Mg Troc, 10 MG MT 3-5 times daily Y for oral candidiasis, #30 Prov:CARLOTA CUNNINGHAM DO 03/07/17 Follow up Referrals: Internal Medicine - In One Month @ [facility] with Jossy Herrera Md Diet: Diabetic Activity: As Tolerated Special Instructions: The patient is to follow up with her PCP and the Cancer Center as previously scheduled. Copies to: JOSSY HERRERA MD; GREGORY ARMSTRONG SENIOR NET ARCHITECT-BC, ONC Venous Thromboembolism Antithrombotics Is Pt On Any Antithrombotics?: Yes [id number] Certification Face to Face Home Health Certification Institutional Provider conducted the [id number] encounter. Electronic Undersigning Physician Certifies Home Health. I certify that the patient has been under my care and that I had a [id number] encounter that meets the physician [id number] encounter requirements with this patient. This patient is home-bound due to safety issues and continues to require assistance with ADL's. I certify that based on my findings, that Nursing, Aides and the following Home Health services are medically necessary: PT/OT Medical Necessity: Nursing, Rehab Date Face to Face Conducted: May 08, 2017 YANELIS SO MD May 08, 2017 15:02
[2017-05-08] MEDS: ACETAMINOPHEN 500 MG TAB PO PRN (16:06)
[2017-05-09] MEDS ORDERED: INFLUENZA VIRUS VAC 0.5 ML SYR IM ONLY ONE (09:00)
== END 2017-05-08 14:53 | disposition home health service (06) ==
LOC: ER 14:25 → MED 16:55 → INTOOBSV 16:55
PROVIDERS: ADMIT Family Medicine; ATTEND Family Medicine
DX: N39.0 Urinary tract infection, site not specified (principal); R41.0 Disorientation, unspecified; I48.2 Chronic atrial fibrillation; Z79.01 Long term (current) use of anticoagulants; E11.9 Type 2 diabetes mellitus without complications; E03.9 Hypothyroidism, unspecified; G47.419 Narcolepsy without cataplexy; I10 Essential (primary) hypertension
CPT/HCPCS: 36415; 36416; 74022; 81001; 82150; 82948; 83605; 83690; 83880; 84484; 85025; 86140; 87040; 87088; 94640; 96360; 96361; 97161; 97165; 97530; 99285; A4353; A9270; G0378; J1815; J3535; J7030; 82310; 82374; 82435; 82565; 82947; 84132; 84295; 84520

== ENCOUNTER 2017-05-20 13:08 | Outpatient (RCR) | payer OTHER, MEDICARE ==
[2017-02-25 13:27] VITALS: BP 174/84
[2017-02-25] MEDS: NS(*) 0.9% 100 ML BAG 100 ML IVPB PRN ×2 (14:00→14:57)
[2017-02-25] MEDS: PALONOSETRON 0.25 MG/5 ML VIAL IVP PRN (14:41)
[2017-02-25] MEDS: CYANOCOBALAMIN 1000MCG/ML VIAL IM ONLY PRN (15:41)
[2017-03-09 12:16] VITALS: BP 116/73
[2017-03-09] MEDS: LIDOCAINE/SOD BICARB 8.4% SYR ID PRN (12:25)
[2017-03-09 12:30] LABS: PLATELET COUNT, AUTOMATED 187 K/uL (150-450)
[2017-04-02 09:10] VITALS: BP 126/81
[2017-04-02] MEDS: LIDOCAINE/SOD BICARB 8.4% SYR ID PRN (09:36)
[2017-04-02] MEDS: PALONOSETRON 0.25 MG/5 ML VIAL IVP PRN (09:37)
--- NOTE | 2017-04-02 10:02 | ONC Progress Note - NP.Halsey ---
Patient History Date of Service Apr 02, 2017 Reason For Visit/HPI Patient is seen with her spouse in the clinic today for cycle 4 of Alimta chemotherapy for her ovarian carcinoma. Patient is currently residing in the [facility] to receive physical therapy for strengthening post hospital visit with urinary tract infection. Spouse reports that patient is doing well in the care Center and that she is getting stronger with physical therapy. She denies any side effects or concerns today. She is very tired and reports that she did not sleep last night because she stayed up too late watching the late night news. Problem List (1) Ovarian carcinoma Oncology History The patient is a 76-year-old female with past medical history significant for atrial fibrillation, congestive heart failure, hypothyroidism. She presented in the hospital with ascites with probable metastatic ovarian cancer. The patient had CT of abdomen and pelvis done on January 25, 2015 which showed extensive peritoneal metastatic disease with no definite primary identified. There was moderate abdominopelvic ascites. There was a small bilateral pleural effusion with left posterior costophrenic space pleural nodularity concerning for metastatic disease. Tumor marker with CA was normal at 2.6. CA 19-9 was mildly elevated at 50, but CA-125 was 2847. Paracentesis done on February 07, 2015 and cytology came back positive for clusters of cells suspicious for adenocarcinoma. Genetic testing with BRCA1 and BRCA2 came back negative. The patient has been evaluated at the [facility] by Dr. Benz with recommendation of single agent chemotherapy with carboplatin The patient started chemotherapy with single agent carboplatin with AUC of 4 on March 12, 2015. She received six cycles between March 12, 2015 through July 25, 2015, and CA-125 on August 06, 2015 dropped to 420. She had progression of her disease and the patient has been evaluated again at [facility] with recommendation of putting her back on carboplatin, and the patient started that November 29, 2015 with gradual decline of her CA-125, which dropped from 1090 to 327. She actually stopped her treatment May 15, 2016 and at that time her CA-125 was 481. Her CA-125 started to increase from 609 to 1400. She was evaluated again at [facility] with recommendation of single-agent rucaparib, which was denied by her insurance. At that time after discussion with the patient she agreed to start treatment with Avastin and Alimta, and the patient started treatment on October 19, 2016. She tolerated treatment well but then developed a pulmonary embolism on 2016. Avastin was discontinued. Patient has continued treatment on single agent Alimta. Medical History Family History: FH: CHF (congestive heart failure) MOTHER FH: breast cancer MOTHER MATERNAL GRANDMOTHER FH: dementia FATHER FHx: anemia FHx: anemia FHx: anemia Unobtainable due to patient's condition FATHER MOTHER MATERNAL GRANDMOTHER CHILD, Age:55 CHILD, Age:50 Valvular heart disease MOTHER Psychosocial History Social History The patient is . She has 2 adult daughters. She has never smoked. She drinks alcohol occasionally. Smoking History: No Smoking Status: Never Smoker Exposure to Second Hand Smoke?: No Medications and Allergies Active Scripts Dextroamphetamine Sulfate (DEXTROAMPHETAMINE SULFATE) 10 Mg Capsule.er, 10 MG PO QAM, #30 CAP 0 Refills Prov:AJ HERRERA MD 03/19/17 Dextroamphetamine Sulfate (DEXTROAMPHETAMINE SULFATE) 5 Mg Tablet, 5 MG PO BID, #60 TAB Prov:AJ HERRERA MD 03/19/17 Clotrimazole (CLOTRIMAZOLE) 10 Mg Troc, 10 MG MT 3-5 times daily Y for oral candidiasis, #30 Prov:CARLOTA CUNNINGHAM DO 03/07/17 Oxcarbazepine (OXCARBAZEPINE) 150 Mg Tablet, 1 TAB PO BID for to stabilize mood. , #180 TAB 3 Refills Prov:JOSHUA MCGILL APRN [employer] 02/22/17 Diltiazem Hcl (DILTIAZEM 24HR ER) 120 Mg Cap.er.24h, 120 MG PO QHS, #30 TAB Prov:MANISHA VÁZQUEZ MD 02/16/17 Diltiazem Hcl (CARDIZEM CD) 180 Mg Cap.er.24h, 180 MG PO QAM, #30 CAP 1 Refill Prov:MANISHA VÁZQUEZ MD 02/16/17 Metoprolol Tartrate (METOPROLOL TARTRATE) 50 Mg Tab, 1 TAB PO BID, #180 TAB 4 Refills Prov:MANISHA VÁZQUEZ MD 02/04/17 Nitroglycerin (NITROSTAT) 0.4 Mg Subl, 1 TAB SL Q5MIN, #14 TAB[address] 1 tab under tongue at the 1st sign of chest pain; repeat every 5 min. Prov:JOSHUA MCGILL APRN [employer] 11/20/16 Gabapentin (GABAPENTIN) 300 Mg Capsule, 300 MG PO QHS, #30 CAPSULE 11 Refills Prov:MANISHA VÁZQUEZ MD 10/16/16 Levothyroxine Sodium (LEVOTHYROXINE SODIUM) 100 Mcg Tablet, 100 MCG PO QDAY, # 90 TAB 4 Refills Prov:TIKA SCHAEFFER DNP, [employer] 10/14/16 Tiotropium [place] (SPIRIVA) 18 Mcg/Cap Inh, 18 MCG INH QDAY, #1 INH 11 Refills Prov:MANISHA VÁZQUEZ MD 09/11/16 Glimepiride (GLIMEPIRIDE) 2 Mg Tablet, 1 TAB PO QDAY, #30 TAB 5 Refills Prov:MANISHA VÁZQUEZ MD 09/04/16 Oxygen (OXYGEN) Inha, 3 L INH DIRECTED, #2 L Wear 3 L Nasal Canula during the day and continue same dose of oxgen at night. Pt. will need portable oxygen to leave the house. Prov:MANISHA VÁZQUEZ MD 03/13/16 [place]-3 (FISH OIL 500 MG SOFTGEL) 500 Mg Cap, 1000 MG PO QDAY, #30 CAP Prov:YANELIS SO MD 02/27/15 Hypromellose (NATURAL BALANCE TEARS) 15 Ml Drop, 0 ML OU PRN Y for dry eyes, #1 BOTTLE Prov:YANELIS SO MD 02/27/15 Cyclosporine (RESTASIS) 1 Each Droperette, 1 EACH OU BID, #1 BOTTLE Prov:YANELIS SO MD 02/27/15 Reported Medications Acetaminophen (TYLENOL EXTRA STRENGTH) 500 Mg Tablet, 500 MG PO PRN, TAB 03/07/17 Polyethylene Glycol 3350 (MIRALAX) 17 Gm Powd.pack, 17 GM PO ONCE Y for BOWELS, PKT 03/07/17 Sennosides (SENNA) 8.6 Mg Tablet, 8.6 MG PO QPM 03/07/17 Lactobacillus Combination No.4 (PROBIOTIC) 1 Each Capsule, 1 EACH PO QAM, CAPSULE 03/07/17 Folic Acid (FOLIC ACID) 1 Mg Tablet, 1 MG PO QAM, TAB 03/07/17 Dabigatran Etexilate Mesylate (PRADAXA) 150 Mg Capsule, 150 MG PO BID, CAPSULE 02/02/17 Vit A,C & E/Lutein/Minerals (OCUVITE TABLET) 1 Each Tablet, 1 TAB PO QDAY 04/22/16 Cholecalciferol (Vitamin D3) (VITAMIN D3) 2,000 Unit Capsule, 2000 UNIT PO QDAY , CAPSULE 09/28/15 Allergies: Coded Allergies: tetanus toxoid, adsorbed (Verified Allergy, Severe, HIVES, 03/09/17) SHANNA Inhibitors (Verified Allergy, Mild, 03/09/17) Penicillins (Verified Allergy, Mild, SWELLING, 03/09/17) Sulfa (Sulfonamide Antibiotics) (Verified Allergy, Mild, RASH, 03/09/17) prednisone (Verified Allergy, Mild, Hallucinations, 03/09/17) modafinil (Verified Adverse Reaction, Severe, 03/09/17) Suicidal ideation Review of System/Physical Exam Review of Systems All Systems Reviewed/Normal: Yes, Except as Noted Respiratory: Positive for Other (she is on continuous oxygen therapy) Genitourinary: Positive for Other (patient does have incontinence and wears adult depends) Hematologic: Positive for Fatigue, Positive for Weakness Psychiatric: Depression Physical Exam Vital Signs Temperature: 96.8 Pulse: 95 BP Systolic: 126 BP Diastolic: 81 Respiratory Rate: 16 O2 SAT: 99 O2 Delivery: Height (inches) 62.50 Weight lb: 166 Weight oz: 8.0 Weight Kg (Clint): Pain: 4 ECOG Score: 2 General: Stable, Well Developed, Well Nourished, Not In Acute Distress HEENT: No Trauma, No Conjunctivitis, No Mucositis, No Oral Thrush Lungs: Clear to Auscultation Heart: Regular Rate, Regular Rhythm, No Gallops Abdomen: Soft and Nontender, No Hepatosplenomegaly, No Masses, Other (bowel sounds are active) Extremities: No Cyanosis, No Clubbing, No Edema Lymphadenopathy: No Cervical Psychiatric: Mood appears normal, Affect appears normal Skin: No Skin Rashes, No Bruising, No Purpura Diagnostic Studies Diagnostic Studies Laboratory Item Value Date Time White Blood Count 10.0 k/uL 03/30/17 0000 Red Blood Count 3.00 M/uL L 03/30/17 0000 Hemoglobin 9.8 g/dL L 03/30/17 Hematocrit 28.4 % L 03/30/17 Red Cell Distribution Width 18.0 % H 03/30/17 0000 Neutrophils (%) (Auto) 74.4 % H 03/30/17 0000 Lymphocytes (%) (Auto) 10.4 % L 03/30/17 0000 Basophils (%) (Auto) 0.9 % 03/30/17 0000 Neutrophils # (Auto) 7.4 K/uL 03/30/17 0000 Lymphocytes # (Auto) 1.0 K/uL L 03/30/17 0000 Monocytes # (Auto) 1.3 K/uL H 03/30/17 0000 Eosinophils # (Auto) 0.2 K/uL 03/30/17 0000 Basophils # (Auto) 0.1 K/uL 03/30/17 0000 Nucleated RBC Absolute Count (auto) 0.00 K/uL 03/30/17 0000 Sodium Level 133 mmol/L L 03/30/17 0000 Chloride Level 96 mmol/L L 03/30/17 0000 Blood Urea Nitrogen 21 mg/dl H 03/30/17 0000 Creatinine 1.20 mg/dl H 03/30/17 0000 Whole Blood Glucose 240 mg/DL H 03/16/17 1120 Random Glucose 129 mg/dl H 03/30/17 0000 CA 125 Antigen 358 U/mL H 02/25/17 1330 CA 19-9 Antigen 23 U/mL 06/04/16 1450 Carcinoembryonic Antigen 2.6 ng/mL 01/29/15 1245 Laboratory Tests 03/09/17 12:25 Laboratory Tests 02/25/17 13:30: CA 125 Antigen 358 02/25/17 14:35: Urine Color Yellow, Urine Clarity Slightly-cloudy, Urine pH 5.0, Urine Specific [place] 1.017, Urine Protein Negative, Urine Glucose (UA) 500, Urine Ketones Negative, Urine Blood Negative, Urine Nitrite Negative, Urine Bilirubin Negative , Urine Urobilinogen Negative, Urine Leukocyte Esterase Moderate, Urine RBC 3, Urine WBC 57, Urine WBC Clumps Few, Urine Squamous Epithelial Cells None, Urine Bacteria Moderate, Urine Mucus Few 03/09/17 12:25: White Blood Count 11.3, Red Blood Count 3.19, Hemoglobin 10.3, Hematocrit 30.5, Mean Corpuscular Volume 95.6, Mean Corpuscular Hemoglobin 32.2, Mean Corpuscular Hemoglobin Concent 33.7, Red Cell Distribution Width 16.2, Platelet Count 187, Mean Platelet Volume 8.0, Neutrophils (%) (Auto) 75.4, Lymphocytes (% ) (Auto) 7.1, Monocytes (%) (Auto) 16.0, Eosinophils (%) (Auto) 1.2, Basophils ( %) (Auto) 0.3, Nucleated RBC Relative Count (auto) 0.0, Neutrophils # (Auto) 8.5 , Lymphocytes # (Auto) 0.8, Monocytes # (Auto) 1.8, Eosinophils # (Auto) 0.1, Basophils # (Auto) 0.0, Nucleated RBC Absolute Count (auto) 0.00, Peripheral Blood Smear Yes, Sodium Level 135, Potassium Level 4.2, Chloride Level 96, Carbon Dioxide Level 28, Blood Urea Nitrogen 23, Creatinine 1.30, Glomerular Filtration Rate Calc 39.7, Random Glucose 247, Calcium Level 9.2, Total Bilirubin 0.7, Aspartate Amino Transf (AST/SGOT) 28, Alanine Aminotransferase ( ALT/SGPT) 33, Alkaline Phosphatase 131, Total Protein 6.8, Albumin 3.3 Microbiology Microbiology 02/25/17 Urine Culture - Final, Complete Enterococcus Faecalis (Grp D) Lactobacillus Assessment and Plan Assessment & Plan 1. Ovarian carcinoma with abdominal carcinomatosis. Patient is currently receiving Alimta cycle 4 today. She continues to have fatigue. She is currently residing at the [facility] and is receiving physical therapy and is improving in regards to strengthening. She tolerates treatment without difficulty other than minimal side effects of fatigue and occasional nausea. Patient has signed a do not resuscitate at the [facility]. She will continue with Alimta as she is having a good response with her tumor markers. We will see her every three weeks after chemotherapy with CBC, chem panel and CA -125. 2. History of right lower lobe pulmonary embolus. She is currently on Pradaxa 150 mg twice daily. 3. Neoplastic related fatigue and weakness. Continue physical therapy. 4. Hypothyroidism, on treatment. 5. Atrial fibrillation, on digoxin. PLAN 1. Chemotherapy with Avastin and Alimta as per schedule, cycle 4 today 2. CBC, chem panel, to be checked weekly. 3. Labs will be drawn weekly at [facility]. 4. Follow with provider with next treatment or sooner if indicated. 5. [facility] will be notified of her next treatment to be able to provide transportation. I previously have visited with care Center regarding safety features in handling bodily fluids 72 hours post chemotherapy and have faxed them written information regarding safety. I personally spent a total of 20 minutes. Of that 15 minutes was counseling/ coordination of patient's care. See my note above for details. GREGORY ARMSTRONG [employer], ONC Apr 02, 2017 10:02
[2017-04-02] MEDS: NS(*) 0.9% 100 ML BAG 100 ML IVPB PRN (10:11)
[2017-04-02] MEDS: HEPARIN FLSH (PORT) 500 UN/5ML IVP PRN (10:12)
[2017-04-02 10:17] VITALS: BP 144/66
[2017-04-10 10:43] VITALS: BP 125/78
[2017-04-15] VITALS (8 sets, daily range): BP systolic 131–156; BP diastolic 63–81
[2017-04-15] MEDS: HEPARIN FLSH (PORT) 500 UN/5ML IVP PRN (14:41)
[2017-04-23] MEDS: NS(*) 0.9% 100 ML BAG 100 ML IVPB PRN (08:45)
[2017-04-23] MEDS: LIDOCAINE/SOD BICARB 8.4% SYR ID PRN (08:45)
[2017-04-23 08:46] VITALS: BP 158/83
[2017-04-23] MEDS: PALONOSETRON 0.25 MG/5 ML VIAL IVP PRN (09:25)
--- NOTE | 2017-04-23 10:18 | ONC Progress Note - NP.Halsey ---
Patient History Date of Service Apr 23, 2017 Reason For Visit/HPI Patient is seen with her spouse in the clinic today for cycle 5 of Alimta chemotherapy for her ovarian carcinoma. Patient is currently residing in the [facility] to receive physical therapy for strengthening post hospital visit with urinary tract infection. Patient reports today that she is having increased shortness of breath and requiring more oxygen. She feels short of breath at rest. She has lower extremity bilateral edema in her feet. She is currently wearing compression stockings but is unable to wear any shoes. She denies any significant pain or tenderness in the lower extremities. She does have weakness and feels that her knees are locking. She is unable to stand without assistance. In addition she reports that she has edema in her hands and her face. She feels that she is constipated and reports that she has not had a bowel movement for 4 days. She has taken prune juice and laxatives. A phone call to the [facility] was completed and it is reported that she did have a bowel movement yesterday. Patient denies that she had a bowel movement yesterday. She reports that she is having right-sided flank pain. Symptoms started approximately 1 week ago. She denies any fever or chills but has generalized fatigue. Problem List (1) Ovarian carcinoma Oncology History The patient is a 76-year-old female with past medical history significant for atrial fibrillation, congestive heart failure, hypothyroidism. She presented in the hospital with ascites with probable metastatic ovarian cancer. The patient had CT of abdomen and pelvis done on January 25, 2015 which showed extensive peritoneal metastatic disease with no definite primary identified. There was moderate abdominopelvic ascites. There was a small bilateral pleural effusion with left posterior costophrenic space pleural nodularity concerning for metastatic disease. Tumor marker with CA was normal at 2.6. CA 19-9 was mildly elevated at 50, but CA-125 was 2847. Paracentesis done on February 07, 2015 and cytology came back positive for clusters of cells suspicious for adenocarcinoma. Genetic testing with BRCA1 and BRCA2 came back negative. The patient has been evaluated at the [facility] by Dr. Benz with recommendation of single agent chemotherapy with carboplatin The patient started chemotherapy with single agent carboplatin with AUC of 4 on March 12, 2015. She received six cycles between March 12, 2015 through July 25, 2015, and CA-125 on August 06, 2015 dropped to 420. She had progression of her disease and the patient has been evaluated again at [facility] with recommendation of putting her back on carboplatin, and the patient started that November 29, 2015 with gradual decline of her CA-125, which dropped from 1090 to 327. She actually stopped her treatment May 15, 2016 and at that time her CA-125 was 481. Her CA-125 started to increase from 609 to 1400. She was evaluated again at [facility] with recommendation of single-agent rucaparib, which was denied by her insurance. At that time after discussion with the patient she agreed to start treatment with Avastin and Alimta, and the patient started treatment on October 19, 2016. She tolerated treatment well but then developed a pulmonary embolism on 2016. Avastin was discontinued. Patient has continued treatment on single agent Alimta. Medical History Family History: FH: CHF (congestive heart failure) MOTHER FH: breast cancer MOTHER MATERNAL GRANDMOTHER FH: dementia FATHER FHx: anemia FHx: anemia FHx: anemia Unobtainable due to patient's condition FATHER MOTHER MATERNAL GRANDMOTHER CHILD, Age:55 CHILD, Age:50 Valvular heart disease MOTHER Psychosocial History Social History The patient is . She has 2 adult daughters. She has never smoked. She drinks alcohol occasionally. Smoking History: No Smoking Status: Never Smoker Exposure to Second Hand Smoke?: No Medications and Allergies Active Scripts Dexamethasone 4 Mg Tab (DEXAMETHASONE 4 MG TAB) 4 Mg Tab, 4 MG PO BID for before during and after chemo for 3 Days, #12 TAB 3 Refills Prov:AJ HERRERA MD 04/09/17 Dextroamphetamine Sulfate (DEXTROAMPHETAMINE SULFATE) 10 Mg Capsule.er, 10 MG PO QAM, #30 CAP 0 Refills Prov:AJ HERRERA MD 04/05/17 Dextroamphetamine Sulfate (DEXTROAMPHETAMINE SULFATE) 5 Mg Tablet, 5 MG PO BID, #60 TAB Prov:AJ HERRERA MD 04/05/17 Clotrimazole (CLOTRIMAZOLE) 10 Mg Troc, 10 MG MT 3-5 times daily Y for oral candidiasis, #30 Prov:CARLOTA CUNNINGHAM DO 03/07/17 Oxcarbazepine (OXCARBAZEPINE) 150 Mg Tablet, 1 TAB PO BID for to stabilize mood. , #180 TAB 3 Refills Prov:JOSHUA MCGILL APRN [employer] 1 [employer]RU 6 HOME TEACHER-C 02/22/17 Diltiazem Hcl (DILTIAZEM 24HR ER) 120 Mg Cap.er.24h, 120 MG PO QHS, #30 TAB Prov:MANISHA VÁZQUEZ MD 02/16/17 Diltiazem Hcl (CARDIZEM CD) 180 Mg Cap.er.24h, 180 MG PO QAM, #30 CAP 1 Refill Prov:MANISHA VÁZQUEZ MD 02/16/17 Metoprolol Tartrate (METOPROLOL TARTRATE) 50 Mg Tab, 1 TAB PO BID, #180 TAB 4 Refills Prov:MANISHA VÁZQUEZ MD 02/04/17 Nitroglycerin (NITROSTAT) 0.4 Mg Subl, 1 TAB SL Q5MIN, #[address] 1 tab under tongue at the 1st sign of chest pain; repeat every 5 min. Prov:JOSHUA MCGILL APRN [employer] 1 THRU 6 HOME TEACHER-C 11/20/16 Gabapentin (GABAPENTIN) 300 Mg Capsule, 300 MG PO QHS, #30 CAPSULE 11 Refills Prov:MANISHA VÁZQUEZ MD 10/16/16 Levothyroxine Sodium (LEVOTHYROXINE SODIUM) 100 Mcg Tablet, 100 MCG PO QDAY, # 90 TAB 4 Refills Prov:TIKA SCHAEFFER [facility], GR[employer] 1 THRU 6 HOME TEACHER- 10/14/16 Tiotropium Sentinel (SPIRIVA) 18 Mcg/Cap Inh, 18 MCG INH QDAY, #1 INH 11 Refills Prov:MANISHA VÁZQUEZ MD 09/11/16 Glimepiride (GLIMEPIRIDE) 2 Mg Tablet, 1 TAB PO QDAY, #30 TAB 5 Refills Prov:MANISHA VÁZQUEZ MD 09/04/16 Oxygen (OXYGEN) Inha, 3 L INH DIRECTED, #2 L Wear 3 L Nasal Canula during the day and continue same dose of oxgen at night. Pt. will need portable oxygen to leave the house. Prov:MANISHA VÁZQUEZ MD 03/13/16 Guinda-3 (FISH OIL 500 MG SOFTGEL) 500 Mg Cap, 1000 MG PO QDAY, #30 CAP Prov:YANELIS SO MD 02/27/15 Hypromellose (NATURAL BALANCE TEARS) 15 Ml Drop, 0 ML OU PRN Y for dry eyes, #1 BOTTLE Prov:YANELIS SO MD 02/27/15 Cyclosporine (RESTASIS) 1 Each Droperette, 1 EACH OU BID, #1 BOTTLE Prov:YANELIS SO MD 02/27/15 Reported Medications Acetaminophen (TYLENOL EXTRA STRENGTH) 500 Mg Tablet, 500 MG PO PRN, TAB 03/07/17 Polyethylene Glycol 3350 (MIRALAX) 17 Gm Powd.pack, 17 GM PO ONCE Y for BOWELS, PKT 03/07/17 Sennosides (SENNA) 8.6 Mg Tablet, 8.6 MG PO QPM 03/07/17 Lactobacillus Combination No.4 (PROBIOTIC) 1 Each Capsule, 1 EACH PO QAM, CAPSULE 03/07/17 Folic Acid (FOLIC ACID) 1 Mg Tablet, 1 MG PO QAM, TAB 03/07/17 Dabigatran Etexilate Mesylate (PRADAXA) 150 Mg Capsule, 150 MG PO BID, CAPSULE 02/02/17 Vit A,C & E/Lutein/Minerals (OCUVITE TABLET) 1 Each Tablet, 1 TAB PO QDAY 04/22/16 Cholecalciferol (Vitamin D3) (VITAMIN D3) 2,000 Unit Capsule, 2000 UNIT PO QDAY , CAPSULE 09/28/15 Allergies: Coded Allergies: tetanus toxoid, adsorbed (Verified Allergy, Severe, HIVES, 03/09/17) SHANNA Inhibitors (Verified Allergy, Mild, 03/09/17) Penicillins (Verified Allergy, Mild, SWELLING, 03/09/17) Sulfa (Sulfonamide Antibiotics) (Verified Allergy, Mild, RASH, 03/09/17) prednisone (Verified Allergy, Mild, Hallucinations, 03/09/17) modafinil (Verified Adverse Reaction, Severe, 03/09/17) Suicidal ideation Review of System/Physical Exam Review of Systems Constitutional: Positive for Appetite/Weight Change (reports weight gain thought to be due to fluid retention. Her mouth is dry and she is not eating well, decreased appetite), Positive for Recent Infection (patient has a history of long-standing urinary tract infections.) Cardiovascular: Positive for Edema (see above) Respiratory: Positive for Shortness of Breath, Positive for Wheezing Gastrointestinal: Nausea, Constipation, Other (right lateral flank pain) Genitourinary: Positive for Dysuria, Positive for Other (patient wears depends and is frequently incontinent) Endocrine: Positive for Diabetes Hematologic: Positive for Fatigue, Positive for Weakness Musculoskeletal: Positive for Muscle Pain (right lateral flank pain) Psychiatric: Depression Physical Exam Vital Signs Temperature: 96.2 Pulse: 91 BP Systolic: 158 BP Diastolic: 83 Respiratory Rate: 16 O2 SAT: 95 O2 Delivery: Height (inches) 62.50 Weight lb: 166 Weight oz: 8.0 Weight Kg (Clitn): Pain: 4 ECOG Score: 2 (Patient is wheelchair bound) General: Stable, Well Developed, Well Nourished, Not In Acute Distress HEENT: No Trauma, No Conjunctivitis, No Icterus, No Mucositis, No Oral Thrush Neck: Supple Lungs: Not Clear to Auscultation (bilateral wheezing in the lower extremities, decreased breath sounds in all clemons.) Heart: Regular Rate (blood pressure is elevated), Regular Rhythm, No Gallops, No Murmurs Abdomen: Soft and Nontender, No Hepatosplenomegaly, No Masses, Other (right flank area positive with palpation for pain) Extremities: No Cyanosis, Edema (patient is wearing compression stockings but has 2+ edema in the bilateral lower extremities, edema bilateral hands), Other ( no pain with movement of the feet, no pain with palpation over the lower extremities) Lymphadenopathy: No Cervical Psychiatric: Mood appears normal, Affect appears normal Skin: No Skin Rashes, No Bruising, No Purpura Diagnostic Studies Diagnostic Studies Laboratory Item Value Date Time Urine Glucose (UA) 150 mg/dL H 04/23/17 1000 Urine Leukocyte Esterase Large H 04/23/17 1000 Urine WBC 113 /HPF 04/23/17 1000 Urine Squamous Epithelial Cells Many /LPF H 04/23/17 1000 Urine Bacteria Few /HPF 04/23/17 1000 Urine Mucus None /HPF 04/23/17 1000 Urine Ketones Negative mg/dL 04/23/17 1000 Urine Blood Negative 04/23/17 1000 Urine Nitrite Negative 04/23/17 1000 Urine Bilirubin Negative 04/23/17 1000 Urine Urobilinogen Negative mg/dL 04/23/17 1000 Urine Protein Negative mg/dL 04/23/17 1000 Laboratory Tests 03/09/17 12:25 Laboratory Tests 02/25/17 14:35: Urine WBC Clumps Few 03/09/17 12:25: White Blood Count 11.3, Red Blood Count 3.19, Hemoglobin 10.3, Hematocrit 30.5, Mean Corpuscular Volume 95.6, Mean Corpuscular Hemoglobin 32.2, Mean Corpuscular Hemoglobin Concent 33.7, Red Cell Distribution Width 16.2, Platelet Count 187, Mean Platelet Volume 8.0, Neutrophils (%) (Auto) 75.4, Lymphocytes (% ) (Auto) 7.1, Monocytes (%) (Auto) 16.0, Eosinophils (%) (Auto) 1.2, Basophils ( %) (Auto) 0.3, Nucleated RBC Relative Count (auto) 0.0, Neutrophils # (Auto) 8.5 , Lymphocytes # (Auto) 0.8, Monocytes # (Auto) 1.8, Eosinophils # (Auto) 0.1, Basophils # (Auto) 0.0, Nucleated RBC Absolute Count (auto) 0.00, Peripheral Blood Smear Yes, Sodium Level 135, Potassium Level 4.2, Chloride Level 96, Carbon Dioxide Level 28, Blood Urea Nitrogen 23, Creatinine 1.30, Glomerular Filtration Rate Calc 39.7, Random Glucose 247, Calcium Level 9.2, Total Bilirubin 0.7, Aspartate Amino Transf (AST/SGOT) 28, Alanine Aminotransferase ( ALT/SGPT) 33, Alkaline Phosphatase 131, Total Protein 6.8, Albumin 3.3 04/23/17 09:22: 04/23/17 10:00: Radiology COMPARISON: Chest radiograph of March 09, 2017. INDICATION: Shortness of breath. TECHNIQUE: Contrast enhanced chest CT performed during the injection of 75 ml of Isovue-370. Threedimensional (MIP) reconstructions were performed. FINDINGS: There is no pulmonary arterial filling defect. The central pulmonary arteries are mildly enlarged. Small right greater than left pleural effusions with adjacent atelectasis. Subtle mosaic attenuation in the lung parenchyma may [facility] [address] [place], [place] [address] be from air trapping or incomplete inspiration. There is trace fluid in the major fissures. The central airways appear patent. Thyroid: Incompletely imaged. Thoracic inlet: Small thoracic inlet lymph nodes. Heart and great vessels: Heart size is at the upper limits of normal. There is dense mitral calcification. Some coronary atherosclerosis and calcification in the region of the aortic annulus is also noted. Moderate aortic arch atherosclerosis. Mediastinum and aurora: A calcified hilar lymph node may reflect an old granulomatous process. Lungs and pleura: As above. Breast and axilla: Unremarkable by CT. Bones and soft tissues: No acute osseous abnormality. Diffusely decreased bone density. Multilevel degenerative findings in the thoracic spine. A right chest port is noted with tip terminating near the cavoatrial junction. Upper abdomen: Scattered calcifications in the spleen likely reflect old granulomatous process. IMPRESSION: 1. Negative for pulmonary arterial bolus. 2. Small right greater than left pleural effusions. 3. Chronic findings as above. Microbiology Microbiology 02/25/17 Urine Culture - Final, Complete Enterococcus Faecalis (Grp D) Lactobacillus Assessment and Plan Assessment & Plan 1. Ovarian carcinoma with abdominal carcinomatosis. Patient is currently receiving Alimta cycle 5 today. She continues to have fatigue and weakness.. She is currently residing at the [facility] and is receiving physical therapy for strengthening. She has increased symptoms today of shortness of breath requiring and increased oxygen demand, she has bilateral edema in her hands and feet and reported weight gain. She reports that she has increased frequency of urination and right flank pain. She has tolerated chemotherapy treatment without difficulty other than minimal side effects of fatigue and occasional nausea. Patient has signed a do not resuscitate at the [facility] after discussion with Dr. Herrera. We will see her every three weeks after chemotherapy with CBC, chem panel and CA-125. 2. History of right lower lobe pulmonary embolus. She is currently on Pradaxa 150 mg twice daily. Shortness of breath and wheezing on exam today. CTA - stable from previous. 3. Fatigue and weakness. Continue physical therapy. 4. Hypothyroidism, on treatment, managed through primary . 5. Atrial fibrillation, on digoxin. 6. UA cath today has positive WBC- discussion with Dr. Herrera regarding care. She will wait for culture and treat appropriately. PLAN 1. Chemotherapy with Alimta as per schedule, cycle 5 today 2. CBC, chem panel, to be checked weekly. 3. Labs will be drawn weekly at [facility]. 4. Follow with provider with next treatment or sooner if indicated. 5. [facility] hasl be notified of safety features in handling bodily fluids 72 hours post chemotherapy. I personally spent a total of 35 minutes. Of that 25 minutes was counseling/ coordination of patient's care. See my note above for details. Copies to: AJ HERRERA MD, NANCY J GRADES 1 THRU 6 HOME TEACHER-BC, ONC Apr 23, 2017 10:18
--- NOTE | 2017-04-23 12:32 | RADIOLOGY IMAGING REPORT ---
FACILITY: [facility] [place] PATIENT NAME: El Hastings : 1940 MR: [id number] V: [id number] EXAM DATE: ORDERING PHYSICIAN: SADIE ROMERO TECHNOLOGIST: Location: [facility] - [place], [place] Patient: El Hastings : 1940 Visit/Account:[id number] Date of Sevice: 04/23/2017 CT ANGIOGRAM OF THE CHEST WITH INTRAVENOUS CONTRAST, PE PROTOCOL DATE OF EXAM: 04/23/2017 12:00 COMPARISON: Chest radiograph of March 09, 2017. INDICATION: Shortness of breath. TECHNIQUE: Contrast enhanced chest CT performed during the injection of 75 ml of Isovue-370. Three-d imensional (MIP) reconstructions were performed. FINDINGS: There is no pulmonary arterial filling defect. The central pulmonary arteries are mildly enlarged. Sm all right greater than left pleural effusions with adjacent atelectasis. Subtle mosaic attenuation in the lung parenchyma may be from air trapping or incomplete inspiration. There is trace fluid in the major fissures. The central airways appear patent. Thyroid: Incompletely imaged. Thoracic inlet: Small thoracic inlet lymph nodes. Heart and great vessels: Heart size is at the upper limits of normal. There is dense mitral calcific ation. Some coronary atherosclerosis and calcification in the region of the aortic annulus is also no leatha. Moderate aortic arch atherosclerosis. Mediastinum and aurora: A calcified hilar lymph node may reflect an old granulomatous process. Lungs and pleura: As above. Breast and axilla: Unremarkable by CT. Bones and soft tissues: No acute osseous abnormality. Diffusely decreased bone density. Multilevel d egenerative findings in the thoracic spine. A right chest port is noted with tip terminating near the cavoatrial junction. Upper abdomen: Scattered calcifications in the spleen likely reflect old granulomatous process. IMPRESSION: 1. Negative for pulmonary arterial bolus. 2. Small right greater than left pleural effusions. 3. Chronic findings as above. One of the following dose optimization techniques was utilized in the performance of this exam: Autom ated exposure control; adjustment of the mA and/or kV according to the patient's size; or use of an i terative reconstruction technique. Specific details can be referenced in the facility's radiology C T exam operational policy. Report Dictated By: Clemente Griffin MD at 04/23/2017 12:21 PM Report E-Signed By: Clemente Griffin MD at 04/23/2017 12:28 PM [id number]
[2017-04-23] MEDS: HEPARIN FLSH (PORT) 500 UN/5ML IVP PRN (13:00)
[2017-04-23] MEDS: CYANOCOBALAMIN 1000MCG/ML VIAL IM ONLY PRN (13:21)
[2017-04-23 13:30] VITALS: BP 152/82
[2017-05-06 13:31] VITALS: BP 148/71
[2017-05-06 14:21] LABS: PLATELET COUNT, AUTOMATED 168 K/uL (150-450)
[2017-05-07 08:41] VITALS: Ht 158.8 cm; Wt 75.4 kg
[2017-05-13 12:59] VITALS: BP 143/64
[2017-05-13] MEDS: NS(*) 0.9% 100 ML BAG 100 ML IVPB PRN (13:24)
[2017-05-13] MEDS: LIDOCAINE/SOD BICARB 8.4% SYR ID PRN (13:24)
[2017-05-13] MEDS: HEPARIN FLSH (PORT) 500 UN/5ML IVP PRN (15:49)
[~2017-05-20] VITALS: Ht 158.8 cm; Wt 75.4 kg
[~2017-05-20 13:08] MED LIST changes: +ACETAMINOPHEN 325 MG TAB PO ONE; +ACETAMINOPHEN 325 MG TAB PO PRN; +ALTEPLASE RECOMB 2 MG VIAL IVP PRN; +DEXTROSE 5%(*) 100 ML BAG 100 ML IVPB PRN; +IOPAMIDOL 76% 75 ML INFUS BTL 75 ML ONE; +NS(*) 0.9% 500 ML BAG 500 ML IV PRN; +OMEP-137 PO; +PEMETREXED DISOD IVPB ONE; +RANI-324 PO; +WATER STERILE 10 ML VIAL IVP PRN; +[UNRECOGNIZED DRUG - OTHER] IVPB ONE; +diphenhydrAMINE 25 MG CAP PO ONE; +diphenhydrAMINE 25 MG CAP PO PRN
[2017-05-20 13:16] VITALS: BP 135/63
[2017-05-20 13:28] LABS: PLATELET COUNT, AUTOMATED 377 K/uL (150-450)
[2017-05-20] MEDS: HEPARIN FLSH (PORT) 500 UN/5ML IVP PRN (13:34)
[2017-05-20] MEDS: LIDOCAINE/SOD BICARB 8.4% SYR ID PRN (13:34)
[2017-05-20] MEDS ORDERED: ESCI20TA38 PO (14:44)
[2017-05-20] MEDS ORDERED: MIRT-22 PO (14:45)
[2017-05-20] MEDS ORDERED: ESOM40CA42 PO (14:52)
[2017-05-20] MEDS ORDERED: FLUT1DIS28 IH (14:52)
[2017-05-20] MEDS ORDERED: CLON-388 PO (14:56)
[2017-05-20] MEDS ORDERED: CLON-298 PO (14:56)
[2017-05-20] MEDS ORDERED: TIO18R INH (14:56)
[2017-05-24] MEDS ORDERED: GLIM2TAB43 PO (11:58)
[2017-05-24] MEDS ORDERED: DEXT5TAB PO (13:04)
[2017-05-25] MEDS ORDERED: NITR50CA35 PO (20:22)
[2017-05-26] MEDS ORDERED: NITR50CA35 PO (15:01)
== END 2017-05-25 ==
LOC: SPU 13:08
PROVIDERS: ATTEND Internal Medicine Hematology
DX: Z51.11 Encounter for antineoplastic chemotherapy (principal); C56.9 Malignant neoplasm of unspecified ovary; R97.8 Other abnormal tumor markers; N39.0 Urinary tract infection, site not specified; R53.0 Neoplastic (malignant) related fatigue; R53.1 Weakness; E03.9 Hypothyroidism, unspecified; I48.91 Unspecified atrial fibrillation; Z79.899 Other long term (current) drug therapy; B95.2 Enterococcus as the cause of diseases classified elsewhere; B96.89 Other specified bacterial agents as the cause of diseases classified elsewhere; J90 Pleural effusion, not elsewhere classified; J98.11 Atelectasis
CPT/HCPCS: 36591; 51701; 71275; 81001; 85025; 85027; 86304; 87077; 87088; 87186; 96360; 96361; 96372; 96375; 96409; 96413; A9270; J1642; J2469; J3420; J7050; J9305; P9016; Q0163; Q9967; 36415; 36430; 82040; 82247; 82310; 82374; 82435; 82565; 82947; 84075; 84132; 84155; 84295; 84450; 84460; 84520; 86850; 86900; 86901; 86920

== ENCOUNTER 2017-05-23 15:43 | Emergency (ER) | payer MEDICARE, OTHER ==
[2017-05-07 08:41] VITALS: Wt 74.2 kg
[~2017-05-23 15:43] MED LIST changes: -NITR50CA35 PO
[2017-05-23] MEDS ORDERED: MORPHINE 2 MG/ML SYR IVP ONE (16:10)
--- NOTE | 2017-05-23 16:22 | ER Report ---
History and Physical Time Seen By MD: 15:59 Hx. of Stated Complaint: UPPER CHEST PAIN WORSENED WITH BREATHING. HPI/ROS CHIEF COMPLAINT: Upper chest pain HISTORY OF PRESENT ILLNESS: PT states she has pain in her upper chest that started at 10am today. Pain is sharp and worse with breathing. PT denies nausea or vomtiing. no cough or fevers. PT states pain is constant . PT also feels sob with the pain. REVIEW OF SYSTEMS: Constitutional: No fever, no chills. Eyes: No discharge. ENT: No sore throat. Cardiovascular: + chest pain, no palpitations. Respiratory: No cough, no shortness of breath. Gastrointestinal: No abdominal pain, no vomiting. Genitourinary: No hematuria. Musculoskeletal: No back pain. Skin: No rashes. Neurological: No headache. Allergies: Coded Allergies: tetanus toxoid, adsorbed (Verified Allergy, Severe, HIVES, 03/09/17) SHANNA Inhibitors (Verified Allergy, Mild, 03/09/17) Penicillins (Verified Allergy, Mild, SWELLING, 03/09/17) Sulfa (Sulfonamide Antibiotics) (Verified Allergy, Mild, RASH, 03/09/17) prednisone (Verified Allergy, Mild, Hallucinations, 03/09/17) modafinil (Verified Adverse Reaction, Severe, 03/09/17) Suicidal ideation Home Meds Active Scripts Dextroamphetamine Sulfate (DEXTROAMPHETAMINE SULFATE) 5 Mg Tablet, 5 MG PO BID, #60 TAB Prov:MANISHA VÁZQUEZ MD 05/24/17 Glimepiride (GLIMEPIRIDE) 2 Mg Tablet, 1 TAB PO QDAY, #90 TAB 3 Refills Prov:MANISHA VÁZQUEZ MD 05/24/17 Clonazepam (CLONAZEPAM) 0.5 Mg Tab.rapdis, 0.5 MG PO BID, #60 TAB 5 Refills Prov:MANISHA VÁZQUEZ MD 05/20/17 Tiotropium [place] (SPIRIVA) 18 Mcg/Cap Inh, 18 MCG INH QDAY, #3 INH 3 Refills Prov:MANISHA VÁZQUEZ MD 05/20/17 Fluticasone/Salmeterol (ADVAIR 250-50 DISKUS) 1 Each Disk.w.dev, 1 EACH IH BID, #3 MISC 3 Refills Prov:MANISHA VÁZQUEZ MD 3/15/18 Esomeprazole Magnesium (NEXIUM) 40 Mg Capsule.dr, 1 CAP PO QDAY, #90 CAP 3 Refills Prov:MANISHA VÁZQUEZ MD 05/20/17 Mirtazapine (MIRTAZAPINE) 15 Mg Tablet, 15 MG PO QHS, #90 TAB 3 Refills Prov:MANISHA VÁZQUEZ MD 05/20/17 Escitalopram Oxalate (LEXAPRO) 20 Mg Tablet, 1.5 TAB PO QDAY, #135 TAB 3 Refills Prov:MANISHA VÁZQUEZ MD 05/20/17 Dextroamphetamine Sulfate (DEXTROAMPHETAMINE SULFATE) 10 Mg Capsule.er, 10 MG PO QAM, #30 CAP 0 Refills Prov:AJ HERRERA MD 04/05/17 Oxcarbazepine (OXCARBAZEPINE) 150 Mg Tablet, 1 TAB PO BID for to stabilize mood. , #180 TAB 3 Refills Prov:JOSHUA MCGILL APRN FREIGHT BROKER AGENT-C 02/22/17 Diltiazem Hcl (DILTIAZEM 24HR ER) 120 Mg Cap.er.24h, 120 MG PO QHS, #30 TAB Prov:MANISHA VÁZQUEZ MD 02/16/17 Diltiazem Hcl (CARDIZEM CD) 180 Mg Cap.er.24h, 180 MG PO QAM, #30 CAP 1 Refill Prov:MANISHA VÁZQUEZ MD 02/16/17 Metoprolol Tartrate (METOPROLOL TARTRATE) 50 Mg Tab, 1 TAB PO BID, #180 TAB 4 Refills Prov:MANISHA VÁZQUEZ MD 02/04/17 Nitroglycerin (NITROSTAT) 0.4 Mg Subl, 1 TAB SL Q5MIN, #[address] 1 tab under tongue at the 1st sign of chest pain; repeat every 5 min. Prov:JOSHUA MCGILL APRN [employer]OK[employer] AGENT-C 11/20/16 Gabapentin (GABAPENTIN) 300 Mg Capsule, 300 MG PO QHS, #30 CAPSULE 11 Refills Prov:MANISHA VÁZQUEZ MD 10/16/16 Levothyroxine Sodium (LEVOTHYROXINE SODIUM) 100 Mcg Tablet, 100 MCG PO QDAY, # 90 TAB 4 Refills Prov:TIKA SCHAEFFER DNP, [employer] AGENT-BC 10/14/16 Oxygen (OXYGEN) Inha, 3 L INH DIRECTED, #2 L Wear 3 L Nasal Canula during the day and continue same dose of oxgen at night. Pt. will need portable oxygen to leave the house. Prov:MANISHA VÁZQUEZ MD 03/13/16 [place]-3 (FISH OIL 500 MG SOFTGEL) 500 Mg Cap, 1000 MG PO QDAY, #30 CAP Prov:YANELIS SO MD 02/27/15 Cyclosporine (RESTASIS) 1 Each Droperette, 1 EACH OU BID, #1 BOTTLE Prov:YANELIS SO MD 02/27/15 Reported Medications Nitrofurantoin Macrocrystal (NITROFURANTOIN) 50 Mg Capsule, 50 MG PO BID, CAPSULE 05/26/17 Promethazine Hcl (PROMETHAZINE HCL) 25 Mg Tablet, 25 MG PO PRN, TAB PRN every 8 hours 05/06/17 Sennosides (SENNA) 8.6 Mg Tablet, 8.6 MG PO QPM 03/07/17 Lactobacillus Combination No.4 (PROBIOTIC) 1 Each Capsule, 1 EACH PO QAM, CAPSULE 03/07/17 Folic Acid (FOLIC ACID) 1 Mg Tablet, 1 MG PO QAM, TAB 03/07/17 Dabigatran Etexilate Mesylate (PRADAXA) 150 Mg Capsule, 150 MG PO BID, CAPSULE 02/02/17 Cholecalciferol (Vitamin D3) (VITAMIN D3) 2,000 Unit Capsule, 2000 UNIT PO QDAY , CAPSULE 09/28/15 Discontinued Reported Medications Ranitidine Hcl (ZANTAC) 150 Mg Tablet, 75 MG PO QDAY, TAB 05/06/17 Acetaminophen (TYLENOL EXTRA STRENGTH) 500 Mg Tablet, 500 MG PO PRN, TAB 03/07/17 Polyethylene Glycol 3350 (MIRALAX) 17 Gm Powd.pack, 17 GM PO ONCE Y for BOWELS, PKT 03/07/17 Vit A,C & E/Lutein/Minerals (OCUVITE TABLET) 1 Each Tablet, 1 TAB PO QDAY 04/22/16 Discontinued Scripts Dexamethasone 4 Mg Tab (DEXAMETHASONE 4 MG TAB) 4 Mg Tab, 4 MG PO BID for before during and after chemo for 3 Days, #12 TAB 3 Refills Prov:AJ HERRERA MD 04/09/17 Hypromellose (NATURAL BALANCE TEARS) 15 Ml Drop, 0 ML OU PRN Y for dry eyes, #1 BOTTLE Prov:YANELIS SO MD 02/27/15 Past Medical/Surgical History Pmhx: ovariacn ca stage 4, afib, chf, htn, asthma, gerd, depresion, dm, hypothyroid Hx Smoking: No Smoking Status: Never Smoker Exposure to Second Hand Smoke?: No Hx Substance Use Disorder: No (Used Darvocet for pain for 25 years) Hx Alcohol Use: No Constitutional Vital Sign - Last 24 Hours 05/23/17 05/23/17 05/23/17 05/23/17 15:45 16:00 16:17 16:27 Temp 98.8 Pulse 109 110 Resp 16 22 B/P (MAP) 128/83 131/67 (88) Pulse Ox 95 96 O2 Delivery Nasal Cannula O2 Flow Rate 3.0 05/23/17 05/23/17 05/23/17 05/23/17 16:30 17:00 17:30 18:00 Pulse 114 103 102 108 Resp 21 18 19 15 B/P (MAP) 122/95 (104) 128/69 (88) 115/70 (85) 111/73 (86) Pulse Ox 96 97 99 93 05/23/17 05/23/17 18:30 19:00 Pulse 105 107 Resp 20 16 B/P (MAP) 134/72 (92) 123/80 (94) Pulse Ox 95 96 Physical Exam General Appearance: The patient is alert, has no immediate need for airway protection and no signs of toxicity. Eyes: Pupils equal and round no pallor or injection, EOMI ENT: no pharyngeal erythema or exudates, Mucous membranes are moist, TM are nl b/l Respiratory: There are no retractions, lungs are clear to auscultation. Cardiovascular: Regular rate and rhythm. pulses are equal and symmetrical Gastrointestinal: Abdomen is soft and non tender, no masses, bowel sounds normal, no guarding, no rigidity or rebound Neurological: Cranial nerves II-XII grossly intact, no sensory or motor loss Skin: Warm and dry, no rashes. Musculoskeletal: Neck is supple non tender, no vertebral tenderness Extremities are nontender, nonswollen and have full range of motion. DIFFERENTIAL DIAGNOSIS: After history and physical exam differential diagnosis was considered for pneumonia, pleurisy, pe, cardiac Medical Decision Making Data Points Result Diagram: 05/23/17 1615 05/23/17 1615 Laboratory Hematology Test 05/23/17 16:15 05/23/17 18:10 Red Blood Count 2.71 M/uL (4.17-5.56) Mean Corpuscular Volume 100.9 fL (80.0-96.0) Mean Corpuscular Hemoglobin 34.6 pg (26.0-33.0) Mean Corpuscular Hemoglobin Concent 34.3 g/dL (32.0-36.0) Red Cell Distribution Width 20.9 % (11.5-14.5) Mean Platelet Volume 6.8 fL (7.2-11.1) Neutrophils (%) (Auto) 81.9 % (39.4-72.5) Lymphocytes (%) (Auto) 3.6 % (17.6-49.6) Monocytes (%) (Auto) 13.5 % (4.1-12.4) Eosinophils (%) (Auto) 0.5 % (0.4-6.7) Basophils (%) (Auto) 0.5 % (0.3-1.4) Nucleated RBC Relative Count (auto) 0.0 /100WBC Neutrophils # (Auto) 15.3 K/uL (2.0-7.4) Lymphocytes # (Auto) 0.7 K/uL (1.3-3.6) Monocytes # (Auto) 2.5 K/uL (0.3-1.0) Eosinophils # (Auto) 0.1 K/uL (0.0-0.5) Basophils # (Auto) 0.1 K/uL (0.0-0.1) Nucleated RBC Absolute Count (auto) 0.00 K/uL Prothrombin Time 19.1 seconds (12.0-14.4) Prothromb Time International Ratio 1.57 Activated Partial Thromboplast Time 82 seconds (23-35) Sodium Level 132 mmol/L (137-145) Potassium Level 3.9 mmol/L (3.5-5.0) Chloride Level 92 mmol/L (98-107) Carbon Dioxide Level 31 mmol/L (22-31) Blood Urea Nitrogen 30 mg/dl (7-18) Creatinine 1.40 mg/dl (0.52-1.04) Glomerular Filtration Rate Calc 36.4 Random Glucose 227 mg/dl (75-110) Calcium Level 8.8 mg/dl (8.4-10.2) Total Bilirubin 0.3 mg/dl (0.2-1.3) Aspartate Amino Transf (AST/SGOT) 29 U/L (0-35) Alanine Aminotransferase (ALT/SGPT) 33 U/L (0-56) Alkaline Phosphatase 136 U/L (0-126) Troponin I < 0.012 ng/ml Total Protein 6.6 gm/dl (6.3-8.2) Albumin 3.0 g/dl (3.5-5.0) Urine Color Yellow Urine Clarity Clear Urine pH 7.0 pH (4.8-9.5) Urine Specific [place] 1.011 Urine Protein Negative mg/dL (NEGATIVE) Urine Glucose (UA) 50 mg/dL (NEGATIVE) Urine Ketones Negative mg/dL (NEGATIVE) Urine Blood Negative (NEGATIVE) Urine Nitrite Negative (NEGATIVE) Urine Bilirubin Negative (NEGATIVE) Urine Urobilinogen Negative mg/dL (0.2-1.9) Urine Leukocyte Esterase Small (NEGATIVE) Urine RBC 1 /HPF (0-2/HPF) Urine WBC 5 /HPF (0-5/HPF) Urine Squamous Epithelial Cells Few /LPF (NONE-FEW) Urine Transitional Epithelial Cells Few /LPF (NONE-FEW) Urine Bacteria Negative /HPF (NONE-FEW) Urine Mucus None /HPF (NONE-FEW) B-Type Natriuretic Peptide 819 pg/ml (0-100) Influenza Virus Type A (PCR) Negative (NEGATIVE) Influenza Virus Type B (PCR) Negative (NEGATIVE) Chemistry Test 05/23/17 16:15 05/23/17 18:10 White Blood Count 18.7 k/uL (4.5-11.0) Red Blood Count 2.71 M/uL (4.17-5.56) Hemoglobin 9.4 g/dL (12.0-16.0) Hematocrit 27.4 % (34.0-47.0) Mean Corpuscular Volume 100.9 fL (80.0-96.0) Mean Corpuscular Hemoglobin 34.6 pg (26.0-33.0) Mean Corpuscular Hemoglobin Concent 34.3 g/dL (32.0-36.0) Red Cell Distribution Width 20.9 % (11.5-14.5) Platelet Count 243 K/uL (150-450) Mean Platelet Volume 6.8 fL (7.2-11.1) Neutrophils (%) (Auto) 81.9 % (39.4-72.5) Lymphocytes (%) (Auto) 3.6 % (17.6-49.6) Monocytes (%) (Auto) 13.5 % (4.1-12.4) Eosinophils (%) (Auto) 0.5 % (0.4-6.7) Basophils (%) (Auto) 0.5 % (0.3-1.4) Nucleated RBC Relative Count (auto) 0.0 /100WBC Neutrophils # (Auto) 15.3 K/uL (2.0-7.4) Lymphocytes # (Auto) 0.7 K/uL (1.3-3.6) Monocytes # (Auto) 2.5 K/uL (0.3-1.0) Eosinophils # (Auto) 0.1 K/uL (0.0-0.5) Basophils # (Auto) 0.1 K/uL (0.0-0.1) Nucleated RBC Absolute Count (auto) 0.00 K/uL Prothrombin Time 19.1 seconds (12.0-14.4) Prothromb Time International Ratio 1.57 Activated Partial Thromboplast Time 82 seconds (23-35) Glomerular Filtration Rate Calc 36.4 Calcium Level 8.8 mg/dl (8.4-10.2) Total Bilirubin 0.3 mg/dl (0.2-1.3) Aspartate Amino Transf (AST/SGOT) 29 U/L (0-35) Alanine Aminotransferase (ALT/SGPT) 33 U/L (0-56) Alkaline Phosphatase 136 U/L (0-126) Troponin I < 0.012 ng/ml Total Protein 6.6 gm/dl (6.3-8.2) Albumin 3.0 g/dl (3.5-5.0) Urine Color Yellow Urine Clarity Clear Urine pH 7.0 pH (4.8-9.5) Urine Specific [place] 1.011 Urine Protein Negative mg/dL (NEGATIVE) Urine Glucose (UA) 50 mg/dL (NEGATIVE) Urine Ketones Negative mg/dL (NEGATIVE) Urine Blood Negative (NEGATIVE) Urine Nitrite Negative (NEGATIVE) Urine Bilirubin Negative (NEGATIVE) Urine Urobilinogen Negative mg/dL (0.2-1.9) Urine Leukocyte Esterase Small (NEGATIVE) Urine RBC 1 /HPF (0-2/HPF) Urine WBC 5 /HPF (0-5/HPF) Urine Squamous Epithelial Cells Few /LPF (NONE-FEW) Urine Transitional Epithelial Cells Few /LPF (NONE-FEW) Urine Bacteria Negative /HPF (NONE-FEW) Urine Mucus None /HPF (NONE-FEW) B-Type Natriuretic Peptide 819 pg/ml (0-100) Influenza Virus Type A (PCR) Negative (NEGATIVE) Influenza Virus Type B (PCR) Negative (NEGATIVE) Coagulation Test 05/23/17 16:15 Prothrombin Time 19.1 seconds Prothromb Time International Ratio 1.57 Activated Partial Thromboplast Time 82 seconds Urinalysis Test 05/23/17 18:10 Urine Color Yellow Urine Clarity Clear Urine pH 7.0 pH (4.8-9.5) Urine Specific [place] 1.011 Urine Protein Negative mg/dL (NEGATIVE) Urine Glucose (UA) 50 mg/dL (NEGATIVE) Urine Ketones Negative mg/dL (NEGATIVE) Urine Blood Negative (NEGATIVE) Urine Nitrite Negative (NEGATIVE) Urine Bilirubin Negative (NEGATIVE) Urine Urobilinogen Negative mg/dL (0.2-1.9) Urine Leukocyte Esterase Small (NEGATIVE) Urine RBC 1 /HPF (0-2/HPF) Urine WBC 5 /HPF (0-5/HPF) Urine Squamous Epithelial Cells Few /LPF (NONE-FEW) Urine Transitional Epithelial Cells Few /LPF (NONE-FEW) Urine Bacteria Negative /HPF (NONE-FEW) Urine Mucus None /HPF (NONE-FEW) Microbiology Microbiology Date/Time Source Procedure Growth Status 05/23/17 18:10 Cath Urine Urine Culture - Final NO GROWTH AFTER 2 DAYS Complete EKG/Imaging EKG Interpretation afib @ [address] wave chantes. Imaging no infitrate noted ED Course/Re-evaluation ED Course 05/23/2017 6:02:[address] Rolon, cushion padder. Pt does not have mi or pneumonia. I am unable to obtain a VQ until Wednesday and can not get a CT due to pts renal function. Did not test d-dimer due to pt has hx of it being positive. Dr. Rolon feels it is less likely PE due to pt is on pradaxa. After speaking with pts and her they would not want to be changed to any other anticoagulant due to pt has hx of bleed on anticoagulants and pradaxa is reverible. Pt feeling some improvement with morphine. Pt does have an elevated white count and would like for a urine to be checked. PT did just finish abx for UTI and is to see urology. Pt has missed her last few chemo due to prior uti. feels he can take pt home and is going home to obtain the portable oxygen (pt on 3 liters chronicallly) and her wheel chair. will cath pt for urine while he is getting her belongings. PT signed out to Dr. Appiah pending Urine and influenza. Decision to Disposition Date: May 23, 2017 Decision to Disposition Time: 19:10 Depart Departure Latest Vital Signs Vital Signs Date Time Temp Pulse Resp B/P (MAP) Pulse Ox O2 Delivery O2 Flow Rate FiO2 05/23/17 19:00 107 16 123/80 (94) 96 05/23/17 16:27 3.0 05/23/17 15:45 98.8 Nasal Cannula Impression: Primary Impression: Chest pain of uncertain etiology Referrals: AJ HERRERA MD (PCP) JERRICA JON DO May 23, 2017 16:21
[2017-05-23 16:24] LABS: PLATELET COUNT, AUTOMATED 243 K/uL (150-450)
[2017-05-23] MEDS ORDERED: NS(*) 0.9% 500 ML BAG 500 ML IV ONE (16:30)
[2017-05-23 16:35] LABS: INR 1.57
--- NOTE | 2017-05-23 16:35 | EKG ---
FACILITY: [facility] [place] PATIENT NAME: PEGGY LOZOYA : [id number] MR: [id number] V: [id number] EXAM DATE: ORDERING PHYSICIAN: JERRICA JON TECHNOLOGIST: KERON Juarez Reason : CHEST PAIN Blood Pressure : / mmHG Vent. Rate : 101 BPM Atrial Rate : 088 BPM P-R Int : 000 ms QRS Dur : 098 ms QT Int : 380 ms P-R-T Axes : 000 042 084 degrees QTc Int : 492 ms Atrial fibrillation Abnormal ECG No previous ECGs available Confirmed by YARELIS VAZ ([id number]) on 05/24/2017 6:35:12 AM Referred By: Confirmed By:YARELIS VAZ
--- NOTE | 2017-05-23 17:14 | RADIOLOGY IMAGING REPORT ---
FACILITY: [facility] PATIENT NAME: El Hastings : 1940 MR: [id number] V: [id number] EXAM DATE: ORDERING PHYSICIAN: JERRICA JON TECHNOLOGIST: Location: [facility] [place] Patient: El Hastings : 1940 Visit/Account:[id number] Date of Sevice: 05/23/2017 CHEST SINGLE AP Indication: Neck and chest pain.. Comparison: 03/09/2017. Findings: Cardiac silhouette remains enlarged but unchanged. Mediastinal silhouette and pulmonary vessels withi n normal limits. Port-A-Cath is in place with tip in SVC and unchanged. Improved aeration to the right lower lobe. The lungs show chronic interstitial changes without focal area of consolidation. No pneumothorax or pleural effusion. No nodule. Upper abdomen is unremarkable. No acute bony abnormality. IMPRESSION: 1. Stable enlarged cardiac silhouette without indication of edema or infiltrate. Report Dictated By: Jony Perez at 05/23/2017 5:09 PM Report E-Signed By: Jony Perez at 05/23/2017 5:10 PM WSN:[id number]
[2017-05-23] MEDS ORDERED: HEPARIN FLSH (PORT) 500 UN/5ML ONE (18:24)
[2017-05-23 19:00] VITALS: BP 123/80
[2017-05-24] MEDS ORDERED: GLIM2TAB43 PO (11:58)
[2017-05-24] MEDS ORDERED: DEXT5TAB PO (13:04)
== END 2017-05-23 19:22 | disposition home or self-care (01) ==
LOC: ER 15:51
DX: R07.89 Other chest pain (principal); R79.89 Other specified abnormal findings of blood chemistry; E03.9 Hypothyroidism, unspecified; Z79.01 Long term (current) use of anticoagulants; Z79.899 Other long term (current) drug therapy
CPT/HCPCS: 71045; 81001; 83880; 84484; 85025; 85610; 85730; 87088; 87502; 93005; 96361; 96374; 99284; A4353; J1642; J2270; J7040; 82040; 82247; 82310; 82374; 82435; 82565; 82947; 84075; 84132; 84155; 84295; 84450; 84460; 84520

== ENCOUNTER → 2017-05-23 | Outpatient (CLI) | payer OTHER, MEDICARE ==
[2017-05-07 08:41] VITALS: BMI 28.0
[~2017-05-23] MED LIST changes: -ACETAMINOPHEN 325 MG TAB PO ONE; -ACETAMINOPHEN 325 MG TAB PO PRN; -ALTEPLASE RECOMB 2 MG VIAL IVP PRN; +CLON-298 PO; +CLON-388 PO; -DEXTROSE 5%(*) 100 ML BAG 100 ML IVPB PRN; -IOPAMIDOL 76% 75 ML INFUS BTL 75 ML ONE; +NITR50CA35 PO; -NS(*) 0.9% 500 ML BAG 500 ML IV PRN; -PEMETREXED DISOD IVPB ONE; -WATER STERILE 10 ML VIAL IVP PRN; -[UNRECOGNIZED DRUG - OTHER] IVPB ONE; -diphenhydrAMINE 25 MG CAP PO ONE; -diphenhydrAMINE 25 MG CAP PO PRN
== END ==
LOC: AMB 15:19
PROVIDERS: ATTEND Nurse Practitioner
DX: R07.9 Chest pain, unspecified (principal); R06.02 Shortness of breath; I48.91 Unspecified atrial fibrillation; C71.9 Malignant neoplasm of brain, unspecified; Z92.21 Personal history of antineoplastic chemotherapy; Z74.01 Bed confinement status
CPT/HCPCS: A0425; A0427

== ENCOUNTER 2017-05-25 15:48 | Inpatient (IN) | payer MEDICARE, OTHER ==
[~2017-05-25] VITALS: Ht 162.6 cm; Wt 75.1 kg
[2017-05-25] MEDS ORDERED: NS(*) 0.9% 500 ML BAG 500 ML IV ONE (16:40)
--- NOTE | 2017-05-25 17:12 | RADIOLOGY IMAGING REPORT ---
FACILITY: [facility] PATIENT NAME: El Hastings : 1940 MR: [id number] V: [id number] EXAM DATE: ORDERING PHYSICIAN: RONALDO MAURICIO TECHNOLOGIST: Location: [facility] Patient: El Hastings : 1940 Visit/Account:[id number] Date of Sevice: 05/25/2017 EXAMINATION: Portable chest radiograph single view at 1650 hours HISTORY: Shortness of breath. COMPARISON: 05/23/2017. FINDINGS: A single portable AP view of the chest is obtained. Lines/tubes: Right IJ central venous port with the tip overlying the cavoatrial junction is unchange d. Lungs/pleura: No focal consolidation or pleural effusion. Heart: Mild cardiac silhouette enlargement. Mediastinum: Negative. Bony structures/body wall: Severe degenerative changes of both glenohumeral joints. IMPRESSION: 1. No radiographic evidence of acute cardiopulmonary disease. 2. Mild cardiac silhouette enlargement, unchanged. Report Dictated By: Adriana Canales MD at 05/25/2017 5:06 PM Report E-Signed By: Adriana Canales MD at 05/25/2017 5:07 PM WSN:[id number]
[2017-05-25 17:29] LABS: PLATELET COUNT, AUTOMATED 248 K/uL (150-450)
--- NOTE | 2017-05-25 18:58 | ER Report ---
History and Physical Time Seen By MD: 16:30 Hx. of Stated Complaint: PATIENT REPORTS THAT SHE IS PARALYZED AND CANNOT MOVE HER EXTREMITIES. PATIENTS AND CAREGIVER REPORT THAT SHE HAS HAD INCREASED WEAKNESS OVER THE LAST 5 DAYS HPI/ROS This is a 77-year-old female with extensive chronic medical problems who was recently seen in this emergency department in the past 48 hours for similar complaints as today. Today her brought her to the emergency department stating that her generalized weakness has progressed such that she is unable to transfer from even a chair to standing and is in general not participating in home physical therapy. Her states that she has become progressively more weak and deconditioned since being discharged from the [facility] approximately 3 weeks ago. The patient admits that she feels weak. Denies focal weakness. No fever or chills, no chest pain, no nausea vomiting diarrhea. No recent falls. No change in mental status. Remainder of the 14 system rev: Yes Allergies: Coded Allergies: tetanus toxoid, adsorbed (Verified Allergy, Severe, HIVES, 03/09/17) SHANNA Inhibitors (Verified Allergy, Mild, 03/09/17) Penicillins (Verified Allergy, Mild, SWELLING, 03/09/17) Sulfa (Sulfonamide Antibiotics) (Verified Allergy, Mild, RASH, 03/09/17) prednisone (Verified Allergy, Mild, Hallucinations, 03/09/17) modafinil (Verified Adverse Reaction, Severe, 03/09/17) Suicidal ideation Home Meds Active Scripts Dextroamphetamine Sulfate (DEXTROAMPHETAMINE SULFATE) 5 Mg Tablet, 5 MG PO BID, #60 TAB Prov:MANISHA VÁZQUEZ MD 05/24/17 Glimepiride (GLIMEPIRIDE) 2 Mg Tablet, 1 TAB PO QDAY, #90 TAB 3 Refills Prov:MANISHA VÁZQUEZ MD 05/24/17 Clonazepam (CLONAZEPAM) 0.5 Mg Tab.rapdis, 0.5 MG PO BID, #60 TAB 5 Refills Prov:MANISHA VÁZQUEZ MD 05/20/17 Tiotropium [place] (SPIRIVA) 18 Mcg/Cap Inh, 18 MCG INH QDAY, #3 INH 3 Refills Prov:MANISHA VÁZQUEZ MD 05/20/17 Fluticasone/Salmeterol (ADVAIR 250-50 DISKUS) 1 Each Disk.w.dev, 1 EACH IH BID, #3 MISC 3 Refills Prov:MANISHA VÁZQUEZ MD 05/20/17 Esomeprazole Magnesium (NEXIUM) 40 Mg Capsule.dr, 1 CAP PO QDAY, #90 CAP 3 Refills Prov:MANISHA VÁZQUEZ MD 05/20/17 Mirtazapine (MIRTAZAPINE) 15 Mg Tablet, 15 MG PO QHS, #90 TAB 3 Refills Prov:MANISHA VÁZQUEZ MD 05/20/17 Escitalopram Oxalate (LEXAPRO) 20 Mg Tablet, 1.5 TAB PO QDAY, #135 TAB 3 Refills Prov:MANISHA VÁZQUEZ MD 05/20/17 Dextroamphetamine Sulfate (DEXTROAMPHETAMINE SULFATE) 10 Mg Capsule.er, 10 MG PO QAM, #30 CAP 0 Refills Prov:AJ HERRERA MD 04/05/17 Oxcarbazepine (OXCARBAZEPINE) 150 Mg Tablet, 1 TAB PO BID for to stabilize mood. , #180 TAB 3 Refills Prov:JOSHUA MCGILL APRN [facility] 02/22/17 Diltiazem Hcl (DILTIAZEM 24HR ER) 120 Mg Cap.er.24h, 120 MG PO QHS, #30 TAB Prov:MANISHA VÁZQUEZ MD 02/16/17 Diltiazem Hcl (CARDIZEM CD) 180 Mg Cap.er.24h, 180 MG PO QAM, #30 CAP 1 Refill Prov:MANISHA VÁZQUEZ MD 02/16/17 Metoprolol Tartrate (METOPROLOL TARTRATE) 50 Mg Tab, 1 TAB PO BID, #180 TAB 4 Refills Prov:MANISHA VÁZQUEZ MD 02/04/17 Nitroglycerin (NITROSTAT) 0.4 Mg Subl, 1 TAB SL Q5MIN, #14 TAB[address] 1 tab under tongue at the 1st sign of chest pain; repeat every 5 min. Prov:JOHSUA MCGILL APRN [employer]-C 11/20/16 Gabapentin (GABAPENTIN) 300 Mg Capsule, 300 MG PO QHS, #30 CAPSULE 11 Refills Prov:MANISHA VÁZQUEZ MD 10/16/16 Levothyroxine Sodium (LEVOTHYROXINE SODIUM) 100 Mcg Tablet, 100 MCG PO QDAY, # 90 TAB 4 Refills Prov:TIKA SCHAEFFER DNP, [facility] [employer] [facility]-BC 10/14/16 Oxygen (OXYGEN) Inha, 3 L INH DIRECTED, #2 L Wear 3 L Nasal Canula during the day and continue same dose of oxgen at night. Pt. will need portable oxygen to leave the house. Prov:MANISHA VÁZQUEZ MD 03/13/16 [place]-3 (FISH OIL 500 MG SOFTGEL) 500 Mg Cap, 1000 MG PO QDAY, #30 CAP Prov:YANELIS SO MD 02/27/15 Cyclosporine (RESTASIS) 1 Each Droperette, 1 EACH OU BID, #1 BOTTLE Prov:YANELIS SO MD 02/27/15 Reported Medications Promethazine Hcl (PROMETHAZINE HCL) 25 Mg Tablet, 25 MG PO Q8H, TAB 05/06/17 Sennosides (SENNA) 8.6 Mg Tablet, 8.6 MG PO QPM 03/07/17 Lactobacillus Combination No.4 (PROBIOTIC) 1 Each Capsule, 1 EACH PO QAM, CAPSULE 03/07/17 Folic Acid (FOLIC ACID) 1 Mg Tablet, 1 MG PO QAM, TAB 03/07/17 Dabigatran Etexilate Mesylate (PRADAXA) 150 Mg Capsule, 150 MG PO BID, CAPSULE 02/02/17 Cholecalciferol (Vitamin D3) (VITAMIN D3) 2,000 Unit Capsule, 2000 UNIT PO QDAY , CAPSULE 09/28/15 Discontinued Reported Medications Ranitidine Hcl (ZANTAC) 150 Mg Tablet, 75 MG PO QDAY, TAB 05/06/17 Acetaminophen (TYLENOL EXTRA STRENGTH) 500 Mg Tablet, 500 MG PO PRN, TAB 03/07/17 Polyethylene Glycol 3350 (MIRALAX) 17 Gm Powd.pack, 17 GM PO ONCE Y for BOWELS, PKT 03/07/17 Vit A,C & E/Lutein/Minerals (OCUVITE TABLET) 1 Each Tablet, 1 TAB PO QDAY 04/22/16 Discontinued Scripts Dexamethasone 4 Mg Tab (DEXAMETHASONE 4 MG TAB) 4 Mg Tab, 4 MG PO BID for before during and after chemo for 3 Days, #12 TAB 3 Refills Prov:AJ HERRERA MD 04/09/17 Hypromellose (NATURAL BALANCE TEARS) 15 Ml Drop, 0 ML OU PRN Y for dry eyes, #1 BOTTLE Prov:YANELIS SO MD 02/27/15 Reviewed Nurses Notes: Yes Old Medical Records Reviewed: Yes Hx Smoking: No Smoking Status: Never Smoker Exposure to Second Hand Smoke?: No Hx Substance Use Disorder: No (Used Darvocet for pain for 25 years) Hx Alcohol Use: No Constitutional Vital Sign - Last 24 Hours 05/25/17 05/25/17 05/25/17 05/25/17 16:08 16:15 16:18 16:19 Pulse 83 85 Resp 20 B/P (MAP) 107/69 (82) 125/66 (85) 125/66 Pulse Ox 95 97 O2 Delivery Nasal Cannula 05/25/17 05/25/17 05/25/17 05/25/17 16:30 16:33 16:45 16:48 Pulse 81 90 B/P (MAP) 119/74 (89) 121/76 (91) Pulse Ox 99 99 05/25/17 05/25/17 05/25/17 05/25/17 17:00 17:03 17:15 17:30 Pulse 87 B/P (MAP) 86/24 (44) 120/67 (84) 116/61 (79) Pulse Ox 99 Intake and Output 05/25/17 05/25/17 05/26/17 15:00 23:00 07:00 Intake Total 500 ml Output Total 15 ml Balance 485 ml Physical Exam General Appearance: The patient is alert, has no immediate need for airway protection and no current signs of toxicity. Eyes: Pupils equal and round no injection. Respiratory: Chest is non tender, lungs are clear to auscultation. Cardiac: regular rate and rhythm Gastrointestinal: Abdomen is soft and non tender, no masses, bowel sounds normal. Neck: Neck is supple and non tender. Extremities have full range of motion and are non tender. Neuro: sensation grossly in tact. 3/5 strength throughout DIFFERENTIAL DIAGNOSIS: After history and physical exam differential diagnosis was considered for trauma, ICH, CVA, infection, failure to thrive, symptomatic anemia Medical Decision Making Data Points Result Diagram: 05/25/177 05/25/17 1717 Laboratory Hematology Test 05/25/17 17:17 05/25/17 17:37 Red Blood Count 2.55 M/uL (4.17-5.56) Mean Corpuscular Volume 100.4 fL (80.0-96.0) Mean Corpuscular Hemoglobin 35.1 pg (26.0-33.0) Mean Corpuscular Hemoglobin Concent 35.0 g/dL (32.0-36.0) Red Cell Distribution Width 20.9 % (11.5-14.5) Mean Platelet Volume 7.6 fL (7.2-11.1) Neutrophils (%) (Auto) 82.6 % (39.4-72.5) Lymphocytes (%) (Auto) 4.9 % (17.6-49.6) Monocytes (%) (Auto) 11.0 % (4.1-12.4) Eosinophils (%) (Auto) 0.9 % (0.4-6.7) Basophils (%) (Auto) 0.6 % (0.3-1.4) Nucleated RBC Relative Count (auto) 0.0 /100WBC Neutrophils # (Auto) 13.2 K/uL (2.0-7.4) Lymphocytes # (Auto) 0.8 K/uL (1.3-3.6) Monocytes # (Auto) 1.8 K/uL (0.3-1.0) Eosinophils # (Auto) 0.1 K/uL (0.0-0.5) Basophils # (Auto) 0.1 K/uL (0.0-0.1) Nucleated RBC Absolute Count (auto) 0.00 K/uL Sodium Level 130 mmol/L (137-145) Potassium Level 3.7 mmol/L (3.5-5.0) Chloride Level 93 mmol/L (98-107) Carbon Dioxide Level 28 mmol/L (22-31) Blood Urea Nitrogen 33 mg/dl (7-18) Creatinine 1.60 mg/dl (0.52-1.04) Glomerular Filtration Rate Calc 31.2 Random Glucose 139 mg/dl (75-110) Calcium Level 8.8 mg/dl (8.4-10.2) Total Bilirubin 0.3 mg/dl (0.2-1.3) Aspartate Amino Transf (AST/SGOT) 26 U/L (0-35) Alanine Aminotransferase (ALT/SGPT) 33 U/L (0-56) Alkaline Phosphatase 155 U/L (0-126) Troponin I < 0.012 ng/ml Total Protein 6.7 gm/dl (6.3-8.2) Albumin 3.0 g/dl (3.5-5.0) Urine Color Yellow Urine Clarity Clear Urine pH 7.0 pH (4.8-9.5) Urine Specific [place] 1.009 Urine Protein Negative mg/dL (NEGATIVE) Urine Glucose (UA) Negative mg/dL (NEGATIVE) Urine Ketones Negative mg/dL (NEGATIVE) Urine Blood Negative (NEGATIVE) Urine Nitrite Negative (NEGATIVE) Urine Bilirubin Negative (NEGATIVE) Urine Urobilinogen Negative mg/dL (0.2-1.9) Urine Leukocyte Esterase Small (NEGATIVE) Urine RBC <1 /HPF (0-2/HPF) Urine WBC 7 /HPF (0-5/HPF) Urine Squamous Epithelial Cells Few /LPF (NONE-FEW) Urine Bacteria Negative /HPF (NONE-FEW) Urine Mucus None /HPF (NONE-FEW) Chemistry Test 05/25/17 17:17 05/25/17 17:37 White Blood Count 16.0 k/uL (4.5-11.0) Red Blood Count 2.55 M/uL (4.17-5.56) Hemoglobin 9.0 g/dL (12.0-16.0) Hematocrit 25.6 % (34.0-47.0) Mean Corpuscular Volume 100.4 fL (80.0-96.0) Mean Corpuscular Hemoglobin 35.1 pg (26.0-33.0) Mean Corpuscular Hemoglobin Concent 35.0 g/dL (32.0-36.0) Red Cell Distribution Width 20.9 % (11.5-14.5) Platelet Count 248 K/uL (150-450) Mean Platelet Volume 7.6 fL (7.2-11.1) Neutrophils (%) (Auto) 82.6 % (39.4-72.5) Lymphocytes (%) (Auto) 4.9 % (17.6-49.6) Monocytes (%) (Auto) 11.0 % (4.1-12.4) Eosinophils (%) (Auto) 0.9 % (0.4-6.7) Basophils (%) (Auto) 0.6 % (0.3-1.4) Nucleated RBC Relative Count (auto) 0.0 /100WBC Neutrophils # (Auto) 13.2 K/uL (2.0-7.4) Lymphocytes # (Auto) 0.8 K/uL (1.3-3.6) Monocytes # (Auto) 1.8 K/uL (0.3-1.0) Eosinophils # (Auto) 0.1 K/uL (0.0-0.5) Basophils # (Auto) 0.1 K/uL (0.0-0.1) Nucleated RBC Absolute Count (auto) 0.00 K/uL Glomerular Filtration Rate Calc 31.2 Calcium Level 8.8 mg/dl (8.4-10.2) Total Bilirubin 0.3 mg/dl (0.2-1.3) Aspartate Amino Transf (AST/SGOT) 26 U/L (0-35) Alanine Aminotransferase (ALT/SGPT) 33 U/L (0-56) Alkaline Phosphatase 155 U/L (0-126) Troponin I < 0.012 ng/ml Total Protein 6.7 gm/dl (6.3-8.2) Albumin 3.0 g/dl (3.5-5.0) Urine Color Yellow Urine Clarity Clear Urine pH 7.0 pH (4.8-9.5) Urine Specific [place] 1.009 Urine Protein Negative mg/dL (NEGATIVE) Urine Glucose (UA) Negative mg/dL (NEGATIVE) Urine Ketones Negative mg/dL (NEGATIVE) Urine Blood Negative (NEGATIVE) Urine Nitrite Negative (NEGATIVE) Urine Bilirubin Negative (NEGATIVE) Urine Urobilinogen Negative mg/dL (0.2-1.9) Urine Leukocyte Esterase Small (NEGATIVE) Urine RBC <1 /HPF (0-2/HPF) Urine WBC 7 /HPF (0-5/HPF) Urine Squamous Epithelial Cells Few /LPF (NONE-FEW) Urine Bacteria Negative /HPF (NONE-FEW) Urine Mucus None /HPF (NONE-FEW) Urinalysis Test 05/25/17 17:37 Urine Color Yellow Urine Clarity Clear Urine pH 7.0 pH (4.8-9.5) Urine Specific [place] 1.009 Urine Protein Negative mg/dL (NEGATIVE) Urine Glucose (UA) Negative mg/dL (NEGATIVE) Urine Ketones Negative mg/dL (NEGATIVE) Urine Blood Negative (NEGATIVE) Urine Nitrite Negative (NEGATIVE) Urine Bilirubin Negative (NEGATIVE) Urine Urobilinogen Negative mg/dL (0.2-1.9) Urine Leukocyte Esterase Small (NEGATIVE) Urine RBC <1 /HPF (0-2/HPF) Urine WBC 7 /HPF (0-5/HPF) Urine Squamous Epithelial Cells Few /LPF (NONE-FEW) Urine Bacteria Negative /HPF (NONE-FEW) Urine Mucus None /HPF (NONE-FEW) ED Course/Re-evaluation ED Course This is a 77-year-old female with multiple chronic medical conditions who presents to the emergency department with progressively worsening generalized weakness for the past 3 weeks such that she is unable to do simple transfers at home in spite of her 's best efforts to assist. She is also refusing to participate in the process of home physical therapy. Her mental status is at its baseline and her labs are also at baseline. Her H&H is notably low right appears to be at her baseline. There is no acute reason for her generalized weakness. She is taking by mouth and no nausea vomiting diarrhea or evidence of infection. I had a long conversation with her about the fact that she may need placement in a long-term care facility. The patient's acknowledges that he understands, and is amenable to discussing the possibility of a fpc facility or even hospice care. In the meantime I do not think she is safe to go home. I spoke with Dr. Grayson who will admit the patient to the hospital for generalized weakness and failure to thrive. Decision to Disposition Date: May 25, 2017 Decision to Disposition Time: 18:57 Depart Departure Latest Vital Signs Vital Signs Date Time Temp Pulse Resp B/P (MAP) Pulse Ox O2 Delivery O2 Flow Rate FiO2 05/25/17 17:30 116/61 (79) 05/25/17 17:03 87 99 05/25/17 16:19 20 Nasal Cannula Impression: Primary Impression: Generalized weakness Condition: Improved Disposition: Admitted from ER Referrals: AJ HERRERA MD (PCP) RONALDO MAURICIO MD May 25, 2017 18:58
[2017-05-25 19:56] VITALS: BP 126/70
[2017-05-25] MEDS ORDERED: NITR50CA35 PO (20:22)
[2017-05-25] MEDS ORDERED: INFLUENZA VIRUS VAC 0.5 ML SYR IM ONLY ONE (20:40)
[2017-05-25] MEDS: SALMETEROL/FLUTIC 250/50 1 INH INH SCH (21:00)
--- NOTE | 2017-05-25 21:32 | History & Physical ---
History of Present Illness History of Present Illness 77yo female with Ovarian carcinoma with abdominal carcinomatosis, atrial flutter and depression who was brought to the ER for progressive weakness. She was discharged from the detention about 3 weeks ago. Since that time, she has become progressively weaker. She only participates with therapy twice a week, but otherwise spends a lot of time in bed. About 2.5 weeks ago, she was hospitalized for AMS, but that cleared once she was admitted. No antibiotics were given and she went home with home health. About 3 weeks ago she could transfer and ambulate, but over the last week, she hasn't been able to stand. She finished a course of nitrofurantoin for a UTI from Dr. Bean and then he had her cut those dose in half to 50mg bid for chronic suppression. 5 days ago , she was restarted on clonazepam and mirtazapine after seeing her PCP. The patient denies f/c/cp/sob/nausea/diarrhea/dysuria/edema/orthopnea. Her has noticed intermittent slurred speech over the years, but no increase frequency. She also gets intermittent confusion, but that has been occurring for years, also. Her last chemotherapy was about 5 weeks ago and she hasn't been able to get the last 2 treatments secondary to UTI's. Her is unable to take care of her even with help from Home Health because of her progressive weakness. The patient's biggest complaint is that she is sore all over from a shower a couple of days ago because her and the aid were too rough on her. Her reports that she was " weight" and they could barely get her bathed. History Problems: (1) CKD (chronic kidney disease) (2) GERD (gastroesophageal reflux disease) Status: Chronic (3) Hypothyroidism Status: Chronic (4) Hypertension, benign Status: Chronic (5) Carcinomatosis Status: Chronic (6) CVA (cerebral infarction) Status: Chronic (7) Atrial fibrillation Status: Chronic (8) Depression Status: Chronic (9) Pulmonary embolism Status: Chronic (10) Chronic pain Status: Chronic (11) Narcolepsy Status: Chronic (12) Ovarian carcinoma Status: Chronic (13) DM2 (diabetes mellitus, type 2) Status: Chronic Home Meds Active Scripts Dextroamphetamine Sulfate (DEXTROAMPHETAMINE SULFATE) 5 Mg Tablet, 5 MG PO BID, #60 TAB Prov:NORY MESA MD 05/24/17 Glimepiride (GLIMEPIRIDE) 2 Mg Tablet, 1 TAB PO QDAY, #90 TAB 3 Refills Prov:NORY MESA MD 05/24/17 Clonazepam (CLONAZEPAM) 0.5 Mg Tab.rapdis, 0.5 MG PO BID, #60 TAB 5 Refills Prov:NORY MESA MD 05/20/17 Tiotropium [place] (SPIRIVA) 18 Mcg/Cap Inh, 18 MCG INH QDAY, #3 INH 3 Refills Prov:NORY MESA MD 05/20/17 Fluticasone/Salmeterol (ADVAIR 250-50 DISKUS) 1 Each Disk.w.dev, 1 EACH IH BID, #3 MISC 3 Refills Prov:NORY MESA MD 05/20/17 Esomeprazole Magnesium (NEXIUM) 40 Mg Capsule.dr, 1 CAP PO QDAY, #90 CAP 3 Refills Prov:NORY MESA MD 05/20/17 Mirtazapine (MIRTAZAPINE) 15 Mg Tablet, 15 MG PO QHS, #90 TAB 3 Refills Prov:NORY MESA MD 05/20/17 Escitalopram Oxalate (LEXAPRO) 20 Mg Tablet, 1.5 TAB PO QDAY, #135 TAB 3 Refills Prov:NORY MESA MD 05/20/17 Dextroamphetamine Sulfate (DEXTROAMPHETAMINE SULFATE) 10 Mg Capsule.er, 10 MG PO QAM, #30 CAP 0 Refills Prov:AJ HERRERA MD 04/05/17 Oxcarbazepine (OXCARBAZEPINE) 150 Mg Tablet, 1 TAB PO BID for to stabilize mood. , #180 TAB 3 Refills Prov:JOSHUA MCGILL APRN ART EDUCATOR-C 02/22/17 Diltiazem Hcl (DILTIAZEM 24HR ER) 120 Mg Cap.er.24h, 120 MG PO QHS, #30 TAB Prov:NORY MESA MD 02/16/17 Diltiazem Hcl (CARDIZEM CD) 180 Mg Cap.er.24h, 180 MG PO QAM, #30 CAP 1 Refill Prov:NORY MESA MD 02/16/17 Metoprolol Tartrate (METOPROLOL TARTRATE) 50 Mg Tab, 1 TAB PO BID, #180 TAB 4 Refills Prov:NORY MESA MD 02/04/17 Nitroglycerin (NITROSTAT) 0.4 Mg Subl, 1 TAB SL Q5MIN, #14 TAB.SL [address] 1 tab under tongue at the 1st sign of chest pain; repeat every 5 min. Prov:JOSHUA MCGILL APRN ART EDUCATOR-C 11/20/16 Gabapentin (GABAPENTIN) 300 Mg Capsule, 300 MG PO QHS, #30 CAPSULE 11 Refills Prov:NORY MESA MD 10/16/16 Levothyroxine Sodium (LEVOTHYROXINE SODIUM) 100 Mcg Tablet, 100 MCG PO QDAY, # 90 TAB 4 Refills Prov:TIKA SCHAEFFER DNP, ART EDUCATOR-BC 10/14/16 Oxygen (OXYGEN) Inha, 3 L INH DIRECTED, #2 L Wear 3 L Nasal Canula during the day and continue same dose of oxgen at night. Pt. will need portable oxygen to leave the house. Prov:NORY MESA MD 03/13/16 [place]-3 (FISH OIL 500 MG SOFTGEL) 500 Mg Cap, 1000 MG PO QDAY, #30 CAP Prov:YANELIS SO MD 02/27/15 Cyclosporine (RESTASIS) 1 Each Droperette, 1 EACH OU BID, #1 BOTTLE Prov:YANELIS SO MD 02/27/15 Reported Medications Nitrofurantoin Macrocrystal (NITROFURANTOIN) 50 Mg Capsule, 50 MG PO BID, CAPSULE 05/25/17 Promethazine Hcl (PROMETHAZINE HCL) 25 Mg Tablet, 25 MG PO Q8H, TAB 05/06/17 Sennosides (SENNA) 8.6 Mg Tablet, 8.6 MG PO QPM 03/07/17 Lactobacillus Combination No.4 (PROBIOTIC) 1 Each Capsule, 1 EACH PO QAM, CAPSULE 03/07/17 Folic Acid (FOLIC ACID) 1 Mg Tablet, 1 MG PO QAM, TAB 03/07/17 Dabigatran Etexilate Mesylate (PRADAXA) 150 Mg Capsule, 150 MG PO BID, CAPSULE 02/02/17 Cholecalciferol (Vitamin D3) (VITAMIN D3) 2,000 Unit Capsule, 2000 UNIT PO QDAY , CAPSULE 09/28/15 Discontinued Reported Medications Ranitidine Hcl (ZANTAC) 150 Mg Tablet, 75 MG PO QDAY, TAB 05/06/17 Acetaminophen (TYLENOL EXTRA STRENGTH) 500 Mg Tablet, 500 MG PO PRN, TAB 03/07/17 Polyethylene Glycol 3350 (MIRALAX) 17 Gm Powd.pack, 17 GM PO ONCE Y for BOWELS, PKT 03/07/17 Vit A,C & E/Lutein/Minerals (OCUVITE TABLET) 1 Each Tablet, 1 TAB PO QDAY 04/22/16 Discontinued Scripts Dexamethasone 4 Mg Tab (DEXAMETHASONE 4 MG TAB) 4 Mg Tab, 4 MG PO BID for before during and after chemo for 3 Days, #12 TAB 3 Refills Prov:AJ HERRERA MD 04/09/17 Hypromellose (NATURAL BALANCE TEARS) 15 Ml Drop, 0 ML OU PRN Y for dry eyes, #1 BOTTLE Prov:YANELIS SO MD 02/27/15 Allergies: Coded Allergies: tetanus toxoid, adsorbed (Verified Allergy, Severe, HIVES, 03/09/17) SHANNA Inhibitors (Verified Allergy, Mild, 03/09/17) Penicillins (Verified Allergy, Mild, SWELLING, 03/09/17) Sulfa (Sulfonamide Antibiotics) (Verified Allergy, Mild, RASH, 03/09/17) prednisone (Verified Allergy, Mild, Hallucinations, 03/09/17) modafinil (Verified Adverse Reaction, Severe, 03/09/17) Suicidal ideation Patient History: FH: CHF (congestive heart failure) MOTHER FH: breast cancer MOTHER MATERNAL GRANDMOTHER FH: dementia FATHER FHx: anemia FHx: anemia FHx: anemia Unobtainable due to patient's condition FATHER MOTHER MATERNAL GRANDMOTHER CHILD, Age:55 CHILD, Age:50 Valvular heart disease MOTHER Hx Smoking: No Smoking Status: Never Smoker Exposure to Second Hand Smoke?: No Caffeine Intake: Coffee, Tea, Soda Caffeine/Cups Per Day: "I consume a great deal of all three" Hx Alcohol Use: No Hx Substance Use Disorder: No (Used Darvocet for pain for 25 years) Social Drug Use: Never Social Drugs: Prescription Drugs Review of Systems All Systems Reviewed/Normal: Yes, Except as Noted Exam Vital Signs Vital Signs Date Time Temp Pulse Resp B/P (MAP) Pulse Ox O2 Delivery O2 Flow Rate FiO2 05/25/17 20:23 93 Nasal Cannula 1.0 05/25/17 19:56 98.5 98 16 126/70 (88) General Appearance: Alert, Awake, No Acute Distress Neuro: Other (Diffuse UE and LE weakness that is symmetric. She can only lift her foot off the bed an inch bilaterally and only hold it for a second. No facial droop. She knows where she is and why she is here.) ENT: Other (tacky mucous membranes) Cardiovascular: Regular Rate and Rhythm Respiratory: Clear to Auscultation GI: Abd Soft and Non-Tender Extremities: No Edema Integumentary: No Jaundice, No Cyanosis Medical Decision Making Data Points Result Diagram: 05/25/17171605/25/171716 Item Value Date Time Creatinine 1.60 mg/dl H 05/25/17 171 Blood Urea Nitrogen 33 mg/dl H 05/25/17 1717 Blood Urea Nitrogen 30 mg/dl H 05/23/17 1615 Creatinine 1.40 mg/dl H 05/23/17 1615 Creatinine 1.30 mg/dl H 05/20/17 1322 Blood Urea Nitrogen 34 mg/dl H 05/20/17 1322 Random Glucose 139 mg/dl H 05/25/17 1717 Random Glucose 227 mg/dl H 05/23/17 1615 Random Glucose 203 mg/dl H 05/20/17 1322 B-Type Natriuretic Peptide 819 pg/ml H 05/23/17 1810 Total Bilirubin 0.3 mg/dl 05/25/17 1717 Aspartate Amino Transf (AST/SGOT) 26 U/L 05/25/17 1717 Alanine Aminotransferase (ALT/SGPT) 33 U/L 05/25/17 1717 Troponin I < 0.012 ng/ml 05/25/17 171 Albumin 3.0 g/dl L 05/25/17 1717 White Blood Count 16.0 k/uL H 05/25/17 1717 White Blood Count 18.7 k/uL H 05/23/17 1615 White Blood Count 14.8 k/uL H 05/20/17 1322 White Blood Count 17.3 k/uL H 05/13/17 1320 White Blood Count 8.2 k/uL 05/08/17 0535 Hemoglobin 9.4 g/dL L 05/06/17 1338 Hemoglobin 8.6 g/dL *L 05/07/17 0525 Hemoglobin 8.7 g/dL *L 05/08/17 0535 Hemoglobin 8.9 g/dL *L 05/13/17 1320 Hemoglobin 10.0 g/dL L 05/20/17 1322 Hemoglobin 9.4 g/dL L 05/23/17 1615 Hemoglobin 9.0 g/dL *L 05/25/17 1717 Platelet Count 248 K/uL 05/25/17 1717 Platelet Count 243 K/uL 05/23/17 1615 Platelet Count 377 K/uL 05/20/17 1322 Neutrophils (%) (Auto) 82.6 % H 05/25/17 171 Lymphocytes (%) (Auto) 4.9 % L 05/25/17 171 Monocytes (%) (Auto) 11.0 % 05/25/17 171 Eosinophils (%) (Auto) 0.9 % 05/25/17 171 Basophils (%) (Auto) 0.6 % 05/25/171716 Nucleated RBC Relative Count (auto) 0.0 /100WBC 05/25/17 1717 Prothromb Time International Ratio 1.57 05/23/17 1615 Urine Leukocyte Esterase Small H 05/25/17 1737 Urine RBC <1 /HPF 05/25/17 1737 Urine WBC 7 /HPF 05/25/17 1737 Urine Squamous Epithelial Cells Few /LPF 05/25/17 1737 Urine Bacteria Negative /HPF 05/25/17 1737 Influenza Virus Type A (PCR) Negative 05/23/171809 Influenza Virus Type B (PCR) Negative 05/23/171809 EKG / Imaging EKG Interpretation Vent. Rate : 101 BPM Atrial Rate : 088 BPM P-R Int : 000 ms QRS Dur : 098 ms QT Int : 380 ms P-R-T Axes : 000 042 084 degrees QTc Int : 492 ms Atrial fibrillation Abnormal ECG No previous ECGs available Confirmed by YARELIS VAZ ([id number]) on 05/24/2017 6:35:12 AM Referred By: Confirmed By:YARELIS VAZ Imaging CXR - 1. No radiographic evidence of acute cardiopulmonary disease. 2. Mild cardiac silhouette enlargement, unchanged. Assessment and Plan Problems: (1) Generalized weakness Status: Acute Assessment & Plan: She presented with progressive weakness over the last 3 weeks. Certainly, deconditioning from lack of participation with therapy/ activity is a big contributor. However, she has been having more frequent UTI' s that Dr. Bean has started suppressive dose nitrofurantoin. Also, she hasn't received treatment for her ovarian cancer in over 5 weeks because of the UTI's. She has long standing polypharmacy that certainly contributing. The patient is not able to even participate with transfers. Her is unable to care for her at home. Her WBC is elevated, but CXR is wnl and UA is fairly bland. WBC has been elevated for the last 3 weeks. Will stop clonazepam that was started 5 days ago and stop nitrofurantoin suppressive dosing. Will check a CRP /CPK. Will ask OT/PT and SW to evaluate. (2) ARF (acute renal failure) Status: Acute Assessment & Plan: Acute on chronic renal failure. She received 500cc of IVF in the ER. She is drinking well currently, so will saline lock and recheck labs tomorrow. (3) Ovarian carcinoma Status: Chronic Assessment & Plan: See above. (4) ANEMIA, UNSPECIFIED Status: Chronic Assessment & Plan: Long standing and near her baseline. (5) Atrial fibrillation *Optional Permanent Comment*: With intermittent RVR Last Edited By: Nory Mesa MD on Jun 19, 2016 10:30 Status: Chronic Assessment & Plan: Rate controlled on metorpolol and diltiazem, which will be continued. Continue Pradaxa for stroke prophylaxis, but at renal dosing. (6) DM2 (diabetes mellitus, type 2) Status: Chronic Assessment & Plan: Continue chronic Amaryl and will use SSI level 2 to cover. (7) Depression Status: Chronic Assessment & Plan: Continue Lexapro. (8) Narcolepsy Status: Chronic Assessment & Plan: Continue Dextroamphetamine. (9) Incontinence Onset Date: 11/07/2013 Status: Chronic (10) CKD (chronic kidney disease) stage 3, GFR 30-59 ml/min Status: Chronic Copies to: NORY MESA MD Venous Thromboembolism Antithrombotics Is Pt On Any Antithrombotics?: No Exam Sepsis Risk: No Definite Risk VICTOR HUGO RUBI MD May 25, 2017 21:32
[2017-05-25] MEDS: OXCARBAZEPINE 150 MG TABLET PO SCH (22:06)
[2017-05-25] MEDS: MIRTAZAPINE 15 MG TAB PO SCH (22:06)
[2017-05-25] MEDS: GABAPENTIN 300 MG CAP PO SCH (22:06)
[2017-05-25] MEDS: METOPROLOL TART 50 MG TAB PO SCH (22:06)
[2017-05-25] MEDS: ACETAMINOPHEN 325 MG TAB PO PRN (22:06)
[2017-05-25] MEDS: DABIGATRAN ETEXILATE 75 MG CAP PO SCH (22:07)
[2017-05-25] MEDS: DILTIAZEM CD 120 MG CAPCR PO SCH (22:07)
[2017-05-25] MEDS: cycloSPORINE 0.05% EMUL 1 DROP OU SCH (22:07)
[2017-05-26] MEDS: LEVOTHYROXINE SOD 0.1 MG TAB PO SCH (05:46)
[2017-05-26 05:47] VITALS: BP 129/77
[2017-05-26] MEDS: TIOTROPIUM BROM INH 18 MCG/CAP INH SCH (05:49)
[2017-05-26] MEDS: SALMETEROL/FLUTIC 250/50 1 INH INH SCH ×2 (05:49→17:14)
[2017-05-26 06:05] LABS: PLATELET COUNT, AUTOMATED 251 K/uL (150-450)
[2017-05-26 07:16] VITALS: BP 121/83
[2017-05-26] MEDS: PANTOPRAZOLE SOD 40 MG TABEC PO SCH (07:19)
[2017-05-26] MEDS ORDERED: DEXTROAMPHETAMINE 5 MG PO SCH (08:00)
[2017-05-26] MEDS: METOPROLOL TART 50 MG TAB PO SCH ×2 (08:38→20:21)
[2017-05-26] MEDS: DILTIAZEM CD 180 MG CAPCR PO SCH (08:38)
[2017-05-26] MEDS: ESCITALOPRAM OXALATE 10 MG TAB PO SCH (08:38)
[2017-05-26] MEDS: GLIMEPIRIDE 2 MG TAB PO SCH (08:38)
[2017-05-26] MEDS: OXCARBAZEPINE 150 MG TABLET PO SCH ×2 (08:39→20:21)
[2017-05-26] MEDS: DEXTROAMPHETAMINE 10 MG PO SCH (08:39)
[2017-05-26] MEDS: cycloSPORINE 0.05% EMUL 1 DROP OU SCH ×2 (08:39→20:21)
[2017-05-26] MEDS: DABIGATRAN ETEXILATE 75 MG CAP PO SCH ×2 (08:39→20:21)
[2017-05-26] MEDS: FOLIC ACID 1 MG TAB PO SCH (08:39)
[2017-05-26 12:11] VITALS: BP 131/69
[2017-05-26] MEDS: INSULIN HUM LISPRO 100 UN/ML 3 ML VIAL SUBQ PRN ×3 (12:14→20:23)
[2017-05-26] MEDS: ACETAMINOPHEN 325 MG TAB PO PRN ×2 (12:15→20:22)
--- NOTE | 2017-05-26 12:54 | Hospitalist Progress Note ---
Subjective Progress Notes Subjective She is still very weak. Some abdominal discomfort. Some WEI at times. Physical Exam Vital Signs Date Time Temp Pulse Resp B/P (MAP) Pulse Ox O2 Delivery O2 Flow Rate FiO2 05/26/17 12:11 98.1 87 16 131/69 (89) 97 Nasal Cannula 1.0 Intake and Output 05/27/17 07:00 Output Total 850 ml Balance -850 ml Post Void Residual 850 ml Bladder Scan Volume Amount 619 # Voids 1 General Appearance: Alert, Awake Cardiovascular: Other (Irregular with distant tones) Respiratory: Other (poor effort, but fairly clear) Chest: No Tenderness GI: Other (some slight distension/no reported pain with palpation/BS present) Extremities: Warm, Perfused Result Diagram: 05/26/1754305/26/17543 Assessment and Plan Problems: (1) Generalized weakness Status: Acute Assessment & Plan: She presented with progressive weakness over the last 3 weeks. Certainly, deconditioning from lack of participation with therapy/ activity is a big contributor. However, she has been having more frequent UTI' s that Dr. Bean has started suppressive dose nitrofurantoin. Also, she hasn't received treatment for her ovarian cancer in over 5 weeks because of the UTI's. She has long standing polypharmacy that certainly contributing. The patient is not able to even participate with transfers. Her is unable to care for her at home. Her WBC is elevated, but CXR is unremarkable and UA is fairly bland. WBC has been elevated for the last 3 weeks. We did stop clonazepam that was started 5 days ago and stop nitrofurantoin suppressive dosing. Will ask OT/PT and SW to evaluate. Discuss with family. (2) ARF (acute renal failure) Status: Acute Assessment & Plan: Acute on chronic renal failure. She received 500cc of IVF in the ER. She is drinking and eating. Will watch labs closely. (3) Ovarian carcinoma Status: Chronic Assessment & Plan: See above. (4) ANEMIA, UNSPECIFIED Status: Chronic Assessment & Plan: Long standing and near her baseline. (5) Atrial fibrillation *Optional Permanent Comment*: With intermittent RVR Last Edited By: Nory Mesa MD on Jun 19, 2016 10:30 Status: Chronic Assessment & Plan: Rate controlled on metorpolol and diltiazem, which will be continued. Continue Pradaxa for stroke prophylaxis, but at renal dosing. (6) DM2 (diabetes mellitus, type 2) Status: Chronic Assessment & Plan: Continue chronic Amaryl and will use SSI level 2 to cover. (7) Depression Status: Chronic Assessment & Plan: Continue Lexapro. (8) Narcolepsy Status: Chronic Assessment & Plan: Continue Dextroamphetamine. (9) Incontinence Onset Date: 11/07/2013 Status: Chronic (10) CKD (chronic kidney disease) stage 3, GFR 30-59 ml/min Status: Chronic Exam Sepsis Risk: No Definite Risk AVTAR SO MD May 26, 2017 12:53
[2017-05-26] MEDS ORDERED: NITR50CA35 PO (15:01)
[2017-05-26 15:02] VITALS: BP 114/61
[2017-05-26 16:39] VITALS: Ht 162.6 cm; Wt 75.1 kg
[2017-05-26 20:07] VITALS: BP 118/61
[2017-05-26] MEDS: MIRTAZAPINE 15 MG TAB PO SCH (20:21)
[2017-05-26] MEDS: GABAPENTIN 300 MG CAP PO SCH (20:21)
[2017-05-26] MEDS: DILTIAZEM CD 120 MG CAPCR PO SCH (20:21)
[2017-05-27] MEDS: SALMETEROL/FLUTIC 250/50 1 INH INH SCH ×2 (04:28→17:22)
[2017-05-27] MEDS: TIOTROPIUM BROM INH 18 MCG/CAP INH SCH (04:28)
[2017-05-27] MEDS: LEVOTHYROXINE SOD 0.1 MG TAB PO SCH (05:40)
[2017-05-27] MEDS: PANTOPRAZOLE SOD 40 MG TABEC PO SCH (05:40)
[2017-05-27 05:41] VITALS: BP 114/57
[2017-05-27 06:08] LABS: PLATELET COUNT, AUTOMATED 252 K/uL (150-450)
[2017-05-27 08:05] VITALS: BP 123/76
[2017-05-27] MEDS: DABIGATRAN ETEXILATE 75 MG CAP PO SCH ×2 (09:14→20:39)
[2017-05-27] MEDS: OXCARBAZEPINE 150 MG TABLET PO SCH ×2 (09:14→20:40)
[2017-05-27] MEDS: METOPROLOL TART 50 MG TAB PO SCH ×2 (09:14→20:39)
[2017-05-27] MEDS: ESCITALOPRAM OXALATE 10 MG TAB PO SCH (09:14)
[2017-05-27] MEDS: DILTIAZEM CD 180 MG CAPCR PO SCH (09:15)
[2017-05-27] MEDS: DEXTROAMPHETAMINE 10 MG PO SCH (09:15)
[2017-05-27] MEDS: GLIMEPIRIDE 2 MG TAB PO SCH (09:15)
[2017-05-27] MEDS: FOLIC ACID 1 MG TAB PO SCH (09:15)
[2017-05-27] MEDS: cycloSPORINE 0.05% EMUL 1 DROP OU SCH ×2 (09:15→20:39)
--- NOTE | 2017-05-27 11:58 | Hospitalist Progress Note ---
Subjective Progress Notes Subjective This patient was admitted for weakness and failure to thrive. She had no acute events overnight. Patient Complains of: Cardiovascular: No: Chest Pain Respiratory: No: Shortness of Breath Physical Exam Vital Signs Date Time Temp Pulse Resp B/P (MAP) Pulse Ox O2 Delivery O2 Flow Rate FiO2 05/27/17 08:05 97.5 100 18 123/76 (92) 99 Nasal Cannula 0.5 Cardiovascular: Regular Rate and Rhythm Respiratory: Clear to Auscultation Result Diagram: 05/27/17 0600 05/27/17 0600 Assessment and Plan Problems: (1) Generalized weakness Status: Acute Assessment & Plan: She presented with progressive weakness over the last 3 weeks. Physical and occupational therapy consults have been ordered. Social work is also evaluating her for placement. (2) ARF (acute renal failure) Status: Acute Assessment & Plan: Her creatinine was slightly worse than baseline. She received an IV bolus on admission. (3) Ovarian carcinoma Status: Chronic Assessment & Plan: See above. (4) ANEMIA, UNSPECIFIED Status: Chronic Assessment & Plan: Long standing and near her baseline. (5) Atrial fibrillation *Optional Permanent Comment*: With intermittent RVR Last Edited By: Nory Mesa MD on Jun 19, 2016 10:30 Status: Chronic Assessment & Plan: Rate controlled on metorpolol and diltiazem, which will be continued. Continue Pradaxa for stroke prophylaxis, but at renal dosing. (6) DM2 (diabetes mellitus, type 2) Status: Chronic Assessment & Plan: Continue chronic Amaryl and will use SSI level 2 to cover. (7) Depression Status: Chronic Assessment & Plan: Continue Lexapro. (8) Narcolepsy Status: Chronic Assessment & Plan: Continue Dextroamphetamine. (9) Incontinence Onset Date: 11/07/2013 Status: Chronic (10) CKD (chronic kidney disease) stage 3, GFR 30-59 ml/min Status: Chronic Exam Sepsis Risk: No Definite Risk YARELIS VAZ DO May 27, 2017 11:58
[2017-05-27 12:21] VITALS: BP 137/50
[2017-05-27] MEDS: INSULIN HUM LISPRO 100 UN/ML 3 ML VIAL SUBQ PRN ×2 (12:29→17:44)
--- NOTE | 2017-05-27 17:48 | Medical Nutrition Therapy ---
Nutrition Anthropometrics Height (Inches): 64.00 Height (Calculated Centimeters: 162.724498 Weight (Pounds): 165 Weight (Calculated Kilograms): 75.070 BMI Calculated: 28.32 Ryan Nutrition Score: Adequate Ryan Nutrition Risk Score: 15 Dietary Referral Nutrition Risk Factors: Diff. Swallowing Nutrition Risk Comment: Pt has stage 4 cancer and is on chemotherapy Nutritional Diagnosis Nutritional Risk Acuity 1: Acute/ES Renal Nutritional Risk Acuity 3: Fair Appetite, Cancer Past Medical History: breast cancer, chemo, UTI, GERD, CVA, depression, acute renal failure, gout, type 2 DM, HTN, hypothyroidism, CHF, COPD, a fib, abdominal carcinomatosis, pulmonary embolism Nutritional Acuity: 1-High Nutrition Problem/Etiology/Sym: Decreased na, phos, K+ r/t ARF AEB BUN 33, creatinine 1.6 Energy Requirement: 1900 (M- StJ X 1.2 SF) Protein Requirement: 67 (.9gm/kg) Fluid Requirement: 1875 (25ml/kg) Diet Type: Diet as Tolerated EVERETTE/REG Nutrition Intervention: Cont diet as ordered, Encourage intake, Between meal supplement Additional Diet Restrictions: OFFER NUT SUPPLMENT Nutrition Monitoring & Eval Nutrition Goals: Eat 75-100% Meal RD Patient Assessment Time: [address] Assessment Type: RD Assessment Patient Nutrition Acuity: 2-Moderate Follow Up Date: Jun 01, 2017 Nutritional Comment: 05/26 Pt admitted for weakness and ARF. BUN 34, creatinine 1.4, Alb 2.6, WBC 11.2, Hgb 8.4, HcT 24.3. Pt has T2DM and is on EVERETTE. Recommend cont EVERETTE r/t current condition and dx stage 4 Ca to allow more choice. BG mildly elevated up to 158. Pt eating 75%. Cont to monitor and encourage intake. 05/27 Pt cont elevated BUN at 33, creatinine at 1.6. Intake range 50- 100% . BG ranging 121-188. alb 2.7. Cont to monitor and encourage intake. NATE CORDOBA May 27, 2017 17:48
[2017-05-27 20:34] VITALS: BP 110/75
[2017-05-27] MEDS: GABAPENTIN 300 MG CAP PO SCH (20:39)
[2017-05-27] MEDS: DILTIAZEM CD 120 MG CAPCR PO SCH (20:39)
[2017-05-27] MEDS: MIRTAZAPINE 15 MG TAB PO SCH (20:39)
[2017-05-27 22:41] VITALS: BP 126/73
[2017-05-28 03:30] VITALS: BP 112/69
[2017-05-28] MEDS: LEVOTHYROXINE SOD 0.1 MG TAB PO SCH (05:29)
[2017-05-28] MEDS: PANTOPRAZOLE SOD 40 MG TABEC PO SCH (05:29)
[2017-05-28] MEDS: TIOTROPIUM BROM INH 18 MCG/CAP INH SCH (05:59)
[2017-05-28] MEDS: SALMETEROL/FLUTIC 250/50 1 INH INH SCH ×2 (05:59→18:11)
[2017-05-28 07:34] VITALS: BP 117/71
[2017-05-28] MEDS: METOPROLOL TART 50 MG TAB PO SCH ×2 (09:02→21:03)
[2017-05-28] MEDS: DEXTROAMPHETAMINE 10 MG PO SCH (09:02)
[2017-05-28] MEDS: cycloSPORINE 0.05% EMUL 1 DROP OU SCH ×2 (09:02→21:00)
[2017-05-28] MEDS: DILTIAZEM CD 180 MG CAPCR PO SCH (09:02)
[2017-05-28] MEDS: GLIMEPIRIDE 2 MG TAB PO SCH (09:03)
[2017-05-28] MEDS: ESCITALOPRAM OXALATE 10 MG TAB PO SCH (09:03)
[2017-05-28] MEDS: FOLIC ACID 1 MG TAB PO SCH (09:03)
[2017-05-28] MEDS: OXCARBAZEPINE 150 MG TABLET PO SCH ×2 (09:03→21:03)
[2017-05-28] MEDS: DABIGATRAN ETEXILATE 75 MG CAP PO SCH ×2 (09:03→21:03)
[2017-05-28] MEDS: KCL/NS* 20 MEQ/1000 ML PREMIX 1,000 ML IV SCH (11:56)
[2017-05-28] MEDS: POTASSIUM CHL 10 MEQ TABCR PO SCH ×2 (11:56→16:55)
[2017-05-28] MEDS: INSULIN HUM LISPRO 100 UN/ML 3 ML VIAL SUBQ PRN ×2 (11:57→21:03)
[2017-05-28 15:05] VITALS: BP 122/63
--- NOTE | 2017-05-28 15:33 | Hospitalist Progress Note ---
Subjective Progress Notes Subjective No new complaints. Physical Exam Vital Signs Date Time Temp Pulse Resp B/P (MAP) Pulse Ox O2 Delivery O2 Flow Rate FiO2 05/28/17 15:05 97.8 93 16 122/63 (82) 94 Nasal Cannula 1.0 Intake and Output 05/29/17 07:00 Intake Total 1240 ml Balance 1240 ml Intake Oral 1240 ml # Voids 1 # Bowel Movements 1 General Appearance: Alert, Awake, No Acute Distress Eyes: PERRLA Cardiovascular: Regular Rate and Rhythm GI: Soft and Non-Tender Extremities: Warm, Perfused Integumentary: Generalized Fragile Skin Result Diagram: 05/27/17 0600 05/27/17 0600 Assessment and Plan Problems: (1) Generalized weakness Status: Acute Assessment & Plan: She presented with progressive weakness over the last 3 weeks. Physical and occupational therapy consults have been ordered. Social work is also evaluating her for placement. (2) ARF (acute renal failure) Status: Acute Assessment & Plan: Her creatinine was slightly worse than baseline. She received an IV bolus on admission. Her creatinine is up again today. Will place on IV fluids overnight and repeat labs in am. (3) Ovarian carcinoma Status: Chronic Assessment & Plan: See above. (4) ANEMIA, UNSPECIFIED Status: Chronic Assessment & Plan: Long standing and near her baseline. (5) Atrial fibrillation *Optional Permanent Comment*: With intermittent RVR Last Edited By: Nory Mesa MD on Jun 19, 2016 10:30 Status: Chronic Assessment & Plan: Rate controlled on metorpolol and diltiazem, which will be continued. Continue Pradaxa for stroke prophylaxis, but at renal dosing. (6) DM2 (diabetes mellitus, type 2) Status: Chronic Assessment & Plan: Continue chronic Amaryl and will use SSI level 2 to cover. (7) Depression Status: Chronic Assessment & Plan: Continue Lexapro. (8) Narcolepsy Status: Chronic Assessment & Plan: Continue Dextroamphetamine. (9) Incontinence Onset Date: 11/07/2013 Status: Chronic (10) CKD (chronic kidney disease) stage 3, GFR 30-59 ml/min Status: Chronic Time Spent on Plan of Care: < 30 min Exam Sepsis Risk: No Definite Risk Problem Qualifiers (1) Incontinence: Incontinence type: urinary YANELIS SO MD May 28, 2017 15:33
[2017-05-28 19:06] VITALS: BP 127/51
[2017-05-28] MEDS: GABAPENTIN 300 MG CAP PO SCH (21:03)
[2017-05-28] MEDS: DILTIAZEM CD 120 MG CAPCR PO SCH (21:03)
[2017-05-28] MEDS: MIRTAZAPINE 15 MG TAB PO SCH (21:04)
[2017-05-28 23:41] VITALS: BP 133/75
[2017-05-29] VITALS (9 sets, daily range): BP systolic 124–156; BP diastolic 59–95
[2017-05-29] MEDS: KCL/NS* 20 MEQ/1000 ML PREMIX 1,000 ML IV SCH ×2 (01:05→21:05)
[2017-05-29] MEDS: LEVOTHYROXINE SOD 0.1 MG TAB PO SCH (05:38)
[2017-05-29] MEDS: PANTOPRAZOLE SOD 40 MG TABEC PO SCH (05:38)
[2017-05-29] MEDS: TIOTROPIUM BROM INH 18 MCG/CAP INH SCH (05:49)
[2017-05-29] MEDS: SALMETEROL/FLUTIC 250/50 1 INH INH SCH ×2 (05:49→17:12)
[2017-05-29 05:56] LABS: PLATELET COUNT, AUTOMATED 267 K/uL (150-450)
[2017-05-29] MEDS: METOPROLOL TART 50 MG TAB PO SCH ×2 (09:21→21:04)
[2017-05-29] MEDS: GLIMEPIRIDE 2 MG TAB PO SCH (09:21)
[2017-05-29] MEDS: DEXTROAMPHETAMINE 10 MG PO SCH (09:21)
[2017-05-29] MEDS: DABIGATRAN ETEXILATE 75 MG CAP PO SCH ×2 (09:22→21:04)
[2017-05-29] MEDS: OXCARBAZEPINE 150 MG TABLET PO SCH ×2 (09:22→21:03)
[2017-05-29] MEDS: POTASSIUM CHL 10 MEQ TABCR PO SCH ×2 (09:22→17:08)
[2017-05-29] MEDS: FOLIC ACID 1 MG TAB PO SCH (09:22)
[2017-05-29] MEDS: DILTIAZEM CD 180 MG CAPCR PO SCH (09:22)
[2017-05-29] MEDS: cycloSPORINE 0.05% EMUL 1 DROP OU SCH ×2 (09:22→21:04)
[2017-05-29] MEDS: ESCITALOPRAM OXALATE 10 MG TAB PO SCH (09:22)
--- NOTE | 2017-05-29 10:19 | Hospitalist Progress Note ---
Subjective Progress Notes Subjective Says she feels terrible mostly from the standpoint of fatigue and energy. Physical Exam Vital Signs Date Time Temp Pulse Resp B/P (MAP) Pulse Ox O2 Delivery O2 Flow Rate FiO2 05/29/17 07:11 98.1 95 14 142/84 (103) 96 Nasal Cannula 1.0 99 Intake and Output 05/30/17 07:00 Intake Total 240 ml Balance 240 ml Intake Oral 240 ml General Appearance: Alert, Awake, No Acute Distress, Afebrile Cardiovascular: Other (irreg rhythm) Respiratory: Clear to Auscultation GI: Soft and Non-Tender Psych: Alert & Oriented X3, Appropriate Mood & Affect Result Diagram: 05/29/17 0535 05/29/17 0535 Assessment and Plan Problems: (1) Generalized weakness Status: Acute Assessment & Plan: She presented with progressive weakness over the last 3 weeks. Physical and occupational therapy consults have been ordered. Social work is also evaluating her for placement. Lytes are good. Hgb is down to 7.8 which certainly is contributing to weakness. Will T&C for 2 units of PRBC's and give today. Recheck Hgb after Tx. (2) ARF (acute renal failure) Status: Acute Assessment & Plan: Her creatinine was slightly worse than baseline. She received an IV bolus on admission. Her creatinine is down to 1.3 this morning and K+ is normal. (3) Ovarian carcinoma Status: Chronic Assessment & Plan: See above. (4) ANEMIA, UNSPECIFIED Status: Chronic Assessment & Plan: Long standing. Hgb down to 7.8. See above. (5) Atrial fibrillation *Optional Permanent Comment*: With intermittent RVR Last Edited By: Nory Mesa MD on Jun 19, 2016 10:30 Status: Chronic Assessment & Plan: Rate controlled on metorpolol and diltiazem, which will be continued. Continue Pradaxa for stroke prophylaxis, but at renal dosing. (6) DM2 (diabetes mellitus, type 2) Status: Chronic Assessment & Plan: Continue chronic Amaryl and will use SSI level 2 to cover. (7) Depression Status: Chronic Assessment & Plan: Continue Lexapro. (8) Narcolepsy Status: Chronic Assessment & Plan: Continue Dextroamphetamine. (9) Incontinence Onset Date: 11/07/2013 Status: Chronic (10) CKD (chronic kidney disease) stage 3, GFR 30-59 ml/min Status: Chronic Time Spent on Plan of Care: > 30 min Exam Sepsis Risk: No Definite Risk Problem Qualifiers (1) Incontinence: Incontinence type: urinary GISELA DUMONT MD FACP May 29, 2017 10:19
[2017-05-29] MEDS ORDERED: NS(*) 0.9% 500 ML BAG 500 ML ONE (11:15)
[2017-05-29] MEDS: INSULIN HUM LISPRO 100 UN/ML 3 ML VIAL SUBQ PRN ×2 (11:49→21:14)
[2017-05-29] MEDS: GABAPENTIN 300 MG CAP PO SCH (21:02)
[2017-05-29] MEDS: MIRTAZAPINE 15 MG TAB PO SCH (21:02)
[2017-05-29] MEDS: DILTIAZEM CD 120 MG CAPCR PO SCH (21:02)
[2017-05-30] MEDS: KCL/NS* 20 MEQ/1000 ML PREMIX 1,000 ML IV SCH ×2 (02:06→11:14)
[2017-05-30 03:26] VITALS: BP 138/77
[2017-05-30] MEDS: TIOTROPIUM BROM INH 18 MCG/CAP INH SCH (05:34)
[2017-05-30] MEDS: SALMETEROL/FLUTIC 250/50 1 INH INH SCH ×2 (05:35→18:11)
[2017-05-30] MEDS: LEVOTHYROXINE SOD 0.1 MG TAB PO SCH (06:04)
[2017-05-30] MEDS: PANTOPRAZOLE SOD 40 MG TABEC PO SCH (06:04)
[2017-05-30 06:09] VITALS: BP 142/88
[2017-05-30 06:09] LABS: PLATELET COUNT, AUTOMATED 266 K/uL (150-450)
[2017-05-30] MEDS: ESCITALOPRAM OXALATE 10 MG TAB PO SCH (07:58)
[2017-05-30] MEDS: DEXTROAMPHETAMINE 10 MG PO SCH (07:58)
[2017-05-30] MEDS: POTASSIUM CHL 10 MEQ TABCR PO SCH ×2 (07:58→17:04)
[2017-05-30] MEDS: DABIGATRAN ETEXILATE 75 MG CAP PO SCH ×2 (07:58→21:11)
[2017-05-30] MEDS: OXCARBAZEPINE 150 MG TABLET PO SCH ×2 (07:59→21:11)
[2017-05-30] MEDS: cycloSPORINE 0.05% EMUL 1 DROP OU SCH ×2 (07:59→21:12)
[2017-05-30] MEDS: GLIMEPIRIDE 2 MG TAB PO SCH (07:59)
[2017-05-30] MEDS: FOLIC ACID 1 MG TAB PO SCH (07:59)
[2017-05-30] MEDS: METOPROLOL TART 50 MG TAB PO SCH ×2 (07:59→21:10)
[2017-05-30] MEDS: DILTIAZEM CD 180 MG CAPCR PO SCH (07:59)
[2017-05-30 11:07] VITALS: BP 139/85
[2017-05-30] MEDS: OLOPATADINE 0.1% OU SCH ×2 (11:07→21:13)
--- NOTE | 2017-05-30 11:14 | Hospitalist Progress Note ---
Subjective Progress Notes Subjective She c/o some itchy eyes today. Physical Exam Vital Signs Date Time Temp Pulse Resp B/P (MAP) Pulse Ox O2 Delivery O2 Flow Rate FiO2 05/30/17 06:09 98.3 95 14 142/88 (106) 96 Nasal Cannula 1.0 Intake and Output 05/31/17 07:00 Intake Total 480 ml Output Total 550 ml Balance -70 ml Intake Oral 480 ml Output Urine Total 550 ml # Bowel Movements 1 General Appearance: Alert, Awake Eyes: Other (conjunctiva are slightly injected/erythematous) Cardiovascular: Other (Irregular with distant tones) Respiratory: Other (decreased effort, but fairly clear) GI: Other (some distension, but soft/BS present) Extremities: Warm, Perfused Result Diagram: 05/30/17 0553 05/30/17 0553 Assessment and Plan Problems: (1) Generalized weakness Status: Acute Assessment & Plan: She presented with progressive weakness over the last 3 weeks. Physical and occupational therapy consults have been ordered. Hgb/Hct did drop, which certainly could contribute to weakness. She was transfused 2 units of PRBC's, which has help symptoms slightly. She has not been mobilizing very well. It does appear she is most likely going to need NH placement. SW has been working with patient/family. (2) ARF (acute renal failure) Status: Acute Assessment & Plan: Her creatinine was slightly worse at admission than her baseline. She received IV fluids and transfusion of PRBCs. Her creatinine is down to 1.3. (3) Ovarian carcinoma Status: Chronic Assessment & Plan: Diagnosed approximately 3 years ago. She has been receiving chemotherapy through the [facility], but has been very weak and has not received it for approximately 6-7 weeks now. (4) ANEMIA, UNSPECIFIED Status: Chronic Assessment & Plan: Long standing. She has received 2 units PRBCs. Her Hct/Hgb are good this AM. She reports improved symptoms. Monitor. (5) Atrial fibrillation *Optional Permanent Comment*: With intermittent RVR Last Edited By: Nory Mesa MD on Jun 19, 2016 10:30 Status: Chronic Assessment & Plan: Rate controlled on metorpolol and diltiazem, which will be continued. Continue Pradaxa for stroke prophylaxis, but at renal dosing. (6) DM2 (diabetes mellitus, type 2) Status: Chronic Assessment & Plan: Continue chronic Amaryl and will use SSI level 2 to cover. (7) Depression Status: Chronic Assessment & Plan: Continue Lexapro. (8) Narcolepsy Status: Chronic Assessment & Plan: Continue Dextroamphetamine. (9) Incontinence Onset Date: 11/07/2013 Status: Chronic (10) CKD (chronic kidney disease) stage 3, GFR 30-59 ml/min Status: Chronic (11) Itchy eyes Status: Acute Assessment & Plan: Possible allergic cause. Will try some Patanol and saline drops. Exam Sepsis Risk: No Definite Risk Problem Qualifiers (1) Incontinence: Incontinence type: urinary AVTAR SO MD May 30, 2017 11:14
[2017-05-30 14:56] VITALS: BP 118/64
[2017-05-30] MEDS: HYPROMELLOSE 0.4% LUB 15ML BTL OU PRN ×2 (15:03→21:18)
[2017-05-30] MEDS: INSULIN HUM LISPRO 100 UN/ML 3 ML VIAL SUBQ PRN (17:04)
[2017-05-30 20:19] VITALS: BP 136/102
[2017-05-30] MEDS: MIRTAZAPINE 15 MG TAB PO SCH (21:10)
[2017-05-30] MEDS: GABAPENTIN 300 MG CAP PO SCH (21:10)
[2017-05-30] MEDS: DILTIAZEM CD 120 MG CAPCR PO SCH (21:11)
[2017-05-30 22:45] VITALS: BP 146/90
[2017-05-31] MEDS: KCL/NS* 20 MEQ/1000 ML PREMIX 1,000 ML IV SCH (00:32)
[2017-05-31 03:24] VITALS: BP 138/82
[2017-05-31] MEDS: SALMETEROL/FLUTIC 250/50 1 INH INH SCH (05:25)
[2017-05-31] MEDS: TIOTROPIUM BROM INH 18 MCG/CAP INH SCH (05:25)
[2017-05-31] MEDS: LEVOTHYROXINE SOD 0.1 MG TAB PO SCH (05:52)
[2017-05-31] MEDS: PANTOPRAZOLE SOD 40 MG TABEC PO SCH (05:52)
[2017-05-31 07:34] VITALS: BP 137/95
[2017-05-31] MEDS: HYPROMELLOSE 0.4% LUB 15ML BTL OU PRN (07:37)
[2017-05-31 08:33] VITALS: BP 137/75
[2017-05-31] MEDS: cycloSPORINE 0.05% EMUL 1 DROP OU SCH (08:37)
[2017-05-31] MEDS: ESCITALOPRAM OXALATE 10 MG TAB PO SCH (08:38)
[2017-05-31] MEDS: POTASSIUM CHL 10 MEQ TABCR PO SCH (08:38)
[2017-05-31] MEDS: GLIMEPIRIDE 2 MG TAB PO SCH (08:38)
[2017-05-31] MEDS: METOPROLOL TART 50 MG TAB PO SCH (08:38)
[2017-05-31] MEDS: DEXTROAMPHETAMINE 10 MG PO SCH (08:38)
[2017-05-31] MEDS: FOLIC ACID 1 MG TAB PO SCH (08:38)
[2017-05-31] MEDS: DILTIAZEM CD 180 MG CAPCR PO SCH (08:39)
[2017-05-31] MEDS: DABIGATRAN ETEXILATE 75 MG CAP PO SCH (08:39)
[2017-05-31] MEDS: OXCARBAZEPINE 150 MG TABLET PO SCH (08:39)
[2017-05-31] MEDS: OLOPATADINE 0.1% OU SCH (08:51)
--- NOTE | 2017-05-31 09:41 | Hospitalist Depart ---
Discharge Summary Reason for Hosp/Final Diag: (1) Generalized weakness Status: Acute Hospital Course & Plan: She presented with progressive weakness over the last 3 weeks. Physical and occupational therapy consults have been ordered. Hgb/Hct did drop, which certainly could contribute to weakness. She was transfused 2 units of PRBC's, which has help symptoms slightly. She has not been mobilizing very well. She will be transferred by family to [facility] for rehab. (2) ARF (acute renal failure) Status: Acute Hospital Course & Plan: Her creatinine was slightly worse at admission than her baseline. She received IV fluids and transfusion of PRBCs. Her creatinine is down to 1.3. (3) Ovarian carcinoma Status: Chronic Hospital Course & Plan: Diagnosed approximately 3 years ago. She has been receiving chemotherapy through the [facility], but has been very weak and has not received it for approximately 6-7 weeks now. (4) ANEMIA, UNSPECIFIED Status: Chronic Hospital Course & Plan: Long standing. She has received 2 units PRBCs. Her Hct/ Hgb are good this AM. She reports improved symptoms. (5) Atrial fibrillation *Optional Permanent Comment*: With intermittent RVR Last Edited By: Nory Mesa MD on Jun 19, 2016 10:30 Status: Chronic Hospital Course & Plan: Rate controlled on metorpolol and diltiazem, which will be continued. Continue Pradaxa for stroke prophylaxis, but at renal dosing. (6) DM2 (diabetes mellitus, type 2) Status: Chronic Hospital Course & Plan: Continue chronic Amaryl. (7) Depression Status: Chronic Hospital Course & Plan: Continue Lexapro. (8) Narcolepsy Status: Chronic Hospital Course & Plan: Continue Dextroamphetamine. (9) Incontinence Onset Date: 11/07/2013 Status: Chronic (10) CKD (chronic kidney disease) stage 3, GFR 30-59 ml/min Status: Chronic (11) Itchy eyes Status: Acute Hospital Course & Plan: Possible allergic cause. Departure Weight (Pounds): 165 Weight (Ounces): 8.0 Result Diagram: 05/30/1753 05/30/17552 Condition: Improved Discharge: Mcfp Discharge Instructions Home Meds Active Scripts Dextroamphetamine Sulfate (DEXTROAMPHETAMINE SULFATE) 5 Mg Tablet, 5 MG PO BID, #60 TAB Prov:NORY MESA MD 05/24/17 Glimepiride (GLIMEPIRIDE) 2 Mg Tablet, 1 TAB PO QDAY, #90 TAB 3 Refills Prov:NORY MESA MD 05/24/17 Clonazepam (CLONAZEPAM) 0.5 Mg Tab.rapdis, 0.5 MG PO BID, #60 TAB 5 Refills Prov:NORY MESA MD 05/20/17 Tiotropium [place] (SPIRIVA) 18 Mcg/Cap Inh, 18 MCG INH QDAY, #3 INH 3 Refills Prov:NORY MESA MD 05/20/17 Fluticasone/Salmeterol (ADVAIR 250-50 DISKUS) 1 Each Disk.w.dev, 1 EACH IH BID, #3 MISC 3 Refills Prov:NORY MESA MD 05/20/17 Esomeprazole Magnesium (NEXIUM) 40 Mg Capsule.dr, 1 CAP PO QDAY, #90 CAP 3 Refills Prov:NORY MESA MD 05/20/17 Mirtazapine (MIRTAZAPINE) 15 Mg Tablet, 15 MG PO QHS, #90 TAB 3 Refills Prov:NORY MESA MD 05/20/17 Escitalopram Oxalate (LEXAPRO) 20 Mg Tablet, 1.5 TAB PO QDAY, #135 TAB 3 Refills Prov:NORY MESA MD 05/20/17 Dextroamphetamine Sulfate (DEXTROAMPHETAMINE SULFATE) 10 Mg Capsule.er, 10 MG PO QAM, #30 CAP 0 Refills Prov:AJ HERRERA MD 04/05/17 Oxcarbazepine (OXCARBAZEPINE) 150 Mg Tablet, 1 TAB PO BID for to stabilize mood. , #180 TAB 3 Refills Prov:JOSHUA MCGILL APRN LEVEL VIAL INSPECTOR AND TESTER-C 02/22/17 Diltiazem Hcl (DILTIAZEM 24HR ER) 120 Mg Cap.er.24h, 120 MG PO QHS, #30 TAB Prov:NORY MESA MD 02/16/17 Diltiazem Hcl (CARDIZEM CD) 180 Mg Cap.er.24h, 180 MG PO QAM, #30 CAP 1 Refill Prov:NORY EMSA MD 02/16/17 Metoprolol Tartrate (METOPROLOL TARTRATE) 50 Mg Tab, 1 TAB PO BID, #180 TAB 4 Refills Prov:NORY MESA MD 02/04/17 Nitroglycerin (NITROSTAT) 0.4 Mg Subl, 1 TAB SL Q5MIN, #[address] 1 tab under tongue at the 1st sign of chest pain; repeat every 5 min. Prov:JOSHUA MCGILL DIRECTOR OF NEIGHBORHOOD SERVICE [facility] LEVEL VIAL INSPECTOR AND TESTER-C 11/20/16 Gabapentin (GABAPENTIN) 300 Mg Capsule, 300 MG PO QHS, #30 CAPSULE 11 Refills Prov:NORY MESA MD 10/16/16 Levothyroxine Sodium (LEVOTHYROXINE SODIUM) 100 Mcg Tablet, 100 MCG PO QDAY, # 90 TAB 4 Refills Prov:TIKA SCHAEFFER DNP, LEVEL VIAL INSPECTOR AND TESTER-BC 10/14/16 Oxygen (OXYGEN) Inha, 3 L INH DIRECTED, #2 L Wear 3 L Nasal Canula during the day and continue same dose of oxgen at night. Pt. will need portable oxygen to leave the house. Prov:NORY MESA MD 03/13/16 [place]-3 (FISH OIL 500 MG SOFTGEL) 500 Mg Cap, 1000 MG PO QDAY, #30 CAP Prov:YANELIS SO MD 02/27/15 Cyclosporine (RESTASIS) 1 Each Droperette, 1 EACH OU BID, #1 BOTTLE Prov:YANELIS SO MD 02/27/15 Reported Medications Nitrofurantoin Macrocrystal (NITROFURANTOIN) 50 Mg Capsule, 50 MG PO BID, CAPSULE 05/26/17 Promethazine Hcl (PROMETHAZINE HCL) 25 Mg Tablet, 25 MG PO PRN, TAB PRN every 8 hours 05/06/17 Sennosides (SENNA) 8.6 Mg Tablet, 8.6 MG PO QPM 03/07/17 Lactobacillus Combination No.4 (PROBIOTIC) 1 Each Capsule, 1 EACH PO QAM, CAPSULE 03/07/17 Folic Acid (FOLIC ACID) 1 Mg Tablet, 1 MG PO QAM, TAB 03/07/17 Dabigatran Etexilate Mesylate (PRADAXA) 150 Mg Capsule, 150 MG PO BID, CAPSULE 02/02/17 Cholecalciferol (Vitamin D3) (VITAMIN D3) 2,000 Unit Capsule, 2000 UNIT PO QDAY , CAPSULE 09/28/15 Diet: Regular Activity: With Walker Copies to: AJ HERRERA MD Venous Thromboembolism Antithrombotics Is Pt On Any Antithrombotics?: No Problem Qualifiers (1) Incontinence: Incontinence type: urinary WILSON GOMEZ May 31, 2017 09:41
[2017-05-31 11:02] VITALS: BP 139/93
[2017-05-31] MEDS: INSULIN HUM LISPRO 100 UN/ML 3 ML VIAL SUBQ PRN (11:31)
[2017-05-31] MEDS ORDERED: HEPARIN FLSH (PORT) 500 UN/5ML ONE (13:29)
[2017-05-31 14:37] VITALS: BP 147/98
== END 2017-05-31 16:00 | DRG 948 ==
LOC: ER 16:17 → MED 19:12
PROVIDERS: ADMIT Internal Medicine; ATTEND Internal Medicine
PROC: 30233N1 Transfusion of Nonautologous Red Blood Cells into Peripheral Vein, Percutaneous Approach (ICD-10-PCS; principal; 2017-05-29)
DX: R53.1 Weakness (principal); C56.9 Malignant neoplasm of unspecified ovary; C80.0 Disseminated malignant neoplasm, unspecified; N17.9 Acute kidney failure, unspecified; D64.9 Anemia, unspecified; I48.2 Chronic atrial fibrillation; F32.9 Major depressive disorder, single episode, unspecified; G47.419 Narcolepsy without cataplexy; N18.3 Chronic kidney disease, stage 3 (moderate); R32 Unspecified urinary incontinence; H57.8 Other specified disorders of eye and adnexa; R62.7 Adult failure to thrive; E03.9 Hypothyroidism, unspecified; G47.30 Sleep apnea, unspecified; K21.9 Gastro-esophageal reflux disease without esophagitis; G89.4 Chronic pain syndrome; D72.829 Elevated white blood cell count, unspecified; R51 Headache; R53.83 Other fatigue; T78.40XA Allergy, unspecified, initial encounter; Z79.84 Long term (current) use of oral hypoglycemic drugs; Z99.81 Dependence on supplemental oxygen; Z88.2 Allergy status to sulfonamides; Z88.0 Allergy status to penicillin; Z88.7 Allergy status to serum and vaccine; Z88.8 Allergy status to other drugs, medicaments and biological substances; Z92.21 Personal history of antineoplastic chemotherapy; Z86.73 Personal history of transient ischemic attack (TIA), and cerebral infarction without residual deficits; Z96.653 Presence of artificial knee joint, bilateral; Z87.440 Personal history of urinary (tract) infections; Z96.649 Presence of unspecified artificial hip joint; Z90.89 Acquired absence of other organs; Z98.890 Other specified postprocedural states; Z68.28 Body mass index [BMI] 28.0-28.9, adult; I12.9 Hypertensive chronic kidney disease with stage 1 through stage 4 chronic kidney disease, or unspecified chronic kidney disease; E11.22 Type 2 diabetes mellitus with diabetic chronic kidney disease; Z86.711 Personal history of pulmonary embolism
CPT/HCPCS: 36416; 71045; 81001; 82040; 82247; 82310; 82374; 82435; 82550; 82565; 82947; 82948; 83880; 84075; 84132; 84155; 84295; 84450; 84460; 84484; 84520; 85014; 85018; 85025; 85610; 85730; 86140; 86850; 86900; 86901; 86920; 87088; 87502; 93005; 94640; 96360; 96361; 96374; 97161; 97166; 99284; 99285; A4353; C9399; J1642; J2270; J3480; J3535; J7040; P9016

== ENCOUNTER 2017-07-29 11:26 | Outpatient (RCR) | payer MEDICARE, OTHER ==
[2017-05-07 08:41] VITALS: BMI 28.0
[~2017-07-29 11:26] MED LIST changes: +MORP100S32 PO; +NITR50CA35 PO; -RANI-324 PO; +RANI-366 PO
[2017-07-29 11:33] VITALS: BP 127/67
[2017-07-29] MEDS ORDERED: MORP100S32 PO (15:52)
--- NOTE | 2017-07-29 15:58 | ONCOLOGY FOLLOW UP NOTE ---
EVENT DATE: July 29, 2017 Patient with recurrent progressive ovarian carcinoma with very poor general condition. Patient came accompanied by her caregiver and her . Patient is here today to ask about further chemotherapy in her condition. From the medical point of view, patient is too frail to stand any further chemotherapy given she is progressing on her last chemotherapy. There was a big debate among her caregiver and her and her regarding the decision for treatment. Patient is planning to go to hospice, but she insisted to have more chemotherapy. We had a long discussion about further management and at the moment patient would like to wait until her daughter will come and see her in August, then they will decide about what will be the next plan for her treatment. There are a lot of social issues in her condition. She had recurrent left pleural effusion and she had drainage every three to four weeks, and for this reason I talked to the patient about placement of PleurX catheter so she can drain the fluid whenever it has accumulated, rather than going for thoracentesis every now and then, and she agreed with that. I am planning to refer her to Dr. Malloy, our surgeon here, for placement of the PleurX catheter. I will wait until her daughter will be in town and family will decide about her further care. MARIA ESTHER
[2017-07-29] MEDS ORDERED: FURO-45 PO (17:16)
[2017-07-29] MEDS ORDERED: POTA-28 PO (17:18)
[2017-07-29] MEDS ORDERED: IPRA3AMP21 IH (17:20)
[2017-07-30] MEDS ORDERED: DILT-145 PO (14:54)
[2017-07-30] MEDS ORDERED: DILT120C28 PO (14:54)
== END 2017-08-10 14:17 | disposition home or self-care (01) ==
LOC: ONC 11:26
PROVIDERS: ATTEND Internal Medicine Hematology
DX: C56.9 Malignant neoplasm of unspecified ovary (principal)
CPT/HCPCS: 99212

== ENCOUNTER 2017-08-06 01:13 | Day surgery (SDC) | payer MEDICARE, OTHER ==
[2017-05-07 08:41] VITALS: Ht 160 cm; Wt 73.9 kg
--- NOTE | 2017-08-04 16:14 | HISTORY AND PHYSICAL ---
DATE OF ADMISSION: August 06, 2017 CHIEF COMPLAINT Recurrent left pleural effusion. HISTORY OF PRESENT ILLNESS This is a 77-year-old female with metastatic ovarian cancer. She has had recurrent left pleural effusions requiring drainage every three weeks or so. She is quite debilitated. She has a history of renal insufficiency, hypertension, CVA, atrial fibrillation, pulmonary embolism, diabetes mellitus. PAST SURGICAL HISTORY * Cholecystectomy. * Hysterectomy. ALLERGIES 1. TETANUS. 2. SHANNA INHIBITOR. 3. PENICILLIN. 4. SULFA. 5. PREDNISONE. 6. MODAFINIL. PHYSICAL EXAMINATION GENERAL: A 77-year-old debilitated female in no acute distress. IMPRESSION Recurrent left pleural effusion. PLAN We will place a PleurX catheter for intermittent drainage of this effusion. We discussed the procedure, complications, recovery. They seem to understand and wish to proceed. MARIA ESTHER
[~2017-08-06] VITALS: Ht 160 cm; Wt 73.9 kg
[2017-08-06] VITALS (7 sets, daily range): BP systolic 107–132; BP diastolic 75–95
[~2017-08-06 01:13] MED LIST changes: +IPRA3AMP21 IH; +POTA-28 PO
--- NOTE | 2017-08-06 07:23 | Post Operative Progress Note ---
Post Operative Progress Note Date: Aug 06, 2017 Time: 13:26 Surgeon: cora Anesthesia: dr peguero Pre-Op Diagnosis: recurrent pleural effusion Post-Op Diagnosis: same Procedure(s): placement of left pleural drainage catheter Specimen Removed:(May be N/A): 700 cc hemorrhagic fluid returned CARLOS A PHOENIX MD Aug 06, 2017 07:23
[2017-08-06] MEDS ORDERED: ONDANSETRON 4 MG/2 ML VIAL ONE (08:31)
[2017-08-06] MEDS ORDERED: fentaNYL CITR 100 MCG/2 ML AMP ONE (08:58)
[2017-08-06] MEDS ORDERED: PROPOFOL EMUL(*) 10MG/ML 20 ML 40 ML ONE (08:59)
[2017-08-06] MEDS ORDERED: LIDOCAINE MPF 1% 5 ML VIAL ONE (08:59)
[2017-08-06] MEDS ORDERED: LEVOFLOXACIN/D5W*500 MG/100 ML 100 ML IVPB ONE ×2 (09:05→12:05)
[2017-08-06] MEDS ORDERED: MIDAZOLAM 2 MG/2 ML VIAL IVP PRN (09:05)
[2017-08-06] MEDS ORDERED: FAMOTIDINE 20 MG/50 ML PREMIX IVPB ONE (09:05)
[2017-08-06] MEDS ORDERED: LIDOCAINE/SOD BICARB 8.4% SYR ID ONE (09:05)
[2017-08-06] MEDS ORDERED: NORMOSOL R SOLN(*) 1000 ML BAG 1,000 ML IV PRN (09:05)
[2017-08-06] MEDS ORDERED: NS 0.9% 20 ML SDV 20 ML ONE (10:51)
[2017-08-06] MEDS ORDERED: KETAMINE HCL 200 MG/20 ML MDV ONE (10:52)
[2017-08-06] MEDS ORDERED: GLUCAGON 1 MG KIT ONE (10:58)
--- NOTE | 2017-08-06 11:15 | RADIOLOGY IMAGING REPORT ---
FACILITY: [facility] PATIENT NAME: El Hastings : 1940 MR: [id number] V: [id number] EXAM DATE: ORDERING PHYSICIAN: CARLOS A PHOENIX [place]CHN[place] [facility] [place] El [place] : 1940 Visit/Account:[id number] Date of Sevice: 08/06/2017 CHEST SINGLE AP HISTORY: Preoperative study. Port placement. COMPARISON: Chest x-ray May 25, 2017. FINDINGS: Cardiomediastinal contours: The heart is enlarged. Lungs and pleura: There is a new pleural-based soft tissue mass in the left chest. It likely represe nts a loculated pleural effusion. There is a smaller pleural effusion on the right side. There is l ikely passive atelectasis in both lung bases. Bones/soft tissues: Osteopenia. Degenerative changes in the left shoulder. Chronic rotator cuff tea r right side. There is colon the right internal jugular vein chest port catheter tip is in the SVC. IMPRESSION: 1. New pleural-based soft tissue mass in the left side very suspicious for loculated pneumothorax. The etiology is uncertain. 2. There is a small pneumothorax on the right side. 3. There is likely to be bibasilar atelectasis; left side greater than right. Results were called to CARLOS A PHOENIX M.D. At 08/06/2017 10:18 AM. Report Dictated By: Dwight Taylor MD at 08/06/2017 10:16 AM Report E-Signed By: Dwight Taylor MD at 08/06/2017 11:12 AM WSN:[id number]
[2017-08-06] MEDS ORDERED: ROPIVACAINE 0.2% 20 ML VIAL ONE (12:11)
[2017-08-06] MEDS ORDERED: LIDO/EPI 1% MDV 1:100,000 20ML INFIL ONE (12:24)
--- NOTE | 2017-08-06 13:30 | Short(Outpt) Discharge Summary ---
Discharge Summary Reason for Hosp/Final Diag: (1) Pleural effusion Hospital Course & Plan: pleur-x catheter placed. 700 cc removed. Departure Discharge to: Home Discharge Instructions Home Meds Active Scripts Diltiazem Hcl (CARDIZEM CD) 180 Mg Cap.er.24h, 180 MG PO QAM, #30 CAP 1 Refill Prov:MANISHA VÁZQUEZ MD 07/30/17 Diltiazem Hcl (DILTIAZEM 24HR ER) 120 Mg Cap.er.24h, 120 MG PO QHS, #30 TAB Prov:MANISHA VÁZQUEZ MD 07/30/17 Morphine Sulfate 20 MG/ML Oral Solution (ROXANOL 20 MG/ML) 100 Mg/5 Ml Solution , 0.5-1 ML PO Q1-2H for PAIN, #30 ML Prov:MANISHA VÁZQUEZ MD 07/29/17 Dextroamphetamine Sulfate (DEXTROAMPHETAMINE SULFATE) 5 Mg Tablet, 5 MG PO BID, #60 TAB Prov:MANISHA VÁZQUEZ MD 05/24/17 Tiotropium [place] (SPIRIVA) 18 Mcg/Cap Inh, 18 MCG INH QDAY, #3 INH 3 Refills Prov:MANISHA VÁZQUEZ MD 05/20/17 Fluticasone/Salmeterol (ADVAIR 250-50 DISKUS) 1 Each Disk.w.dev, 1 EACH IH BID, #3 MISC 3 Refills Prov:MANISHA VÁZQUEZ MD 05/20/17 Mirtazapine (MIRTAZAPINE) 15 Mg Tablet, 15 MG PO QHS, #90 TAB 3 Refills Prov:MANISHA VÁZQUEZ MD 05/20/17 Escitalopram Oxalate (LEXAPRO) 20 Mg Tablet, 1.5 TAB PO QDAY, #135 TAB 3 Refills Prov:MANISHA VÁZQUEZ MD 05/20/17 Dextroamphetamine Sulfate (DEXTROAMPHETAMINE SULFATE) 10 Mg Capsule.er, 10 MG PO QAM, #30 CAP 0 Refills Prov:AJ HERRERA MD 04/05/17 Oxcarbazepine (OXCARBAZEPINE) 150 Mg Tablet, 1 TAB PO BID for to stabilize mood. , #180 TAB 3 Refills Prov:JOSHUA MCGILL APRN PRODUCTION OPERATIONS ENGINEER-C 02/22/17 Metoprolol Tartrate (METOPROLOL TARTRATE) 50 Mg Tab, 1 TAB PO BID, #180 TAB 4 Refills Prov:MANISHA VÁZQUEZ MD 02/04/17 Gabapentin (GABAPENTIN) 300 Mg Capsule, 300 MG PO QHS, #30 CAPSULE 11 Refills Prov:MANISHA VÁZQUEZ MD 10/16/16 Levothyroxine Sodium (LEVOTHYROXINE SODIUM) 100 Mcg Tablet, 100 MCG PO QDAY, # 90 TAB 4 Refills Prov:TIKA SCHAEFFER DNP, PRODUCTION OPERATIONS ENGINEER-BC 10/14/16 Oxygen (OXYGEN) Inha, 3 L INH DIRECTED, #2 L Wear 3 L Nasal Canula during the day and continue same dose of oxgen at night. Pt. will need portable oxygen to leave the house. Prov:MANISHA VÁZQUEZ MD 03/13/16 Reported Medications Ipratropium/Albuterol Sulfate (IPRAT-ALBUT 0.5-3(2.5) MG/3 ML) 3 Ml Ampul.neb, 3 ML IH TID 07/29/17 Potassium Chloride (POTASSIUM CHLORIDE) 10 Meq Tablet.er, 10 MEQ PO QHS 07/29/17 Furosemide (FUROSEMIDE) 20 Mg Tablet, 1 TAB PO DAILY, TAB 07/29/17 Diet: Regular Activity: As Tolerated Special Instructions: evacuate pleural space weekly call if any problems CARLOS A PHOENIX MD Aug 06, 2017 13:30
--- NOTE | 2017-08-06 14:00 | RADIOLOGY IMAGING REPORT ---
[place] [facility] [place]: El [place] : 1940 MR: [id number] V: [id number] EXAM DATE: ORDERING PHYSICIAN: CARLOS A PHOENIX TECHNOLOGIST: Location: [facility] [place] Patient: El Hastings : 1940 Visit/Account:[id number] Date of Sevice: 08/06/2017 Exam type: CHEST SINGLE AP History: S/P PLEURAL DRAIN Comparison: August 06, 2017 at 9:33 AM. Findings: When compared the prior study performed earlier today there is now been placed a left lateral pleural drain. There is been a marked reduction in size of the left lateral pleural collection although sma ll collection does remain. Small right pleural effusion appears unchanged. There has been partial i mprovement of airspace consolidation the left lower lobe. Cardiac silhouette is unchanged in size. There is a right IJ port distal tip projects over this. Vena cava. IMPRESSION: 1. Interval placement of a left-sided pleural drain with interval decrease in size of the left pleur al effusion. There is also improving airspace consolidation left lung base Small right pleural effusion unchanged Report Dictated By: Ricarda Candelario MD at 08/06/2017 1:47 PM Report E-Signed By: Ricarda Candelario MD at 08/06/2017 1:56 PM WSN:[email or web address]
[2017-08-06] MEDS ORDERED: APAP/HYDROCODONE 325/5 TAB PO ONE (14:40)
--- NOTE | 2017-08-06 16:37 | OPERATIVE REPORT 1 ---
EVENT DATE: August 06, 2017 SURGEON: Kodak Jin MD ANESTHESIOLOGIST: Go Rodriguez MD ANESTHESIA: MAC PREOPERATIVE DIAGNOSIS Recurrent left pleural effusion. POSTOPERATIVE DIAGNOSIS Recurrent left pleural effusion. PROCEDURE PERFORMED Placement of a left pleural drainage catheter. DESCRIPTION OF PROCEDURE Patient was placed in the reclining position, and the anterior and lateral chest on the left were prepped and draped in a sterile fashion. She was given intravenous sedation. We marked the site in the anterior axillary line and another site on the anterior chest wall. We anesthetized this area with 1% Xylocaine with epinephrine, made two small stab incisions. We passed the catheter from the medial site to the lateral site. We then used a needle to enter the pleural space. Fluid was returned. We passed the guidewire. The needle was removed. We then did progressive dilatation and then put the dilator introducer sheath over the guidewire, removed the guidewire and dilator. We passed the catheter through the sheath. The tear-away sheath was removed. We then sutured the catheter in place with 2-0 silk. The insertion site in the lateral chest was closed with 4-0 Maxon. We then proceeded to remove 700 mL of sanguineous fluid. A sterile bandage was then placed. Patient tolerated the procedure well. No apparent complications. We did a portable chest x-ray in the recovery room. MARIA ESTHER
== END 2017-08-06 15:30 ==
LOC: OR 01:13
PROVIDERS: ATTEND Surgery
DX: J90 Pleural effusion, not elsewhere classified (principal); E11.9 Type 2 diabetes mellitus without complications
CPT/HCPCS: 32556; 36416; 71045; 82948; A9270; J1956; J2001; J2405; J2704; J3010; J3490; J7050; J1610; J2795